=== PATIENT | male | born 1940 | race Caucasian/White ===

== ENCOUNTER 2020-06-18 07:38 | Outpatient (REF) | payer MEDICARE, SELFPAY ==
[2020-06-18 08:41] LABS: MANUAL DIFF FLAG NO
[2020-06-18 08:52] LABS: Basophils Percent Auto 0.7 % (0-2); Eosinophils Absolute Auto 0.2 X10*3/uL (0.0-0.4); Eosinophils Percent Auto 3.4 % (0-4); Hematocrit 35.6 % (42-52); Hemoglobin 11.9 g/dl (14.0-18.0); Imm Gran Abs Auto 0.01 X10*3/uL (0.00-0.03); Imm Gran Pct Auto 0.2 % (0.0-0.4); Lymphocytes Absolute Auto 2.2 X10*3/uL (1.2-4.9); Lymphocytes Percent Auto 36.8 % (20-40); Mean Corpuscular HGB Conc 33.4 g/dl (31.0-36.0); Mean Corpuscular Hemoglobin 30.8 pg (27.0-33.0); Mean Corpuscular Volume 92.2 fL (80-98); Monocytes Absolute Auto 0.6 X10*3/uL (0.1-1.2); Monocytes Percent Auto 10.6 % (2-11); Neutrophils Absolute Auto 2.8 X10*3/uL (2.0-8.3); Neutrophils Percent Auto 48.3 % (45-73); Platelet Count 219 X10*3/uL (160-400); Red Blood Count 3.86 X10*6/uL (4.60-5.80); Red Cell Distribution Width 12.3 % (11.0-16.0); White Blood Count 5.9 X10*3/uL (4.8-10.8)
[2020-06-18 09:10] LABS: Alanine Aminotransferase 14 U/L (0-40); Alkaline Phosphatase 107 U/L (39-117); Anion Gap 12 (12-20); Aspartate Amino Transferase 15 U/L (5-37); Bilirubin Total 0.5 mg/dL (0.0-1.0); Blood Urea Nitrogen 26 mg/dL (9-16); Calcium 9.2 mg/dL (8.4-10.2); Carbon Dioxide 27 mmol/L (22-29); Chloride 104 mmol/L (96-108); Cholesterol 127 mg/dL; Estimated Glomerular Filt Rate 46; Glucose Fasting 169 mg/dL (60-99); HDL Cholesterol 38 mg/dL; LDL Cholesterol Calculated 65 mg/dl; Potassium 4.1 mmol/l (3.3-5.1); Sodium 139 mmol/L (135-145); Total Protein 6.7 g/dL (6.5-8.0); Triglycerides 120 mg/dL
[2020-06-18 09:16] LABS: Estimated Average Glucose 183 mg/dL
[2020-06-18 10:28] LABS: Prostate Specific Antigen 5.58 ng/mL (<0.05-4.0)
== END 2020-06-18 07:39 | disposition home or self-care (01) ==
LOC: HO.LAB 07:38
PROVIDERS: PCP Internal Medicine Medical Oncology; Referring Provider Physician Assistant Surgical; Visit Provider Internal Medicine Medical Oncology
DX: C61 Malignant neoplasm of prostate (principal); E11.8 Type 2 diabetes mellitus with unspecified complications; E78.5 Hyperlipidemia, unspecified
CPT/HCPCS: 36415; 80053; 80061; 83036; 84153; 85025

== ENCOUNTER 2020-09-17 07:44 | Outpatient (REF) | payer MEDICARE, SELFPAY ==
[2020-09-17 10:22] LABS: MANUAL DIFF FLAG NO
[2020-09-17 10:26] LABS: Basophils Percent Auto 0.5 % (0-2); Eosinophils Absolute Auto 0.2 X10*3/uL (0.0-0.4); Eosinophils Percent Auto 2.6 % (0-4); Hematocrit 34.5 % (42-52); Hemoglobin 11.3 g/dl (14.0-18.0); Imm Gran Abs Auto 0.01 X10*3/uL (0.00-0.03); Imm Gran Pct Auto 0.2 % (0.0-0.4); Lymphocytes Percent Auto 32.5 % (20-40); Mean Corpuscular HGB Conc 32.8 g/dl (31.0-36.0); Mean Corpuscular Hemoglobin 30.4 pg (27.0-33.0); Mean Corpuscular Volume 92.7 fL (80-98); Mean Platelet Volume 9.8 fL (9.4-12.4); Monocytes Absolute Auto 0.6 X10*3/uL (0.1-1.2); Monocytes Percent Auto 9.7 % (2-11); Neutrophils Absolute Auto 3.3 X10*3/uL (2.0-8.3); Neutrophils Percent Auto 54.5 % (45-73); Platelet Count 271 X10*3/uL (160-400); Red Blood Count 3.72 X10*6/uL (4.60-5.80); Red Cell Distribution Width 12.4 % (11.0-16.0); White Blood Count 6.1 X10*3/uL (4.8-10.8)
[2020-09-17 10:54] LABS: Alanine Aminotransferase 11 U/L (0-40); Albumin Level 3.9 g/dL (3.5-5.0); Alkaline Phosphatase 114 U/L (39-117); Anion Gap 13 (12-20); Aspartate Amino Transferase 12 U/L (5-37); Bilirubin Total 0.3 mg/dL (0.0-1.0); Blood Urea Nitrogen 24 mg/dL (9-16); Calcium 8.8 mg/dL (8.4-10.2); Carbon Dioxide 28 mmol/L (22-29); Chloride 102 mmol/L (96-108); Cholesterol 134 mg/dL; Estimated Glomerular Filt Rate 49; Glucose Fasting 201 mg/dL (60-99); HDL Cholesterol 44 mg/dL; LDL Cholesterol Calculated 64 mg/dl; Potassium 4.2 mmol/l (3.3-5.1); Sodium 139 mmol/L (135-145); Total Protein 6.8 g/dL (6.5-8.0); Triglycerides 130 mg/dL
[2020-09-17 10:55] LABS: Estimated Average Glucose 192 mg/dL; Hemoglobin A1c % 8.3 %
[2020-09-17 11:13] LABS: Prostate Specific Antigen 5.76 ng/mL (<0.05-4.0)
[2020-09-17 11:19] LABS: Creatinine Urine 84.61 mg/dL
[2020-09-22 14:27] LABS: Testosterone, Total 10 ng/dL (250-1100)
== END 2020-09-17 07:45 | disposition home or self-care (01) ==
LOC: HO.10HDL 07:44
PROVIDERS: Absent Provider Urology; Visit Provider Internal Medicine Medical Oncology
DX: C61 Malignant neoplasm of prostate (principal); E11.8 Type 2 diabetes mellitus with unspecified complications; E78.5 Hyperlipidemia, unspecified
CPT/HCPCS: 36415; 80053; 80061; 82043; 83036; 84153; 84403; 85025

== ENCOUNTER 2020-10-30 07:57 | Outpatient (REF) | payer MEDICARE, SELFPAY ==
[2020-10-30 10:51] LABS: MANUAL DIFF FLAG NO
[2020-10-30 11:00] LABS: Basophils Percent Auto 0.4 % (0-2); Eosinophils Absolute Auto 0.2 X10*3/uL (0.0-0.4); Eosinophils Percent Auto 3.2 % (0-4); Hematocrit 35.2 % (42-52); Hemoglobin 11.7 g/dl (14.0-18.0); Imm Gran Abs Auto 0.01 X10*3/uL (0.00-0.03); Imm Gran Pct Auto 0.1 % (0.0-0.4); Lymphocytes Percent Auto 28.1 % (20-40); Mean Corpuscular HGB Conc 33.2 g/dl (31.0-36.0); Mean Corpuscular Hemoglobin 30.5 pg (27.0-33.0); Mean Corpuscular Volume 91.9 fL (80-98); Mean Platelet Volume 9.9 fL (9.4-12.4); Monocytes Absolute Auto 0.5 X10*3/uL (0.1-1.2); Monocytes Percent Auto 7.7 % (2-11); Neutrophils Absolute Auto 4.2 X10*3/uL (2.0-8.3); Neutrophils Percent Auto 60.5 % (45-73); Platelet Count 264 X10*3/uL (160-400); Red Blood Count 3.83 X10*6/uL (4.60-5.80); Red Cell Distribution Width 12.7 % (11.0-16.0)
[2020-10-30 11:16] LABS: Anion Gap 14 (12-20); Blood Urea Nitrogen 22 mg/dL (9-16); Carbon Dioxide 26 mmol/L (22-29); Chloride 101 mmol/L (96-108); Estimated Glomerular Filt Rate 50; Potassium 4.2 mmol/L (3.3-5.1); Sodium 137 mmol/L (135-145)
== END 2020-10-30 07:58 | disposition home or self-care (01) ==
LOC: HO.10HDL 07:57
PROVIDERS: Visit Provider Internal Medicine Hypertension Specialist
DX: I13.10 Hypertensive heart and chronic kidney disease without heart failure, with stage 1 through stage 4 chronic kidney disease, or unspecified chronic kidney disease (principal); E11.22 Type 2 diabetes mellitus with diabetic chronic kidney disease; N18.30 Chronic kidney disease, stage 3 unspecified
CPT/HCPCS: 36415; 80051; 82310; 82565; 84520; 85025

== ENCOUNTER 2020-12-10 07:32 | Outpatient (REF) | payer MEDICARE, SELFPAY ==
[2020-12-10 10:03] LABS: MANUAL DIFF FLAG NO
[2020-12-10 10:18] LABS: Basophils Absolute Auto 0.1 X10*3/uL (0.0-0.2); Basophils Percent Auto 0.8 % (0-2); Eosinophils Absolute Auto 0.2 X10*3/uL (0.0-0.4); Eosinophils Percent Auto 3.2 % (0-4); Hematocrit 36.2 % (42-52); Imm Gran Abs Auto 0.01 X10*3/uL (0.00-0.03); Imm Gran Pct Auto 0.1 % (0.0-0.4); Lymphocytes Percent Auto 27.3 % (20-40); Mean Corpuscular HGB Conc 33.1 g/dl (31.0-36.0); Mean Corpuscular Hemoglobin 30.5 pg (27.0-33.0); Mean Corpuscular Volume 91.9 fL (80-98); Mean Platelet Volume 9.9 fL (9.4-12.4); Monocytes Absolute Auto 0.6 X10*3/uL (0.1-1.2); Monocytes Percent Auto 8.1 % (2-11); Neutrophils Absolute Auto 4.4 X10*3/uL (2.0-8.3); Neutrophils Percent Auto 60.5 % (45-73); Platelet Count 287 X10*3/uL (160-400); Red Blood Count 3.94 X10*6/uL (4.60-5.80); Red Cell Distribution Width 12.4 % (11.0-16.0); White Blood Count 7.3 X10*3/uL (4.8-10.8)
[2020-12-10 10:33] LABS: Estimated Average Glucose 157 mg/dL; Hemoglobin A1c % 7.1 %
[2020-12-10 10:49] LABS: Creatinine Urine 52.14 mg/dL; Microalbum/Creatinine Ratio Ur 55.6 ug/mg cr
[2020-12-10 10:55] LABS: Alanine Aminotransferase 11 U/L (0-40); Albumin Level 4.1 g/dL (3.5-5.0); Alkaline Phosphatase 144 U/L (39-117); Anion Gap 16 (12-20); Aspartate Amino Transferase 16 U/L (5-37); Bilirubin Total 0.4 mg/dL (0.0-1.0); Blood Urea Nitrogen 28 mg/dL (9-16); Calcium 8.9 mg/dL (8.4-10.2); Carbon Dioxide 26 mmol/L (22-29); Chloride 98 mmol/L (96-108); Cholesterol 142 mg/dL; Estimated Glomerular Filt Rate 46; Glucose Fasting 148 mg/dL (60-99); HDL Cholesterol 41 mg/dL; LDL Cholesterol Calculated 75 mg/dl; Potassium 4.4 mmol/L (3.3-5.1); Sodium 136 mmol/L (135-145); Total Protein 7.2 g/dL (6.5-8.0); Triglycerides 130 mg/dL
== END 2020-12-10 07:33 | disposition home or self-care (01) ==
LOC: HO.10HDL 07:32
PROVIDERS: Visit Provider Internal Medicine Medical Oncology
DX: C61 Malignant neoplasm of prostate (principal); E11.8 Type 2 diabetes mellitus with unspecified complications; E78.5 Hyperlipidemia, unspecified
CPT/HCPCS: 36415; 80053; 80061; 82043; 83036; 85025

== ENCOUNTER 2021-03-13 07:44 | Outpatient (REF) | payer MEDICARE, SELFPAY ==
[2021-03-13 08:09] LABS: MANUAL DIFF FLAG NO
[2021-03-13 08:15] LABS: Basophils Percent Auto 0.2 % (0-2); Eosinophils Absolute Auto 0.2 X10*3/uL (0.0-0.4); Eosinophils Percent Auto 2.2 % (0-4); Hematocrit 34.9 % (42-52); Hemoglobin 11.8 g/dl (14.0-18.0); Imm Gran Abs Auto 0.02 X10*3/uL (0.00-0.03); Imm Gran Pct Auto 0.2 % (0.0-0.4); Lymphocytes Absolute Auto 1.6 X10*3/uL (1.2-4.9); Lymphocytes Percent Auto 19.2 % (20-40); Mean Corpuscular HGB Conc 33.8 g/dl (31.0-36.0); Mean Corpuscular Hemoglobin 30.5 pg (27.0-33.0); Mean Corpuscular Volume 90.2 fL (80-98); Mean Platelet Volume 9.1 fL (9.4-12.4); Monocytes Absolute Auto 0.8 X10*3/uL (0.1-1.2); Monocytes Percent Auto 9.5 % (2-11); Neutrophils Absolute Auto 5.7 X10*3/uL (2.0-8.3); Neutrophils Percent Auto 68.7 % (45-73); Platelet Count 290 X10*3/uL (160-400); Red Blood Count 3.87 X10*6/uL (4.60-5.80); Red Cell Distribution Width 12.3 % (11.0-16.0); White Blood Count 8.4 X10*3/uL (4.8-10.8)
[2021-03-13 08:19] LABS: Estimated Average Glucose 177 mg/dL; Hemoglobin A1c % 7.8 %
[2021-03-13 09:26] LABS: Alanine Aminotransferase 102 U/L (0-40); Albumin Level 4.1 g/dL (3.5-5.0); Alkaline Phosphatase 268 U/L (39-117); Anion Gap 16 (12-20); Aspartate Amino Transferase 109 U/L (5-37); Bilirubin Total 0.6 mg/dL (0.0-1.0); Blood Urea Nitrogen 23 mg/dL (9-16); Calcium 9.6 mg/dL (8.4-10.2); Carbon Dioxide 25 mmol/L (22-29); Chloride 102 mmol/L (96-108); Cholesterol 119 mg/dL; Estimated Glomerular Filt Rate 40; Glucose Fasting 145 mg/dL (60-99); HDL Cholesterol 40 mg/dL; LDL Cholesterol Calculated 53 mg/dl; Potassium 4.5 mmol/L (3.3-5.1); Sodium 138 mmol/L (135-145); Total Protein 7.3 g/dL (6.5-8.0); Triglycerides 133 mg/dL
[2021-03-20 10:22] LABS: Testosterone, Total 12 ng/dL (250-1100)
== END 2021-03-13 07:45 | disposition home or self-care (01) ==
LOC: HO.LAB 07:44
PROVIDERS: Absent Provider Internal Medicine Medical Oncology; PCP Internal Medicine Medical Oncology; Visit Provider Urology
DX: Z12.5 Encounter for screening for malignant neoplasm of prostate (principal); C61 Malignant neoplasm of prostate; E11.8 Type 2 diabetes mellitus with unspecified complications; E78.5 Hyperlipidemia, unspecified; R97.20 Elevated prostate specific antigen [PSA]
CPT/HCPCS: 36415; 80053; 80061; 83036; 84153; 84403; 85025

== ENCOUNTER 2021-03-25 11:17 | Outpatient (REF) | payer MEDICARE, SELFPAY ==
[2021-03-25 13:39] LABS: Amylase 71 U/L (28-100); Gamma Glutamyl Transpeptidase 936 U/L (11-51); Lipase 45 U/L (8-78)
[2021-03-25 14:05] LABS: Erythrocyte Sedimentation Rate 89 MM/HR (0-15)
[2021-03-26 04:19] LABS: ~HepC Num1 0.14 S/CO (0.00-0.79); ~Hepatitis B Surface Antibody NONREACTIVE (Nonreactive); ~Hepatitis C Antibody Nonreactive (Nonreactive)
[2021-03-26 04:26] LABS: HBc Num1 0.08 S/CO (0.00-0.79); HBsAGNum1 0.13 S/CO (0.00-0.99); Hepatitis B Core Antibody Nonreactive (Nonreactive); Hepatitis B Surface Antigen Negative (Negative)
[2021-03-27 03:35] LABS: Hepatitis A Antibody IgM 0.32 Index (0-0.79); ~Hepatitis A Antibody IgM Nonreactive (Nonreactive)
[2021-03-27 12:51] LABS: Carbohydrate Antigen 19-9 85 U/mL (<34)
== END 2021-03-25 11:18 | disposition home or self-care (01) ==
LOC: HO.10HDL 11:17
PROVIDERS: Visit Provider Internal Medicine Medical Oncology
DX: Z01.84 Encounter for antibody response examination (principal); Z11.59 Encounter for screening for other viral diseases; C61 Malignant neoplasm of prostate
CPT/HCPCS: 36415; 82150; 82977; 83690; 85652; 86301; 86704; 86706; 86709; 86803; 87340

== ENCOUNTER 2021-03-30 11:35 | Outpatient (REF) | payer MEDICARE, SELFPAY ==
--- NOTE | ~2021-03-30 | CT_ITS ---
EXAMINATION: CT ABDOMEN WITHOUT CONTRAST CLINICAL INFORMATION: Prostate cancer. Elevated liver function tests. COMPARISON: Previous abdominal ultrasound June [address] of the abdomen and pelvis January 2007 TECHNIQUE: Contiguous axial thin section helical images of the abdomen were performed without contrast. The data set was reformatted in the coronal and sagittal planes and reviewed on an independent workstation. This CT examination was performed using dose optimization techniques as appropriate, variously including the following: *Automated exposure control *Adjustment of mA and/or kV according to patient size (this includes techniques or standardized protocols for targeted exams where dose is matched to indication/reason for exam; i.e. extremities or head) *Use of iterative reconstruction technique DLP: 424 mGy-cm FINDINGS: LUNG BASES: The lung bases are clear. There are pacemaker leads. There is mitral annular calcification. LIVER, GALLBLADDER, BILIARY TREE: The liver is normal in size, shape and attenuation. No focal liver lesion is seen. There is are small high attenuation densities in the gallbladder suggestive of gallstones. There is no intrahepatic or extrahepatic biliary duct dilatation. There is high attenuation seen in the distal common bile duct questionable common bile duct stones. The common bile duct is upper normal in size measuring 8 mm. PANCREAS: Normal SPLEEN: There are calcifications in the spleen suggestive of old granulomatous disease. ADRENAL GLANDS AND KIDNEYS: Normal BOWEL LOOPS: Normal. The appendix is normal. The stomach is normal. LYMPH NODES: There are prominent retroperitoneal lymph nodes. Given history of prostate cancer appearance is worrisome for metastatic disease. VASCULAR: There is evidence of atherosclerotic disease. There is mild dilatation of the left common iliac artery measuring 1.6 cm. BONES: There is mixed lytic and sclerotic disease in the L3 vertebral body suggestive of bony metastatic disease. There is some loss of height of the L3 vertebral body suggestive of mild pathologic compression fracture. There is multilevel degenerative disc disease and facet arthritis lower lumbar spine. CT/CT abdomen wo con IMPRESSION: No liver lesions seen. Gallstones and question small stones in the distal common bile duct. Enlarged retroperitoneal lymph nodes worrisome for metastatic disease. Pathologic compression fracture of the L3 vertebral body also worrisome for metastatic disease.
== END 2021-03-30 11:36 | disposition home or self-care (01) ==
LOC: HO.CT 11:35
PROVIDERS: PCP Internal Medicine Medical Oncology; Visit Provider Internal Medicine Medical Oncology
DX: C61 Malignant neoplasm of prostate (principal); R94.5 Abnormal results of liver function studies
CPT/HCPCS: 74150

== ENCOUNTER 2021-04-08 07:52 | Outpatient (REF) | payer MEDICARE, SELFPAY ==
[2021-04-08 08:43] LABS: MANUAL DIFF FLAG NO
[2021-04-08 08:49] LABS: Basophils Percent Auto 0.6 % (0-2); Eosinophils Absolute Auto 0.2 X10*3/uL (0.0-0.4); Eosinophils Percent Auto 3.1 % (0-4); Hematocrit 32.9 % (42-52); Imm Gran Abs Auto 0.02 X10*3/uL (0.00-0.03); Imm Gran Pct Auto 0.3 % (0.0-0.4); Lymphocytes Absolute Auto 1.8 X10*3/uL (1.2-4.9); Mean Corpuscular HGB Conc 33.4 g/dl (31.0-36.0); Mean Corpuscular Hemoglobin 30.9 pg (27.0-33.0); Mean Corpuscular Volume 92.4 fL (80-98); Mean Platelet Volume 9.4 fL (9.4-12.4); Monocytes Absolute Auto 0.6 X10*3/uL (0.1-1.2); Monocytes Percent Auto 9.8 % (2-11); Neutrophils Absolute Auto 3.6 X10*3/uL (2.0-8.3); Neutrophils Percent Auto 57.2 % (45-73); Platelet Count 246 X10*3/uL (160-400); Red Blood Count 3.56 X10*6/uL (4.60-5.80); Red Cell Distribution Width 12.5 % (11.0-16.0); White Blood Count 6.2 X10*3/uL (4.8-10.8)
[2021-04-08 09:10] LABS: Alanine Aminotransferase 10 U/L (0-40); Albumin Level 3.9 g/dL (3.5-5.0); Alkaline Phosphatase 216 U/L (39-117); Anion Gap 13 (12-20); Aspartate Amino Transferase 13 U/L (5-37); Bilirubin Total 0.5 mg/dL (0.0-1.0); Blood Urea Nitrogen 18 mg/dL (9-16); Calcium 9.2 mg/dL (8.4-10.2); Carbon Dioxide 26 mmol/L (22-29); Chloride 102 mmol/L (96-108); Estimated Glomerular Filt Rate 52; Gamma Glutamyl Transpeptidase 336 U/L (11-51); Glucose Random 143 mg/dL (60-115); Potassium 4.2 mmol/L (3.3-5.1); Sodium 137 mmol/L (135-145); Total Protein 6.8 g/dL (6.5-8.0)
[2021-04-08 09:19] LABS: Lactate Dehydrogenase 159 U/L (118-273)
[2021-04-08 09:29] LABS: Prostate Specific Antigen 7.83 ng/mL (<0.05-4.0)
== END 2021-04-08 07:53 | disposition home or self-care (01) ==
LOC: HO.LAB 07:52
PROVIDERS: PCP Internal Medicine Medical Oncology; Visit Provider Internal Medicine Medical Oncology
DX: Z12.5 Encounter for screening for malignant neoplasm of prostate (principal); C61 Malignant neoplasm of prostate; E11.8 Type 2 diabetes mellitus with unspecified complications; E78.5 Hyperlipidemia, unspecified; I10 Essential (primary) hypertension
CPT/HCPCS: 36415; 80053; 82977; 83615; 84153; 85025

== ENCOUNTER 2021-06-29 11:34 | Outpatient (REF) | payer MEDICARE, SELFPAY ==
[2021-06-29 13:40] LABS: MANUAL DIFF FLAG NO
[2021-06-29 13:48] LABS: Basophils Absolute Auto 0.1 X10*3/uL (0.0-0.2); Eosinophils Absolute Auto 0.5 X10*3/uL (0.0-0.4); Eosinophils Percent Auto 7.4 % (0-4); Hematocrit 36.2 % (42-52); Imm Gran Abs Auto 0.02 X10*3/uL (0.00-0.03); Imm Gran Pct Auto 0.3 % (0.0-0.4); Lymphocytes Absolute Auto 1.6 X10*3/uL (1.2-4.9); Lymphocytes Percent Auto 21.2 % (20-40); Mean Corpuscular HGB Conc 33.1 g/dl (31.0-36.0); Mean Corpuscular Hemoglobin 30.2 pg (27.0-33.0); Mean Platelet Volume 9.9 fL (9.4-12.4); Monocytes Absolute Auto 0.8 X10*3/uL (0.1-1.2); Monocytes Percent Auto 10.3 % (2-11); Neutrophils Absolute Auto 4.4 X10*3/uL (2.0-8.3); Neutrophils Percent Auto 59.8 % (45-73); Platelet Count 298 X10*3/uL (160-400); Red Blood Count 3.98 X10*6/uL (4.60-5.80); Red Cell Distribution Width 13.4 % (11.0-16.0); White Blood Count 7.3 X10*3/uL (4.8-10.8)
[2021-06-29 14:11] LABS: Alanine Aminotransferase 10 U/L (0-40); Albumin Level 3.8 g/dL (3.5-5.0); Alkaline Phosphatase 134 U/L (39-117); Anion Gap 15 (12-20); Aspartate Amino Transferase 19 U/L (5-37); Bilirubin Total 0.6 mg/dL (0.0-1.0); Blood Urea Nitrogen 11 mg/dL (9-16); Calcium 9.1 mg/dL (8.4-10.2); Carbon Dioxide 31 mmol/L (22-29); Chloride 96 mmol/L (96-108); Estimated Glomerular Filt Rate 56; Glucose Random 200 mg/dL (60-115); Sodium 139 mmol/L (135-145); Total Protein 6.6 g/dL (6.5-8.0)
== END 2021-06-29 11:35 | disposition home or self-care (01) ==
LOC: HO.10HDL 11:34
PROVIDERS: Visit Provider Internal Medicine
DX: Z12.5 Encounter for screening for malignant neoplasm of prostate (principal); C61 Malignant neoplasm of prostate
CPT/HCPCS: 36415; 80053; 84153; 85025

== ENCOUNTER 2021-07-15 12:54 | Outpatient (REF) | payer MEDICARE, SELFPAY ==
--- NOTE | ~2021-07-15 | XR_ITS ---
EXAMINATION: XR LUMBOSACRAL SPINE CLINICAL INFORMATION: Status post fusion. COMPARISON: Sagittal imaging bone windows from CT dated 03/30/2021. TECHNIQUE: Three views of the lumbosacral spine. FINDINGS: Once again sclerotic bony lesion partially collapsed at L3. Pedicular screws and rods from L2 to L4. Good position. No listhesis is seen here. Otherwise mild degenerative changes. XR/XR lumbar spine 2-3V IMPRESSION: Hardware in place. Once again sclerotic partially collapsed L3 lesion is seen but no convincing evidence of change compared to sagittal CT image of 03/30/2021. No evidence for hardware failure. No acute finding.
== END 2021-07-15 12:55 | disposition home or self-care (01) ==
LOC: HO.XRAY 12:54
PROVIDERS: PCP Internal Medicine Medical Oncology; Visit Provider Neurological Surgery
DX: M54.50 Low back pain, unspecified (principal)
CPT/HCPCS: 72100

== ENCOUNTER 2021-07-29 07:58 | Outpatient (REF) | payer MEDICARE, SELFPAY ==
[2021-07-29 09:55] LABS: MANUAL DIFF FLAG NO
[2021-07-29 09:58] LABS: Basophils Percent Auto 0.8 % (0-2); Eosinophils Absolute Auto 0.2 X10*3/uL (0.0-0.4); Eosinophils Percent Auto 3.9 % (0-4); Hematocrit 35.3 % (42.0-52.0); Hemoglobin 11.5 g/dl (14.0-18.0); Imm Gran Abs Auto 0.02 X10*3/uL (0.00-0.03); Imm Gran Pct Auto 0.4 % (0.0-0.4); Lymphocytes Absolute Auto 1.6 X10*3/uL (1.2-4.9); Lymphocytes Percent Auto 29.5 % (20-40); Mean Corpuscular HGB Conc 32.6 g/dl (31.0-36.0); Mean Corpuscular Hemoglobin 29.6 pg (27.0-33.0); Mean Corpuscular Volume 90.7 fL (80.0-98.0); Mean Platelet Volume 9.3 fL (9.4-12.4); Monocytes Absolute Auto 0.5 X10*3/uL (0.1-1.2); Monocytes Percent Auto 9.9 % (2-11); Neutrophils Percent Auto 55.5 % (45-73); Platelet Count 344 X10*3/uL (160-400); Red Blood Count 3.89 X10*6/uL (4.60-5.80); Red Cell Distribution Width 13.4 % (11.0-16.0); White Blood Count 5.3 X10*3/uL (4.8-10.8)
[2021-07-29 10:14] LABS: Estimated Average Glucose 169 mg/dL; Hemoglobin A1c % 7.5 %
[2021-07-29 10:31] LABS: Alanine Aminotransferase 13 U/L (0-40); Albumin Level 3.6 g/dL (3.5-5.0); Alkaline Phosphatase 162 U/L (39-117); Anion Gap 14 (12-20); Aspartate Amino Transferase 17 U/L (5-37); Bilirubin Total 0.5 mg/dL (0.0-1.0); Blood Urea Nitrogen 14 mg/dL (9-16); Calcium 9.3 mg/dL (8.4-10.2); Carbon Dioxide 29 mmol/L (22-29); Chloride 99 mmol/L (96-108); Estimated Glomerular Filt Rate > 60; Glucose Fasting 212 mg/dL (60-99); Potassium 3.5 mmol/L (3.3-5.1); Sodium 138 mmol/L (135-145); Total Protein 6.6 g/dL (6.5-8.0)
[2021-07-29 10:55] LABS: Prostate Specific Antigen 8.38 ng/mL (<0.05-4.0)
== END 2021-07-29 07:59 | disposition home or self-care (01) ==
LOC: HO.10HDL 07:58
PROVIDERS: Visit Provider Internal Medicine Medical Oncology
DX: Z12.5 Encounter for screening for malignant neoplasm of prostate (principal); C61 Malignant neoplasm of prostate; E11.8 Type 2 diabetes mellitus with unspecified complications
CPT/HCPCS: 36415; 80053; 83036; 84153; 85025

== ENCOUNTER 2021-09-17 11:54 | Outpatient (REF) | payer MEDICARE, SELFPAY ==
[2021-09-17 14:00] LABS: MANUAL DIFF FLAG NO
[2021-09-17 14:12] LABS: Basophils Absolute Auto 0.1 X10*3/uL (0.0-0.2); Basophils Percent Auto 0.7 % (0-2); Eosinophils Absolute Auto 0.1 X10*3/uL (0.0-0.4); Eosinophils Percent Auto 1.8 % (0-4); Hematocrit 36.4 % (42.0-52.0); Hemoglobin 12.1 g/dl (14.0-18.0); Imm Gran Abs Auto 0.02 X10*3/uL (0.00-0.03); Imm Gran Pct Auto 0.3 % (0.0-0.4); Lymphocytes Absolute Auto 2.1 X10*3/uL (1.2-4.9); Mean Corpuscular HGB Conc 33.2 g/dl (31.0-36.0); Mean Corpuscular Hemoglobin 29.7 pg (27.0-33.0); Mean Corpuscular Volume 89.2 fL (80.0-98.0); Mean Platelet Volume 9.7 fL (9.4-12.4); Monocytes Absolute Auto 0.7 X10*3/uL (0.1-1.2); Monocytes Percent Auto 10.2 % (2-11); Platelet Count 313 X10*3/uL (160-400); Red Blood Count 4.08 X10*6/uL (4.60-5.80); Red Cell Distribution Width 13.2 % (11.0-16.0)
[2021-09-17 14:20] LABS: Estimated Average Glucose 160 mg/dL; Hemoglobin A1c % 7.2 %
[2021-09-17 14:31] LABS: Alanine Aminotransferase 8 U/L (0-40); Alkaline Phosphatase 120 U/L (39-117); Anion Gap 15 (12-20); Aspartate Amino Transferase 17 U/L (5-37); Bilirubin Total 0.6 mg/dL (0.0-1.0); Blood Urea Nitrogen 25 mg/dL (9-16); Calcium 9.6 mg/dL (8.4-10.2); Carbon Dioxide 27 mmol/L (22-29); Chloride 99 mmol/L (96-108); Estimated Glomerular Filt Rate 46; Glucose Random 168 mg/dL (60-115); Potassium 3.8 mmol/L (3.3-5.1); Sodium 137 mmol/L (135-145); Total Protein 7.3 g/dL (6.5-8.0)
[2021-09-18 12:21] LABS: Free Prostate Spec Ag 3.2 ng/mL; Percent Free Prostate Spec Ag 46 % (calc) (>25); Prostate Specific Ag Total 6.9 ng/mL (< OR = 4.0)
== END 2021-09-17 11:55 | disposition home or self-care (01) ==
LOC: HO.10HDL 11:54
PROVIDERS: Visit Provider Internal Medicine Medical Oncology
DX: Z12.5 Encounter for screening for malignant neoplasm of prostate (principal); C61 Malignant neoplasm of prostate
CPT/HCPCS: 36415; 80053; 83036; 84154; 85025

== ENCOUNTER 2021-10-14 08:40 | Outpatient (REF) | payer MEDICARE, SELFPAY ==
[2021-10-14 10:18] LABS: MANUAL DIFF FLAG NO
[2021-10-14 10:22] LABS: Basophils Absolute Auto 0.1 X10*3/uL (0.0-0.2); Basophils Percent Auto 0.8 % (0-2); Eosinophils Absolute Auto 0.2 X10*3/uL (0.0-0.4); Eosinophils Percent Auto 2.5 % (0-4); Hematocrit 33.3 % (42.0-52.0); Imm Gran Abs Auto 0.02 X10*3/uL (0.00-0.03); Imm Gran Pct Auto 0.3 % (0.0-0.4); Lymphocytes Absolute Auto 1.7 X10*3/uL (1.2-4.9); Lymphocytes Percent Auto 27.4 % (20-40); Mean Corpuscular Volume 90.7 fL (80.0-98.0); Mean Platelet Volume 9.5 fL (9.4-12.4); Monocytes Absolute Auto 0.6 X10*3/uL (0.1-1.2); Monocytes Percent Auto 10.3 % (2-11); Neutrophils Absolute Auto 3.5 x10*3/uL (2.0-8.3); Neutrophils Percent Auto 58.7 % (45-73); Platelet Count 285 X10*3/uL (160-400); Red Blood Count 3.67 X10*6/uL (4.60-5.80); Red Cell Distribution Width 13.5 % (11.0-16.0)
[2021-10-14 10:36] LABS: Estimated Average Glucose 160 mg/dL; Hemoglobin A1c % 7.2 %
[2021-10-14 10:44] LABS: Alanine Aminotransferase 8 U/L (0-40); Albumin Level 3.8 g/dL (3.5-5.0); Alkaline Phosphatase 114 U/L (39-117); Anion Gap 12 (12-20); Aspartate Amino Transferase 16 U/L (5-37); Bilirubin Total 0.4 mg/dL (0.0-1.0); Blood Urea Nitrogen 18 mg/dL (9-16); Calcium 9.3 mg/dL (8.4-10.2); Carbon Dioxide 27 mmol/L (22-29); Chloride 103 mmol/L (96-108); Cholesterol 148 mg/dL; Estimated Glomerular Filt Rate 47; Glucose Fasting 181 mg/dL (60-99); HDL Cholesterol 61 mg/dL; LDL Cholesterol Calculated 69 mg/dl; Potassium 4.2 mmol/L (3.3-5.1); Sodium 138 mmol/L (135-145); Total Protein 6.8 g/dL (6.5-8.0); Triglycerides 93 mg/dL
[2021-10-14 11:13] LABS: Ferritin 184 ng/mL (20-250); Prostate Specific Antigen 9.84 ng/mL (<0.05-4.0)
== END 2021-10-14 08:41 | disposition home or self-care (01) ==
LOC: HO.10HDL 08:40
PROVIDERS: Visit Provider Internal Medicine Medical Oncology
DX: Z12.5 Encounter for screening for malignant neoplasm of prostate (principal); C61 Malignant neoplasm of prostate; E78.5 Hyperlipidemia, unspecified; E11.22 Type 2 diabetes mellitus with diabetic chronic kidney disease; N18.9 Chronic kidney disease, unspecified; D63.1 Anemia in chronic kidney disease
CPT/HCPCS: 36415; 80053; 80061; 82728; 83036; 84153; 85025

== ENCOUNTER 2021-12-21 11:43 | Outpatient (REF) | payer MEDICARE, SELFPAY ==
[2021-12-21 13:22] LABS: MANUAL DIFF FLAG NO
[2021-12-21 13:25] LABS: Basophils Percent Auto 0.6 % (0-2); Eosinophils Absolute Auto 0.1 X10*3/uL (0.0-0.4); Eosinophils Percent Auto 1.7 % (0-4); Hematocrit 34.4 % (42.0-52.0); Hemoglobin 11.5 g/dl (14.0-18.0); Imm Gran Abs Auto 0.01 X10*3/uL (0.00-0.03); Imm Gran Pct Auto 0.2 % (0.0-0.4); Lymphocytes Absolute Auto 1.7 X10*3/uL (1.2-4.9); Lymphocytes Percent Auto 26.4 % (20-40); Mean Corpuscular HGB Conc 33.4 g/dl (31.0-36.0); Mean Corpuscular Hemoglobin 29.9 pg (27.0-33.0); Mean Corpuscular Volume 89.6 fL (80.0-98.0); Mean Platelet Volume 9.4 fL (9.4-12.4); Monocytes Absolute Auto 0.8 X10*3/uL (0.1-1.2); Monocytes Percent Auto 12.3 % (2-11); Neutrophils Absolute Auto 3.9 x10*3/uL (2.0-8.3); Neutrophils Percent Auto 58.8 % (45-73); Platelet Count 298 X10*3/uL (160-400); Red Blood Count 3.84 X10*6/uL (4.60-5.80); Red Cell Distribution Width 13.2 % (11.0-16.0); White Blood Count 6.6 X10*3/uL (4.8-10.8)
[2021-12-21 13:45] LABS: Estimated Average Glucose 148 mg/dL; Hemoglobin A1c % 6.8 %
[2021-12-21 14:26] LABS: Alanine Aminotransferase 8 U/L (0-40); Albumin Level 3.9 g/dL (3.5-5.0); Alkaline Phosphatase 125 U/L (39-117); Anion Gap 16 (12-20); Aspartate Amino Transferase 22 U/L (5-37); Bilirubin Total 0.2 mg/dL (0.0-1.0); Blood Urea Nitrogen 30 mg/dL (9-16); Calcium 9.6 mg/dL (8.4-10.2); Carbon Dioxide 26 mmol/L (22-29); Chloride 98 mmol/L (96-108); Estimated Glomerular Filt Rate 32; Glucose Random 203 mg/dL (60-115); Potassium 3.9 mmol/L (3.3-5.1); Sodium 136 mmol/L (135-145); Total Protein 7.3 g/dL (6.5-8.0)
[2021-12-21 14:50] LABS: PSA,Total (Free>4and<10) 13.65 ng/mL (0.00-4.00)
== END 2021-12-21 11:44 | disposition home or self-care (01) ==
LOC: HO.10HDL 11:43
PROVIDERS: Visit Provider Internal Medicine Medical Oncology
DX: C61 Malignant neoplasm of prostate (principal); E11.8 Type 2 diabetes mellitus with unspecified complications; Z12.5 Encounter for screening for malignant neoplasm of prostate
CPT/HCPCS: 36415; 80053; 83036; 84153; 85025

== ENCOUNTER 2022-01-28 21:32 | Inpatient (IN) | payer MEDICARE, SELFPAY ==
--- NOTE | ~2022-01-28 | XR_ITS ---
EXAMINATION: PORTABLE CHEST 1 VIEW CLINICAL INFORMATION: cough flu . COMPARISON: No recent pertinent prior studies are available for comparison. TECHNIQUE: Portable frontal view of the chest was obtained. FINDINGS: Lungs are mildly hypoexpanded with no superimposed effusion, edema, or pneumothorax. Subtle increased markings at the left base may be due to overlying structures. Patient status post sternotomy and CABG with vascular calcification in aorta and mitral annular calcification seen. Dual-lead pacemaker is noted with lead tips overlying the expected right atrium and right ventricle. XR/XR chest 1V IMPRESSION: Hypoexpanded with chronic appearing and postoperative changes but no definitive acute airspace disease.
--- NOTE | 2022-01-28 21:37 | ED_ITS ---
HPI - General Adult General Chief complaint: General Medical Stated complaint: Hypoglycemia Time Seen by Provider: 01/28/22 21:36 Source: patient and family Mode of arrival: EMS History of Present Illness HPI narrative: Patient 81 years old legally blind with history of diabetes, hypertension, coronary disease status post CABG and pacemaker, history of prostate cancer lives alone at home patient just admitted 2 days ago with influenza A comes here for feeling weak poor oral intake for last 2 days nasal congestion and dry cough no significant shortness of breath but patient feels very tired and exhausted also patient blood sugar been on the lower side as he is not eating lowest blood sugar was 64 today Related Data Home Medications Medication Instructions Recorded Confirmed Lantus U-100 Insulin 01/28/22 Novolog Flexpen U-100 Insulin 01/28/22 amlodipine 01/28/22 apalutamide 60 mg tablet (Erleada) 60 mg PO 01/28/22 doxycycline hyclate 100 mg tablet 1 tab PO BID 01/28/22 01/28/22 furosemide 40 mg tablet 1 tab PO BID 01/28/22 01/28/22 meclizine 25 mg tablet 1 tab PO TID 01/28/22 01/28/22 niacin 500 mg tablet 1 tab PO DAILY 01/28/22 01/28/22 potassium chloride 20 mEq 1 tab PO DAILY 01/28/22 01/28/22 tablet,extended release Allergies Allergy/AdvReac Type Severity Reaction Status Date / Time Penicillins [PCN] Allergy Unknown UNKNOWN Unverified 05/29/20 16:10 Review of Systems Review of Systems: Yes all other systems are reviewed and are negative [facility] Past Medical History Medical History (Updated 01/28/22 @ 23:26 by Vicente Laurent MD) CKD (chronic kidney disease) stage 3, GFR 30-59 ml/min Diabetes Diabetes with retinopathy Glaucoma History of heart block HTN (hypertension) Legally blind Surgical History (Updated 01/28/22 @ 22:49 by Steve Ness MD) Status post cardiac pacemaker procedure Social History Social History Advance Directives: No Advance Directives Information Provided: Yes Physical Exam ED Vital Signs: Vital Signs - 24 hr 01/28/22 21:46 01/28/22 22:30 Temperature 98.6 F 97.7 F Pulse Rate 90 97 Respiratory Rate 18 16 Blood Pressure 132/70 137/77 Pulse Oximetry 96 94 BMI result Body Mass Index 28.4 Appearance: Alert. Oriented X3. No acute distress. Eyes: No pallor/icterus, legally blind ENT: Pharynx normal. Oral Mucosa moist Neck: Normal inspection. Neck supple. CVS: Normal heart rate and rhythm. Pulses normal. Respiratory: No respiratory distress. Equal air entry bilateral, no w heezing/rales/rhonchi Abdomen: Soft and nontender. Bowel sounds are present, no mass palpable, no CVA tenderness Skin: Skin warm and dry. Normal skin color. Normal skin turgor. Extremities: No lower extremity edema. No calf tenderness Neuro: Oriented X 3. No motor deficit. Medical Decision Making MDM Narrative Medical decision making narrative: Patient influenza A failure to thrive alone at home at this time unable take care of him self will admit patient for supportive treatment including IV hydration Lab Data Lab results reviewed: Yes I reviewed the patient's lab results. Result diagrams: 01/28/22 22:10 01/28/22 22:59 Labs: Lab Results 01/28/22 01/28/22 01/28/22 Range/Units 22:10 22:10 22:10 WBC 5.7 (4.8-10.8) X10*3/uL RBC 4.25 L (4.60-5.80) X10*6/uL Hgb 12.7 L (14.0-18.0) g/dl Hct 37.6 L (42.0-52.0) % MCV 88.5 (80.0-98.0) fL MCH 29.9 (27.0-33.0) pg MCHC 33.8 (31.0-36.0) g/dl RDW 13.7 (11.0-16.0) % Plt Count 268 (160-400) X10*3/uL MPV 10.0 (9.4-12.4) fL Immature Gran % (Auto) 0.4 (0.0-0.4) % Neut % (Auto) 55.4 (45-73) % Lymph % (Auto) 29.9 (20-40) % [place] % (Auto) 13.5 H (2-11) % Eos % (Auto) 0.4 (0-4) % Baso % (Auto) 0.4 (0-2) % Lymph # (Auto) 1.7 (1.2-4.9) X10*3/uL [place] # (Auto) 0.8 (0.1-1.2) X10*3/uL Eos # (Auto) 0.0 (0.0-0.4) X10*3/uL Baso # (Auto) 0.0 (0.0-0.2) X10*3/uL Abs Immat Gran (auto) 0.02 (0.00-0.03) X10*3/uL Absolute Neuts (auto) 3.2 (2.0-8.3) x10*3/uL Absolute Nucleated RBC 0.000 (0.0-0.012) X10*3/uL Nucleated RBC % (auto) 0.0 (0.0-0.2) /100WBC COVID-19 (MICHAELA) Negative (Negative) COVID-19 Clin Com See Note Influenza Type A (SIMA) Positive A (Negative) Influenza Type B (SIMA) Negative (Negative) Influenza A & B Note See Note ECG Data Attestation: I personally reviewed and interpreted this ECG as follows: Interpretation: Ventricularly paced rhythm rate 71 beats per minute no acute ST T wave changes no acute ischemia Discharge Plan Discharge Clinical Impression: Influenza A, Failure to thrive in adult Patient Disposition: Admitted As Inpatient
[2022-01-28 21:46] VITALS: BP 132/70; PULSE 90; RESP 18; TEMP 37; O2SAT 96; BMI 28.4
--- NOTE | 2022-01-28 21:52 | ECG_ITS ---
Test Reason : WEAKNESS Blood Pressure : / mmHG Vent. Rate : 071 BPM Atrial Rate : 097 BPM P-R Int : 000 ms QRS Dur : 196 ms QT Int : 484 ms P-R-T Axes : 000 -74 095 degrees QTc Int : 525 ms Ventricular-paced rhythm Abnormal ECG When compared with ECG of 24-AUG-2017 11:15, Electronic ventricular pacemaker has replaced Wide QRS rhythm Referred By: Vicente Laurent Electronically Signed By:LILO JONES
[2022-01-28] MEDS: 0.9 % Sodium Chloride 1,000 ML 999 ML IV (22:13)
[2022-01-28 22:30] VITALS: BP 137/77; PULSE 97; RESP 16; TEMP 36.5; O2SAT 94
[2022-01-28 22:30] LABS: MANUAL DIFF FLAG NO
--- NOTE | 2022-01-28 22:30 | PM.IMHP ---
History of Present Illness Date of Service: 01/28/22 Chief Complaint: Failure to thrive 81 year old male with IDDM with retinopathy/nephropathy, glaucoma, legally blind, CKD3, CAD s/p CABGx4, Complete heart block s/p pacemaker, HTN, HLD, history of prostate cancer, legally blind, chronic venous stasis, uses walker at home to get around, he lives with his who is presently hospitalized with influenza. Patient was brought in by family due to failure to thrive, he has not be able to eat much. Sugar was 54 at home and 64 here. He is also positive for influenza with active symptoms, negative covid Review of Systems Review of Systems: Gen: no fever Resp: no sob, + cough CV: no chest, no BOWERS, no leg edema GI: No n/v, no abd pain Neuro: No confusion Yes all other systems are reviewed and are negative [facility] Medical History (Updated 01/28/22 @ 23:28 by Vicente Laurent MD) CKD (chronic kidney disease) stage 3, GFR 30-59 ml/min Diabetes Diabetes with retinopathy Glaucoma History of heart block HTN (hypertension) Legally blind Surgical History (Updated 01/28/22 @ 22:49 by Steve Ness MD) Status post cardiac pacemaker procedure Social History Advance Directives: No Advance Directives Information Provided: Yes Meds Allergies Allergy/AdvReac Type Severity Reaction Status Date / Time Penicillins [PCN] Allergy Unknown UNKNOWN Unverified 05/29/20 16:10 Active Medications: Current Medications Sodium Chloride (Ns) 1,000 mls @ 999 mls/hr IV .Q1H1M ONE Stop: 01/28/22 23:09 Last Admin: 01/28/22 22:13 Dose: 999 mls/hr Documented by: Home Medications Medication Instructions Recorded Confirmed Last Taken Type Lantus U-100 Insulin 01/28/22 01/28/22 History Novolog Flexpen U-100 Insulin 01/28/22 01/28/22 History amlodipine 01/28/22 01/28/22 History apalutamide 60 mg tablet (Erleada) 60 mg PO 01/28/22 01/28/22 History doxycycline hyclate 100 mg tablet 1 tab PO BID 01/28/22 01/28/22 01/28/22 History furosemide 40 mg tablet 1 tab PO BID 01/28/22 01/28/22 01/28/22 History meclizine 25 mg tablet 1 tab PO TID 01/28/22 01/28/22 01/28/22 History niacin 500 mg tablet 1 tab PO DAILY 01/28/22 01/28/22 01/28/22 History potassium chloride 20 mEq 1 tab PO DAILY 01/28/22 01/28/22 01/28/22 History tablet,extended release Physical Exam Vital Signs and Narrative: Vital Signs: Last Vital Signs Temp 98.6 F 01/28/22 21:46 Pulse 90 01/28/22 21:46 Resp 18 01/28/22 21:46 BP 132/70 01/28/22 21:46 Pulse Ox 96 01/28/22 21:46 BMI result Body Mass Index 28.4 Const: Other: Constitutional: Alert, in no distress, Mental Status: Oriented to person, place and time. Eyes: Pupils are equal, round and reactive to light. Ear, Nose and Throat: Oropharynx clear, mucous membranes moist. Ears and nose without eformities. Trachea midline. Respiratory: Clear to auscultation. No wheezing, rales or rhonchi. Cardiovascular: S1 S2 regular. No murmurs, rubs or gallops. Gastrointestinal: Abdomen soft, non-tender, non-distended. Normal bowel sounds.? Neurologic: Cranial nerves II-XII grossly intact. No focal neurological deficits. Moves all extremities spontaneously.? Skin: No rashes or lesions.?Chronic venous stasis changes of both leg, left is bigger than right--this is chronic Musculoskeletal: No cyanosis or clubbing. Psychiatric: Normal mood and affect? Results Labs CBC and Chem 7: 01/28/22 22:10 01/28/22 22:59 Assessment and Plan (1) Hypoglycemia: Status: Acute (2) HTN (hypertension): Status: Acute (3) Diabetes: Status: Acute (4) Failure to thrive in adult: Status: Acute Plan 81 year old male with IDDM with retinopathy/nephropathy, glaucoma, legally blind, CKD3, CAD s/p CABGx4, Complete heart block s/p pacemaker, HTN, HLD, history of prostate cancer, legally blind, chronic venous stasis, uses walker at home to get around, he lives with his who is presently hospitalized with influenza. He presents with weakness, adult failure to thrive, hypoglycemia and + Influenza. #influenza--supportive care and Tamiflu #Failure to thrive, weakness d/t influenze -Hydrate, PT eval before discharge #? Not able to eat--Bed side swallow eval by speech #Diabetes #HTN #HLD #DVT prophylaxis--heparin Admission qamar span at least 2 midnight due to need for treatment for influenze causing failure to thrive in elderly, hypoglycemia unable to eat and need IVF Quality Stroke Does the patient have a stroke diagnosis?: No VTE Prior VTE?: No VTE Risk Level:: Medical - moderate - high VTE Device Contraindication: Treatment Not Tolerated VTE Drug Contraindication: N/A - Med Ordered
[2022-01-28 22:38] LABS: Basophils Percent Auto 0.4 % (0-2); Eosinophils Percent Auto 0.4 % (0-4); Hematocrit 37.6 % (42.0-52.0); Hemoglobin 12.7 g/dl (14.0-18.0); Imm Gran Abs Auto 0.02 X10*3/uL (0.00-0.03); Imm Gran Pct Auto 0.4 % (0.0-0.4); Lymphocytes Absolute Auto 1.7 X10*3/uL (1.2-4.9); Lymphocytes Percent Auto 29.9 % (20-40); Mean Corpuscular HGB Conc 33.8 g/dl (31.0-36.0); Mean Corpuscular Hemoglobin 29.9 pg (27.0-33.0); Mean Corpuscular Volume 88.5 fL (80.0-98.0); Monocytes Absolute Auto 0.8 X10*3/uL (0.1-1.2); Monocytes Percent Auto 13.5 % (2-11); Neutrophils Absolute Auto 3.2 x10*3/uL (2.0-8.3); Neutrophils Percent Auto 55.4 % (45-73); Platelet Count 268 X10*3/uL (160-400); Red Blood Count 4.25 X10*6/uL (4.60-5.80); Red Cell Distribution Width 13.7 % (11.0-16.0); White Blood Count 5.7 X10*3/uL (4.8-10.8)
[2022-01-28 22:46] LABS: COVID-19 Test Negative (Negative); IDNOW Serial# 9DB6401D; Influenza A Positive (Negative); Influenza B2 Negative (Negative)
[2022-01-28 23:09] VITALS: RESP 16; O2SAT 95
[2022-01-28 23:22] LABS: Anion Gap 17 (12-20); Blood Urea Nitrogen 51 mg/dL (9-16); Calcium 9.1 mg/dL (8.4-10.2); Carbon Dioxide 25 mmol/L (22-29); Chloride 97 mmol/L (96-108); Creatinine Clr Calc Pharmacy 32.3; Estimated Glomerular Filt Rate 38; Glucose Random 132 mg/dL (60-115); Potassium 3.6 mmol/L (3.3-5.1); Sodium 135 mmol/L (135-145)
[2022-01-28] MEDS: Oseltamivir Phosphate 75 MG CAPSULE PO (23:31)
[2022-01-29] MEDS: Dextrose 5 % and 0.45 % NaCl 1,000 ML 75 ML IVCONT ×2 (01:06→13:55)
--- NOTE | 2022-01-29 06:26 | PC.NURSE ---
pt cleaned, linens changed. pt resting comfortably at this time.
[2022-01-29 07:36] VITALS: BP 137/65; PULSE 81; RESP 14; O2SAT 98
--- NOTE | 2022-01-29 08:12 | HO.PM.IMPN ---
Subjective Subjective Date of Service: 01/29/22 Interval History: FTT, influenza A Review of Systems Generalized weak, tolerating little bit of diet Patient denies any chest pain or nausea or vomiting or abdominal pain. Physical Exam Vital Signs: Vital Signs: Last Vital Signs Temp 97.7 F 01/28/22 22:30 Pulse 81 01/29/22 07:36 Resp 14 01/29/22 07:36 BP 137/65 01/29/22 07:36 Pulse Ox 98 01/29/22 07:36 BMI result Body Mass Index 28.4 Appearance: Alert.? Oriented x3.? Generalized weak, not eating much. cvs: rrr, [id number] . res: clear to auscultation ,no rhonchii or wheezing abd: no rebound or guarding ,nt, bs present. ext pulses present , no cyanosis ,has b/l leg ch changes . neuro: axo3 , nonfocal. Objective Data Active Medications Acetaminophen (Acetaminophen 325 Mg Tablet) 650 mg PO Q6H PRN PRN Reason: Pain, Mild (Pain Scale 1-3) Dextrose/Sodium Chloride (D51/2ns) 1,000 mls @ 75 mls/hr IVCONT .[id number] [facility] Last Admin: 01/29/22 01:06 Dose: 75 mls/hr Documented by: SUZETTE Magnesium Hydroxide (Milk Of Magnesia 30 Ml Oral.Susp) 30 ml PO DAILY PRN PRN Reason: Constipation Melatonin (Melatonin 3 Mg Tablet) 6 mg PO BEDTIME PRN PRN Reason: Insomnia Ondansetron HCl (Ondansetron Hcl 4 Mg/2 Ml Vial) 4 mg IVPUSH Q8H PRN PRN Reason: Nausea and Vomiting Oseltamivir Phosphate (Oseltamivir Phosphate 30 Mg Capsule) 30 mg PO Q12H [facility] Stop: 02/02/22 11:59 Sodium Chloride (0.9 % Sodium Chloride Flush 3 Ml Syringe) 3 ml IVFLUSH QSHIFT [facility] Last Admin: 01/29/22 07:12 Dose: Not Given Documented by: YORDAN Non-Admin Reason: IV Running Labs CBC & Chem 7: 01/28/22 22:10 01/28/22 22:59 Labs: Laboratory Results - last 24 hr 01/28/22 01/28/22 01/28/22 22:10 22:10 22:10 MCV 88.5 MCH 29.9 MCHC 33.8 RDW 13.7 Plt Count 268 MPV 10.0 Immature Gran % (Auto) 0.4 Neut % (Auto) 55.4 Lymph % (Auto) 29.9 Page % (Auto) 13.5 H Eos % (Auto) 0.4 Baso % (Auto) 0.4 Lymph # (Auto) 1.7 Page # (Auto) 0.8 Eos # (Auto) 0.0 Baso # (Auto) 0.0 Abs Immat Gran (auto) 0.02 Absolute Neuts (auto) 3.2 Absolute Nucleated RBC 0.000 Nucleated RBC % (auto) 0.0 Anion Gap Estim Creat Clear Calc Estimated GFR Random Glucose Calcium COVID-19 (MICHAELA) Negative COVID-19 Clin Com See Note Influenza Type A (SIMA) Positive A Influenza Type B (SIMA) Negative Influenza A & B Note See Note 01/28/22 22:59 MCV MCH MCHC RDW Plt Count MPV Immature Gran % (Auto) Neut % (Auto) Lymph % (Auto) Page % (Auto) Eos % (Auto) Baso % (Auto) Lymph # (Auto) Page # (Auto) Eos # (Auto) Baso # (Auto) Abs Immat Gran (auto) Absolute Neuts (auto) Absolute Nucleated RBC Nucleated RBC % (auto) Anion Gap 17 Estim Creat Clear Calc 32.3 Estimated GFR 38 Random Glucose 132 H Calcium 9.1 COVID-19 (MICHAELA) COVID-19 Clin Com Influenza Type A (SIMA) Influenza Type B (SIMA) Influenza A & B Note Assessment and Plan (1) Influenza A: Status: Acute (2) Failure to thrive in adult: Status: Acute (3) MARIALUISA (acute kidney injury): Status: Acute Plan 81 year old male with IDDM with retinopathy/nephropathy, glaucoma, legally blind,? CKD3, CAD s/p CABGx4, Complete heart block s/p pacemaker, HTN, HLD, ? history of prostate cancer,? legally blind, chronic venous stasis, uses walker at home to get around, he lives with his who is presently hospitalized with influenza. He presents with weakness, adult failure to thrive, hypoglycemia and + Influenza. influenza--supportive care and Tamiflu Swallow evaluation Failure to thrive, weakness d/t influenze -Hydrate, PT eval recommended-rehab. ? Not able to eat--Bed side swallow eval by speech Diabetes: fs with coverage , continue home regimen. HTN: Continue home meds. HLD: Continue home medications marialuisa on ckd (? stage): gentle hydration DVT prophylaxis--heparin Quality Stroke Does the patient have a stroke diagnosis?: No VTE Prior VTE?: No VTE Risk Level:: Medical - moderate - high VTE Device Contraindication: Treatment Not Tolerated VTE Drug Contraindication: N/A - Med Ordered
[2022-01-29 08:41] VITALS: BP 137/65; PULSE 81; O2SAT 98
--- NOTE | 2022-01-29 11:41 | PHA.MEDREC ---
MED [facility], [place] ALSO LISTED LISINOPRIL 5 MG, HAS NOT BEEN FILLED RECENTLY, PATIENTS DAUGHTER WILL CONFIRM IF HE IS SUPPOSED TO BE ON IT STILL AND LET US KNOW Pharmacy Consult ? Medication Reconciliation Pharmacy has completed the medication reconciliation.
--- NOTE | 2022-01-29 11:45 | MHC.SL.SWA ---
Speech Pathologist Impression: WFL Dysphasia Diet Status: No Change Liquid Consistency and Strategies for Safe Swallow: Liquid Intake Recommendation: Thin Liquid Intake Strategies: Small Sips Solid Food Consistency: Dietary Recommendations: Regular Additional Modifications to Solid Foods: Patient seen for bedside dysphagia evaluation while in the ED. Patient denied difficulty swallowing. No clinical signs of aspiration with PO trials. Recommend REGULAR solids and THIN liquids, with pills WHOLE in LIQUID. D/t limited dentition, recommend avoid tough, difficult to chew solids, sticky consistencies; alternate bites of food with sips of liquid, chew food well. Patient is able to feed himself. SUPERVISOR PUBLIC MESSAGE SERVICE to f/u 1x time. Oral Medication Intake: Whole with Liquid Please contact the pharmacy regarding appropriate crushable or liquid drug formulations that are available whenever modified delivery is recommended. Compensatory Strategies and Precautions to be Taken for Safe Swallow: Sitting Upright (90 deg) Small Bites and Sips Alternate Liquids/Solids Rate of Ingestion Change Avoid Specific Foods Supervision While Eating and Drinking for Safe Swallow: Intermittent Supervision Foods to Avoid: D/t limited dentition, recommend avoid tough, difficult to chew solids, sticky consistencies. Swallowing Recommended Treatments: Compens. Strategy Educat. Recommendation for Speech: Inpatient Speech Therapy Comment: 1 f/u Frequency/Duration: Date Range for Service Req: Timeline to reassess: Arch Pad Cementer Clinican/Clinical Fellow: No Supervisory Statement: I have reviewed and agree with the student/clinical fellow's documentation: N/A Speech Language Pathologist: Anila Scott M.A., CCC-SUPERVISOR PUBLIC MESSAGE SERVICE
[2022-01-29] MEDS: Oseltamivir Phosphate 30 MG CAPSULE PO (13:55)
[2022-01-29 14:40] LABS: Glucose, Whole Blood 250 mg/dL (60-115)
[2022-01-29] MEDS: Insulin Lispro 100 UNIT/ML 3 ML VIAL SUBCUT ×2 (14:45→20:03)
--- NOTE | 2022-01-29 15:37 | PC.NURSE ---
RN-RN report called in to [facility]. room is being cleaned. will update when the room is ready.
[2022-01-29 16:30] VITALS: BP 158/64; PULSE 70; RESP 17; TEMP 36.4; O2SAT 97
[2022-01-29 16:44] LABS: Glucose, Whole Blood 230 mg/dL (60-115)
[2022-01-29 19:02] VITALS: BP 123/55; PULSE 62; RESP 18; TEMP 36.2; O2SAT 95
[2022-01-29] MEDS: 0.9 % Sodium Chloride Flush 3 ML SYRINGE IVFLUSH (20:03)
[2022-01-29] MEDS: Dorzolamide/Timolo 2.23%/0.68% 10 ML DRBTL 1 DROP EYE-RIGHT (20:03)
[2022-01-29] MEDS: Brimonidine Tartrate 0.2% Oph 5 ML BOTTLE 1 DROP EYE-BOTH (20:03)
[2022-01-29] MEDS: Insulin Glargine,Hum.rec.anlog 100 UNIT/ML 10 ML VIAL 10 UNIT SUBCUT (20:03)
[2022-01-29 20:16] LABS: Glucose, Whole Blood 258 mg/dL (60-115)
[2022-01-30] VITALS: BP 129/65; PULSE 55; RESP 18; TEMP 36.7; O2SAT 97
[2022-01-30] MEDS: Oseltamivir Phosphate 30 MG CAPSULE PO ×2 (00:46→11:41)
[2022-01-30 02:38] LABS: Glucose, Whole Blood 112 mg/dL (60-115)
[2022-01-30] MEDS: Dextrose 5 % and 0.45 % NaCl 1,000 ML 75 ML IVCONT (02:49)
[2022-01-30 03:56] VITALS: BP 121/49; PULSE 57; RESP 20; TEMP 36.8; O2SAT 94
[2022-01-30 07:24] LABS: Glucose, Whole Blood 150 mg/dL (60-115)
[2022-01-30 07:43] VITALS: BP 156/77; PULSE 58; RESP 20; TEMP 36.6; O2SAT 96
[2022-01-30 08:01] LABS: Anion Gap 12 (12-20); Blood Urea Nitrogen 34 mg/dL (9-16); Carbon Dioxide 27 mmol/L (22-29); Chloride 101 mmol/L (96-108); Creatinine Clr Calc Pharmacy 42.2; Estimated Glomerular Filt Rate 51; Glucose Random 140 mg/dL (60-115); Potassium 3.5 mmol/L (3.3-5.1); Sodium 136 mmol/L (135-145)
[2022-01-30 08:06] LABS: Calcium 8.7 mg/dL (8.4-10.2)
--- NOTE | 2022-01-30 08:13 | MHC.CM.PN ---
CM met with Patient at bedside and addressed IMM with him, providing him with the original and placing a copy on the chart. 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 Home/no services is the goal and CM has initiated and will follow for dc planning. PCP is Dr. David Alva and Patient has received Covid/[employer] vax X3.
--- NOTE | 2022-01-30 08:39 | MHC.CM.PN ---
CM met briefly at bedside with Patient and addressed IMM with him (Original left at bedside and a copy placed on the chart)but per his request, CM also spoke with Patient's /HCP/Padmini at [phone]. Patient lives in an Senior apartment complex with his and he uses a walker to assist with mobility. [facility] TIRE WRAPPER to assist with ADLs. PT is recommending STR and Patient/ are agreeable to the initiation of a SNF search. CM has initiated and will follow for dc planning. Patient is Legally Blind and he has received [employer]/covid vax X3. Patient's PCP is Dr. Rashad Lal.
--- NOTE | 2022-01-30 08:56 | MHC.CM.PN ---
CM Initial Assessment done today at 8:16 AM is written in the wrong chart.
[2022-01-30] MEDS: 0.9 % Sodium Chloride Flush 3 ML SYRINGE IVFLUSH (09:11)
[2022-01-30] MEDS: Ferrous Sulfate 324 MG TABLET.DR PO (09:11)
[2022-01-30] MEDS: Atorvastatin Calcium 80 MG TABLET PO (09:11)
[2022-01-30] MEDS: amLODIPine Besylate 10 MG TABLET PO (09:12)
[2022-01-30] MEDS: Aspirin Enteric Coated 81 MG TABLET.DR PO (09:12)
[2022-01-30] MEDS: Dorzolamide/Timolo 2.23%/0.68% 10 ML DRBTL 1 DROP EYE-RIGHT (09:13)
[2022-01-30] MEDS: Insulin Glargine,Hum.rec.anlog 100 UNIT/ML 10 ML VIAL 10 UNIT SUBCUT (09:13)
[2022-01-30] MEDS: Brimonidine Tartrate 0.2% Oph 5 ML BOTTLE 1 DROP EYE-BOTH (09:13)
[2022-01-30 11:13] LABS: Glucose, Whole Blood 199 mg/dL (60-115)
[2022-01-30] MEDS: Insulin Lispro 100 UNIT/ML 3 ML VIAL SUBCUT (11:36)
--- NOTE | 2022-01-30 12:37 | W.MHC.F2F ---
Service Date Service Date: 01/30/22 Encounter Date of encounter: 01/30/22 Encounter: Decreased p.o. intake, dehydration . Reasons for Services Signs and symptoms assessed: nora on ckd, influenza A, decreased po intake Reason for physical therapy: home safety and mobility, therapeutic exercises, restore joint function, gait/transfer training, assess need for DME, ADL training, energy conservation and other MD Overseeing Care: Rashad Lal Homebound: Leaving the home is medically contraindicated at this time without the asist of a device and/or another person due th the listed conditions above and below. Reason homebound: weakness related to hospital stay Homebound supporting statement: patient is geneeralised weak post hospitalization,has multiple comorbidities including nora,dehydration and influenza -need help to go to appointments. Certification: Based on the above findings, I certify that this patient is confined to the home and needs intermittent longterm care, physical therapy and/or speech therapy, or continues to need occupational therapy. The patient is under my care, and I have initiated the establishment of the plan of care. The patient will be followed by a physician who will periodically review the plan of care.
--- NOTE | 2022-01-30 13:01 | P.DS_ITS ---
DS: Providers Provider Date of Service: 01/30/22 Date of admission: 01/28/22 22:55 Primary care physician: Rashad Lal MD DS: Diagnosis Discharge Diagnosis (1) Influenza A: Status: Acute (2) Failure to thrive in adult: Status: Acute (3) NORA (acute kidney injury): Status: Acute DS: Summary Hospital Course Hospital Course: 81 year old male with IDDM with retinopathy/nephropathy, glaucoma, legally blind,? CKD3, CAD s/p CABGx4, Complete heart block s/p pacemaker, HTN, HLD, ? history of prostate cancer,? legally blind, chronic venous stasis, uses walker at home to get around, he lives with his who is presently hospitalized with influenza. Patient was brought in by family? due to failure to thrive, he has not be able to eat much. Sugar was 54 at home and 64 here. He is also positive for influenza with active symptoms, negative covid. Hospital course: Patient was admitted with NORA on CKD, poor oral intake,, influenza A: Started on gentle hydration, encouraged for p.o. intake and also treated with Tamiflu- patient seems to be improved significantly, also seen by PT recommended rehab patient categorically refuses that son is at bedside he also agrees with the patient and does not want him to go to rehab. Patient will be going home with Tamiflu, encouraged for adequate hydration, adjusted lasix to once daily, repeat BMP next week and so far Lasix dosing adjusted to once daily-which can be adjusted back to b.i.d. once sees PCP and get BMP done. Patient says that he already has appointment with the PCP next week-monitor BMP and electrolytes out patiently. Further management outpatient. PT recommended rehab but patient and patient family refusing to go to rehab, we offered home PT but patient family feel comfortable to taking care of him at home and they do not want currently to wait for home PT arrangement-discussed with them in detail and they understand above management and want to take patient home, case management is aware to reach out to them if they need any help. Time Spent with Patient Time attestation: Total time spent providing and/or coordinating discharge services: Discharge coordination time: Greater than 30 minutes Quality: Safe Use of Opioids Does Pt have an Active Cancer Diagnosis on the Problem List?: No Quality: Stroke Does the patient have a stroke diagnosis?: No Physical Exam Vital Signs: Vital Signs: Last Vital Signs Temp 97.9 F 01/30/22 07:43 Pulse 58 01/30/22 07:43 Resp 20 01/30/22 07:43 BP 156/77 H 01/30/22 07:43 Pulse Ox 96 01/30/22 07:43 BMI result Body Mass Index 28.4 Appearance: Alert.? Oriented x3.? Eating better, feels more better. cvs: rrr, [id number] . res: clear to auscultation ,no rhonchii or wheezing abd: no rebound or guarding ,nt, bs present. ext pulses present , no cyanosis ,has b/l leg ch changes . neuro: axo3 , nonfocal. DS: Data Data Completed and Pending Labs on day of discharge: Laboratory Results - last 24 hr 01/29/22 01/29/22 01/29/22 14:37 16:36 19:09 Sodium Potassium Chloride Carbon Dioxide Anion Gap BUN Creatinine Estim Creat Clear Calc Estimated GFR POC Glucose 250 H 230 H 258 H Random Glucose Calcium 01/30/22 01/30/22 01/30/22 02:33 06:09 07:13 Sodium 136 Potassium 3.5 Chloride 101 Carbon Dioxide 27 Anion Gap 12 BUN 34 H Creatinine 1.34 Estim Creat Clear Calc 42.2 Estimated GFR 51 POC Glucose 112 150 H Random Glucose 140 H Calcium 8.7 01/30/22 11:00 Sodium Potassium Chloride Carbon Dioxide Anion Gap BUN Creatinine Estim Creat Clear Calc Estimated GFR POC Glucose 199 H Random Glucose Calcium Additional Comments Additional comments: ?XR/XR chest 1V IMPRESSION: Hypoexpanded with chronic appearing and postoperative changes but no definitive acute airspace disease. Discharge Plan Discharge Patient Disposition: Home Health Service Discharge Diagnosis: influenza A, FTT ,nora Referrals: Rashad Lal MD [Primary Care Provider] - 1 Week Discharge Medications: New oseltamivir 30 mg Capsule 30 mg PO Q12H Qty: 8 0RF Continued Erleada 60 mg Tablet 240 mg PO DAILY@1200 0RF niacin 500 mg tablet 1 tab PO DAILY 0RF potassium chloride 20 mEq tablet extended release 1 tab PO DAILY 0RF Lantus U-100 Insulin 10 units subcut BID 0RF insulin aspart U-100 [Novolog Flexpen U-100 Insulin] 100 unit/mL (3 mL) Insulin Pen 10 unit SUBCUT BID@0730,1630 0RF insulin aspart U-100 [Novolog Flexpen U-100 Insulin] 100 unit/mL (3 mL) Insulin Pen 6 unit SUBCUT DAILY@1130 0RF rosuvastatin 40 mg Tablet 40 mg PO DAILY 0RF amlodipine 10 mg Tablet 10 mg PO DAILY 0RF aspirin [Aspir-81] 81 mg Tablet,Delayed Release (Dr/Ec) 81 mg PO DAILY 0RF bimatoprost 0.01 % Drops 1 drp ophthalmic-Right BEDTIME 0RF brimonidine 0.2 % Drops 1 drp OPHTHALMIC (EYE) TID 0RF Rx Instructions: administer approximately 8 hours apart dorzolamide-timolol 22.3-6.8 mg/mL Drops 1 drp ophthalmic-Right BID 0RF ferrous sulfate 325 mg (65 mg iron) Tablet 325 mg PO DAILY 0RF Changed furosemide 40 mg tablet 1 tab PO DAILY Qty: 0 0RF Discharge Orders: Discharge Order (Routine); Ordered 01/30/22 Ordered By: Homer Martins Diet: advance to usual diet and diabetic diet Activity on Discharge: As tolerated Stand Alone Forms: Patient Portal Discharge page Care Plan Goals: Patient came with NORA on CKD, poor oral intake,, influenza A: Started on gentle hydration, encouraged for p.o. intake and also treated with Tamiflu-patient seems to be improved significantly, also seen by PT recommended rehab patient categorically refuses that son is at bedside he also agrees with the patient and does not want him to go to rehab. Patient will be going home with Tamiflu, encouraged for adequate hydration, adjusted lasix to once daily, repeat BMP next week and so far Lasix dosing adjusted to once daily-which can be adjusted back to b.i.d. once sees PCP and get BMP done. Patient says that he already has appointment with the PCP next week-monitor BMP and electrolytes out patiently. Further management outpatient. Health Concerns: Patient needs to have adequate hydration and and will need consistent encouragement for p.o. intake which is already improving. Complete the Tamiflu course. NORA seems to be improved significantly, monitor BMP outpatient as above. Plan of Treatment: As above. Assessment: As above.
--- NOTE | 2022-01-30 14:00 | MHC.CM.PN ---
PT recommends STR;Patient and Son prefer that Patient go home.MD put in dc order for home WITH services. MULTIPLE referrals to VNAs have been made but as of this time, no VNA has accepted (i.e. out of network with Patient's insurance, out of services area, at capacity, weekend staffing, staffing shortage). DAVON met with Patient, his and his Son and they continue to refuse to consider STR and state that they have adequate support at home ([facility] services for ADL type assistance). DAVON has relayed this information to Attending.
--- NOTE | 2022-01-30 14:49 | MHC.CM.PN ---
DAVON and met with Patient and his Son to confirm that VNA is NOT in place. DAVON explained that if an accepting VNA were to surface then CM would let Patient/family know, but as of this time, Patient will be returning home without VNA. Again, Patient and Son agree with this plan and want to go home today and clearly understand that there is no VNA in place. DAVON and encouraged Patient and Son to see PCP HAMMAD (Son indicated f/u appointment is already scheduled)because PCP's office is able to order VNA as well.
[2022-01-30 14:57] VITALS: BP 126/62; PULSE 51; RESP 20; TEMP 36.1; O2SAT 97
--- NOTE | 2022-01-31 08:12 | MHC.CM.PN ---
[facility] has accepted Patient. Per VNA's request, the face to face and dc summary has been successfully faxed to [phone]. CM spoke with Patient's Padmini and informed her to expect a call from this VNA regarding SOC.
== END 2022-01-30 15:44 | disposition home health service (06) | DRG 194 ==
LOC: HO.ED 22:15 → HO.EDOVER 23:24 → HO.IMC 01-29 14:39
PROVIDERS: Admitting Provider Internal Medicine; Emergency Provider Internal Medicine; PCP Internal Medicine Medical Oncology; Visit Provider Internal Medicine
DX: J10.1 Influenza due to other identified influenza virus with other respiratory manifestations (principal); N17.9 Acute kidney failure, unspecified; H54.8 Legal blindness, as defined in USA; R62.7 Adult failure to thrive; Z68.28 Body mass index [BMI] 28.0-28.9, adult; I12.9 Hypertensive chronic kidney disease with stage 1 through stage 4 chronic kidney disease, or unspecified chronic kidney disease; N18.30 Chronic kidney disease, stage 3 unspecified; E11.22 Type 2 diabetes mellitus with diabetic chronic kidney disease; E11.649 Type 2 diabetes mellitus with hypoglycemia without coma; I25.10 Atherosclerotic heart disease of native coronary artery without angina pectoris; Z20.822 Contact with and (suspected) exposure to COVID-19; Z95.1 Presence of aortocoronary bypass graft; Z95.0 Presence of cardiac pacemaker; Z88.0 Allergy status to penicillin; Z79.4 Long term (current) use of insulin; Z79.899 Other long term (current) drug therapy
CPT/HCPCS: 36415; 71045; 80048; 82947; 85025; 87502; 87635; 92610; 93005; 96360; 97162; 99219; 99285

== ENCOUNTER 2022-02-05 19:26 | Inpatient (IN) | payer MEDICARE, SELFPAY ==
--- NOTE | ~2022-02-05 | XR_ITS ---
EXAMINATION: XR CHEST CLINICAL INFORMATION: Failure to thrive COMPARISON: Chest x-ray 01/28/2022 TECHNIQUE: Frontal portable view of the chest was obtained. 1955 hours FINDINGS: Post median sternotomy. Pacemaker lead in right atrium and right ventricle. Cardiac mediastinal contours are normal. No pulmonary vascular. Lungs normally aerated. No pleural effusion or pneumothorax. Compared to prior chest x-ray there is no change. XR/XR chest 1V IMPRESSION: No acute abnormality of chest.
--- NOTE | ~2022-02-05 | CT_ITS ---
EXAMINATION: CT CHEST, ABDOMEN AND PELVIS WITHOUT CONTRAST. CLINICAL INFORMATION: Dysphagia. COMPARISON: CT abdomen dated from 03/30/2021. TECHNIQUE: Multidetector volumetric imaging was performed from the thoracic inlet through the pubic symphysis without intravenous contrast. Sagittal and coronal reformatted images were obtained on the technologist's workstation. This CT examination was performed using dose optimization techniques as appropriate, variously including the following: *Automated exposure control *Adjustment of mA and/or kV according to patient size (this includes techniques or standardized protocols for targeted exams where dose is matched to indication/reason for exam; i.e. extremities or head) *Use of iterative reconstruction technique DLP: 339 and 796 mGy-cm FINDINGS: CHEST: Lung: There is a background of mild emphysema, and peripheral reticulation with septal thickening. No dense consolidation. The central airways are patent. There are multiple pulmonary nodules, concerning for metastatic disease some of which are (series 7): A 1.2 cm right apical nodule, image 76. A 0.6 cm left apical nodule, image 76. A 0.9 cm right upper lobe nodule, image 96. A 0.9 cm left upper lobe nodule just anterior to the left major fissure, image 113. Mediastinum: The heart is enlarged. There is a left-sided pacer/AICD with leads projecting over the right atrium and right ventricle. Postsurgical changes from prior CABG. Extensive coronary calcifications, and mitral annular calcifications. No pericardial effusion. There is a 1.1 cm cm short axis lower pretracheal lymph node (7:171) and a 0.9 cm short axis subcarinal lymph node (5:26). Atherosclerotic disease of the thoracic aorta which is of normal diameter. Normal appearance of the thyroid gland to the extent seen. Pericardium/Pleura: No pleural effusion or pneumothorax. Chest Wall/Axilla: Left-sided pacer/AICD as above. Asymmetric left gynecomastia. Fairly symmetric subcentimeter axillary lymph nodes, which are likely reactive. ABDOMEN/PELVIS: Liver, Gallbladder, Biliary Tree: There are several new hypodense liver lesions, for instance as identified in the left lobe on image 12 and right lobe on image 13 of series 11. The gallbladder is hydropic with small stones and mild nonspecific pericholecystic fat stranding. There is no significant gallbladder wall thickening. There is no biliary ductal dilatation. Pancreas: The pancreas is atrophic, and there is surrounding peripancreatic free fluid and fat stranding. The main pancreatic duct is nondilated. Spleen: Splenic granulomas are seen. Adrenal Glands: There is increased asymmetric engorgement of the left adrenal gland. Normal appearance of the right adrenal gland. Kidneys and Ureters: There is new moderate left hydroureteronephrosis up to the level of obstructive lymphadenopathy in the left hemipelvis. No nephrolithiasis. There is retroperitoneal fat stranding, greater on the left side. There is also presacral stranding, and small volume of ascites. Bladder: Predominantly anterior urinary bladder wall thickening with mild perivesical fat stranding. Gastrointestinal Tract: The stomach is under distended limiting assessment of wall thickening. There is wall thickening of the duodenal sweep. No evidence of acute diverticulitis or acute colitis. No bowel obstruction. Abdominal Wall: Anasarca. No significant hernia. Lymphovascular Structures: Extensive abdominopelvic lymphadenopathy, many of which demonstrate internal calcifications. For example (series 11): A 2.1 x 1.8 cm periportal lymph node (image 24), previously 1.1 x 1.1 cm. A 1.5 x 1.2 cm pancreaticoduodenal lymph node (image 32), previously 1.1 x 1.1 cm. A conglomerate of left external iliac lymph nodes measuring 3.6 x 3 cm (image 72), previously outside of the [id number]. A left-sided external iliac lymph node measuring 2.8 x 1.9 cm (image 77) disease. A 1.8 x 2 cm right external iliac lymph node (image 69) disease. Pelvic Viscera: Prior prostatectomy. Osseus Structures: Posterior spinal instrumentation with transpedicular screws at L2 and L4. Diffuse osseous metastases, progressed since 2020. Redemonstration of fairly stable pathologic fracture at L3. CT/CT abdomen pelvis wo con IMPRESSION: Complex examination. CHEST: 1. Innumerable pulmonary nodules concerning for metastatic disease. 2. Enlarged lower pretracheal mediastinal lymph node. 3. Asymmetric left gynecomastia. 4. Cardiomegaly with changes from prior CABG and extensive coronary calcifications. ABDOMEN/PELVIS: 1. Worsening abdominopelvic lymphadenopathy, concerning for metastatic disease progression. 2. New liver hypodensities worrisome for metastatic disease. 3. New moderate left hydroureteronephrosis secondary to obstruction from pelvic lymphadenopathy. 4. Asymmetric urinary wall thickening anteriorly with surrounding fat stranding, there is also fat stranding along the retroperitoneum and presacral regions which could represent superimposed infection of the urinary tract. 5. Peripancreatic fat stranding and haziness, correlate with amylase and lipase levels for the presence of acute pancreatitis. There is wall thickening of the duodenum which is likely reactive. Pericholecystic fat stranding is likely as well reactive. 6. Progression of metastatic osseous disease. Stable pathologic compression deformity at L3. 7. Increased asymmetry of the left adrenal gland in which metastatic disease cannot be excluded.
[2022-02-05 19:39] VITALS: BP 118/50; BP 123/69; PULSE 100; PULSE 99; RESP 16; TEMP 36.7; O2SAT 96; O2SAT 97; BMI 31.9
--- NOTE | 2022-02-05 19:42 | ECG_ITS ---
Test Reason : MED CLEARANCE Blood Pressure : / mmHG Vent. Rate : 090 BPM Atrial Rate : 083 BPM P-R Int : 000 ms QRS Dur : 174 ms QT Int : 432 ms P-R-T Axes : 000 -71 109 degrees QTc Int : 528 ms Ventricular-paced rhythm Abnormal ECG When compared with ECG of 28-JAN-2022 21:55, Vent. rate has increased BY 19 BPM Referred By: Violet Renteria Electronically Signed By:John Francis
--- NOTE | 2022-02-05 19:43 | ED.GENADULT ---
HPI - General Adult General Chief complaint: General Medical Stated complaint: burping times 3 days/flu+ Time Seen by Provider: 02/05/22 19:41 Source: patient and EMS Mode of arrival: EMS Limitations: no limitations History of Present Illness HPI narrative: 81 years old male came in for evaluation of possible dehydration. Patient with history of IDDM with retinopathy and neuropathy, glaucoma, legally blind, CKD 3, CAD s/p CABG x4, complete heart block s/p space maker, HTN, HLD, prostate cancer, patient mostly bed/recliner bound at home ambulate at home using a walker lives with his normally needs help with most of the daily activity. Patient was admitted recently for flu and failure to thrive patient claimed ever since he left the hospital been having decrease p.o. intake and poor appetite with increased burping. Related Data Home Medications Medication Instructions Recorded Confirmed Lantus U-100 Insulin 10 units SUBCUT BID 01/28/22 01/29/22 apalutamide 60 mg tablet (Erleada) 240 mg PO DAILY@1200 01/28/22 01/29/22 niacin 500 mg tablet 1 tab PO DAILY 01/28/22 01/28/22 potassium chloride 20 mEq 1 tab PO DAILY 01/28/22 01/28/22 tablet,extended release amlodipine 10 mg tablet 10 mg PO DAILY 01/29/22 01/29/22 aspirin 81 mg tablet,delayed 81 mg PO DAILY 01/29/22 01/29/22 release bimatoprost 0.01 % eye drops 1 drp OPHTHALMIC-RIGHT BEDTIME 01/29/22 01/29/22 brimonidine 0.2 % eye drops 1 drp OPHTHALMIC (EYE) TID 01/29/22 01/29/22 dorzolamide 22.3 mg-timolol 6.8 1 drp OPHTHALMIC-RIGHT BID 01/29/22 01/29/22 mg/mL eye drops ferrous sulfate 325 mg (65 mg 325 mg PO DAILY 01/29/22 01/29/22 iron) tablet insulin aspart U-100 100 unit/mL 6 unit SUBCUT DAILY@1130 01/29/22 01/29/22 (3 mL) subcutaneous pen (Novolog Flexpen U-100 Insulin aspart) insulin aspart U-100 100 unit/mL 10 unit SUBCUT BID@0730,1630 01/29/22 01/29/22 (3 mL) subcutaneous pen (Novolog Flexpen U-100 Insulin aspart) rosuvastatin 40 mg tablet 40 mg PO DAILY 01/29/22 01/29/22 Previous Rx's Medication Instructions Recorded furosemide 40 mg tablet 1 tab PO DAILY #0 tab 01/30/22 oseltamivir 30 mg capsule 30 mg PO Q12H #8 cap 01/30/22 Allergies Allergy/AdvReac Type Severity Reaction Status Date / Time Penicillins [PCN] Allergy Unknown UNKNOWN Verified 02/05/22 19:43 Review of Systems Review of Systems: All other systems are reviewed and are negative Constitutional: Reports as per HPI and Reports no additional constitutional complaints Eyes: Reports as per HPI and Reports no additional eye complaints Reports system reviewed and no additional complaints, except as documented Cardiovascular: Reports as per HPI and Reports no additional cardiovascular complaints Respiratory: Reports as per HPI and Reports no additional respiratory complaints Gastrointestinal: Reports as per HPI and Reports no additional gastrointestinal complaints Genitourinary: Reports no additional female genitourinary complaints Musculoskeletal: Reports no additional musculoskeletal complaints Skin/Breast: Reports system reviewed and no additional complaints, except as docu Psychiatric: Reports no additional psychiatric complaints Endocrine: Reports no additional endocrine complaints Hematologic/Lymphatic: Reports no additional hematologic/lymphatic complaints Allergic/Immunologic: Reports no additional allergic/immunologic complaints Reports system reviewed and no additional complaints, except as documented and Reports Abnormal speech present [facility] Past Medical History Medical History CKD (chronic kidney disease) stage 3, GFR 30-59 ml/min Diabetes Diabetes with retinopathy Glaucoma History of heart block HTN (hypertension) Legally blind Surgical History Status post cardiac pacemaker procedure Social History Social History Household Members: Spouse Housing: Apartment Do you presently have visiting nurse or other home services: Yes Alcohol intake: never Patient Tobacco Use Status: Never used Tobacco Use of substances other than those prescribed or required for medical reasons: No Advance Directives: No Advance Directives Information Provided: No service: Yes Current occupational status: retired Physical Exam ED Vital Signs: Vital Signs - 24 hr 02/05/22 19:39 Temperature 98.0 F Pulse Rate 99 Respiratory Rate 16 Blood Pressure 123/69 Pulse Oximetry 96 BMI result Body Mass Index 31.9 Vital signs have been reviewed as appeared to be correct. Blood pressure normal. Heart rate normal. Respiration rate normal. Temperature normal. Oxygen saturation normal. Appearance: Alert. Oriented X3. No acute distress. Head: Normal external exam. Normocephalic. Atraumatic. No Pyle signs noted. No raccoon eyes noted Eyes: PERRLA. EOMI. Conjunctiva and sclera normal. Eyelids normal. ENT: TM's Normal. Pharynx normal. Uvula midline. Dry mucous membranes. No trismus noted. No drooling noted. No muffled voice noted. Neck: Normal inspection. Neck supple. FROM. No adenopathy. Thyroid Normal. No meningeal signs. No neck mass noted. CVS: Normal heart rate and rhythm. Heart sound normal. No murmurs noted. Pulses normal throughout. Respiratory: No respiratory distress. Painless inspiration. Breath sounds normal. No wheezes/rales/rhonchi noted. Chest nontender. No accessory muscle usage noted or decreased air movement noted. Abdomen: Soft and nontender. Bowel sounds normal in all 4 quadrants. No distention noted. No organomegaly noted. No visible injury noted. Back: No CVA tenderness. Full range of motion noted. Skin: Skin warm and dry. Normal skin color. Normal skin turgor. No rashes/lesions/lacerations noted. Extremities: No lower extremity edema. Extremities exhibit normal range of motion. Extremities nontender. Neuro: Oriented X 3. Course Course Course Narrative: Assessment and plan. 81-year-old male came in from home after been discharged from the hospital with decreased p.o. intake, and possible dehydration. Labs is consistent with acute Marialuisa appears to be pre renal. Patient will be admitted for further IV hydration. Medical Decision Making Lab Data Lab results reviewed: Yes I reviewed the patient's lab results. Result diagrams: 02/05/22 20:04 02/05/22 20:04 Labs: Lab Results 02/05/22 02/05/22 02/05/22 Range/Units 20:04 20:04 20:04 WBC 9.5 (4.8-10.8) X10*3/uL RBC 4.24 L (4.60-5.80) X10*6/uL Hgb 12.6 L (14.0-18.0) g/dl Hct 38.4 L (42.0-52.0) % MCV 90.6 (80.0-98.0) fL MCH 29.7 (27.0-33.0) pg MCHC 32.8 (31.0-36.0) g/dl RDW 14.5 (11.0-16.0) % Plt Count 283 (160-400) X10*3/uL MPV 9.7 (9.4-12.4) fL Immature Gran % (Auto) 0.4 (0.0-0.4) % Neut % (Auto) 76.8 H (45-73) % Lymph % (Auto) 12.1 L (20-40) % Catron % (Auto) 9.8 (2-11) % Eos % (Auto) 0.5 (0-4) % Baso % (Auto) 0.4 (0-2) % Lymph # (Auto) 1.2 (1.2-4.9) X10*3/uL Catron # (Auto) 0.9 (0.1-1.2) X10*3/uL Eos # (Auto) 0.1 (0.0-0.4) X10*3/uL Baso # (Auto) 0.0 (0.0-0.2) X10*3/uL Abs Immat Gran (auto) 0.04 H (0.00-0.03) X10*3/uL Absolute Neuts (auto) 7.3 (2.0-8.3) x10*3/uL Absolute Nucleated RBC 0.000 (0.0-0.012) X10*3/uL Nucleated RBC % (auto) 0.0 (0.0-0.2) /100WBC Sodium 135 (135-145) mmol/L Potassium 4.1 (3.3-5.1) mmol/L Chloride 93 L (96-108) mmol/L Carbon Dioxide 27 (22-29) mmol/L Anion Gap 19 (12-20) BUN 32 H (9-16) mg/dL Creatinine 2.27 H (0.5-1.4) mg/dL Estim Creat Clear Calc 26.3 Estimated GFR 28 Random Glucose 210 H D (60-115) mg/dL Calcium 9.7 D (8.4-10.2) mg/dL Total Bilirubin 0.5 (0.0-1.0) mg/dL Direct Bilirubin 0.3 (0.0-0.5) mg/dL AST 22 (5-37) U/L ALT 12 (0-40) U/L Alkaline Phosphatase 185 H D (39-117) U/L Troponin I High Sens 32.5 (<3.5-35.0) ng/L B-Natriuretic Peptide 249 H (<100) pg/mL Total Protein 7.2 (6.5-8.0) g/dL Albumin 3.5 (3.5-5.0) g/dL Lipase 57 (8-78) U/L Influenza Type A (PCR) (Negative) Influenza Type B (PCR) (Negative) RSV RNA Qual (PCR) (Negative) SARS-CoV-2 RNA (RT-PCR) (Negative) 02/05/22 Range/Units 20:04 WBC (4.8-10.8) X10*3/uL RBC (4.60-5.80) X10*6/uL Hgb (14.0-18.0) g/dl Hct (42.0-52.0) % MCV (80.0-98.0) fL MCH (27.0-33.0) pg MCHC (31.0-36.0) g/dl RDW (11.0-16.0) % Plt Count (160-400) X10*3/uL MPV (9.4-12.4) fL Immature Gran % (Auto) (0.0-0.4) % Neut % (Auto) (45-73) % Lymph % (Auto) (20-40) % Catron % (Auto) (2-11) % Eos % (Auto) (0-4) % Baso % (Auto) (0-2) % Lymph # (Auto) (1.2-4.9) X10*3/uL Catron # (Auto) (0.1-1.2) X10*3/uL Eos # (Auto) (0.0-0.4) X10*3/uL Baso # (Auto) (0.0-0.2) X10*3/uL Abs Immat Gran (auto) (0.00-0.03) X10*3/uL Absolute Neuts (auto) (2.0-8.3) x10*3/uL Absolute Nucleated RBC (0.0-0.012) X10*3/uL Nucleated RBC % (auto) (0.0-0.2) /100WBC Sodium (135-145) mmol/L Potassium (3.3-5.1) mmol/L Chloride (96-108) mmol/L Carbon Dioxide (22-29) mmol/L Anion Gap (12-20) BUN (9-16) mg/dL Creatinine (0.5-1.4) mg/dL Estim Creat Clear Calc Estimated GFR Random Glucose (60-115) mg/dL Calcium (8.4-10.2) mg/dL Total Bilirubin (0.0-1.0) mg/dL Direct Bilirubin (0.0-0.5) mg/dL AST (5-37) U/L ALT (0-40) U/L Alkaline Phosphatase (39-117) U/L Troponin I High Sens (<3.5-35.0) ng/L B-Natriuretic Peptide (<100) pg/mL Total Protein (6.5-8.0) g/dL Albumin (3.5-5.0) g/dL Lipase (8-78) U/L Influenza Type A (PCR) NEGATIVE (Negative) Influenza Type B (PCR) NEGATIVE (Negative) RSV RNA Qual (PCR) NEGATIVE (Negative) SARS-CoV-2 RNA (RT-PCR) NEGATIVE (Negative) Imaging Data Chest x-ray: Attestation: I personally reviewed and interpreted this imaging study as follows: Radiologist's impression: No acute intrathoracic pathology. Discharge Plan Discharge Clinical Impression: MARIALUISA (acute kidney injury), Dehydration Patient Disposition: Admitted As Inpatient Prescriptions: No Action Erleada 60 mg Tablet 240 mg PO DAILY@1200 0RF niacin 500 mg tablet 1 tab PO DAILY 0RF potassium chloride 20 mEq tablet extended release 1 tab PO DAILY 0RF Lantus U-100 Insulin 10 units subcut BID 0RF insulin aspart U-100 [Novolog Flexpen U-100 Insulin] 100 unit/mL (3 mL) Insulin Pen 10 unit SUBCUT BID@0730,1630 0RF insulin aspart U-100 [Novolog Flexpen U-100 Insulin] 100 unit/mL (3 mL) Insulin Pen 6 unit SUBCUT DAILY@1130 0RF rosuvastatin 40 mg Tablet 40 mg PO DAILY 0RF amlodipine 10 mg Tablet 10 mg PO DAILY 0RF aspirin 81 mg Tablet,Delayed Release (Dr/Ec) 81 mg PO DAILY 0RF bimatoprost 0.01 % Drops 1 drp ophthalmic-Right BEDTIME 0RF brimonidine 0.2 % Drops 1 drp OPHTHALMIC (EYE) TID 0RF Rx Instructions: administer approximately 8 hours apart dorzolamide-timolol 22.3-6.8 mg/mL Drops 1 drp ophthalmic-Right BID 0RF ferrous sulfate 325 mg (65 mg iron) Tablet 325 mg PO DAILY 0RF oseltamivir 30 mg Capsule 30 mg PO Q12H Qty: 8 0RF furosemide 40 mg tablet 1 tab PO DAILY Qty: 0 0RF
[2022-02-05 20:12] LABS: MANUAL DIFF FLAG NO
[2022-02-05 20:14] LABS: Basophils Percent Auto 0.4 % (0-2); Eosinophils Absolute Auto 0.1 X10*3/uL (0.0-0.4); Eosinophils Percent Auto 0.5 % (0-4); Hematocrit 38.4 % (42.0-52.0); Hemoglobin 12.6 g/dl (14.0-18.0); Imm Gran Abs Auto 0.04 X10*3/uL (0.00-0.03); Imm Gran Pct Auto 0.4 % (0.0-0.4); Lymphocytes Absolute Auto 1.2 X10*3/uL (1.2-4.9); Lymphocytes Percent Auto 12.1 % (20-40); Mean Corpuscular HGB Conc 32.8 g/dl (31.0-36.0); Mean Corpuscular Hemoglobin 29.7 pg (27.0-33.0); Mean Corpuscular Volume 90.6 fL (80.0-98.0); Mean Platelet Volume 9.7 fL (9.4-12.4); Monocytes Absolute Auto 0.9 X10*3/uL (0.1-1.2); Monocytes Percent Auto 9.8 % (2-11); Neutrophils Absolute Auto 7.3 x10*3/uL (2.0-8.3); Neutrophils Percent Auto 76.8 % (45-73); Platelet Count 283 X10*3/uL (160-400); Red Blood Count 4.24 X10*6/uL (4.60-5.80); Red Cell Distribution Width 14.5 % (11.0-16.0); White Blood Count 9.5 X10*3/uL (4.8-10.8)
[2022-02-05 20:33] LABS: Alanine Aminotransferase 12 U/L (0-40); Albumin Level 3.5 g/dL (3.5-5.0); Alkaline Phosphatase 185 U/L (39-117); Anion Gap 19 (12-20); Aspartate Amino Transferase 22 U/L (5-37); Bilirubin Direct 0.3 mg/dL (0.0-0.5); Bilirubin Total 0.5 mg/dL (0.0-1.0); Blood Urea Nitrogen 32 mg/dL (9-16); Calcium 9.7 mg/dL (8.4-10.2); Carbon Dioxide 27 mmol/L (22-29); Chloride 93 mmol/L (96-108); Creatinine Clr Calc Pharmacy 26.3; Estimated Glomerular Filt Rate 28; Glucose Random 210 mg/dL (60-115); Lipase 57 U/L (8-78); Potassium 4.1 mmol/L (3.3-5.1); Sodium 135 mmol/L (135-145); Total Protein 7.2 g/dL (6.5-8.0)
[2022-02-05 20:37] LABS: B Type Natriuretic Peptide 249 pg/mL (<100); Troponin-I High Sensitivity 32.5 ng/L (<3.5-35.0)
[2022-02-05 20:49] LABS: Influenza A PCR NEGATIVE (Negative); Influenza B PCR NEGATIVE (Negative); Resp Syncy Virus RNA Qual PCR NEGATIVE (Negative); SARS COV2 PCR INHOUSE NEGATIVE (Negative)
[2022-02-05] MEDS: 0.9 % Sodium Chloride 1,000 ML 999 ML IV (21:46)
--- NOTE | 2022-02-05 21:52 | PM.IMHP ---
History of Present Illness Date of Service: 02/05/22 Chief Complaint: cough 81-year-old male with a past medical history of hypertension, hyperlipidemia, diabetes, glaucoma, recent admission to the hospital for influenza; discharged on 01/30/2022; presented to the hospital today with a chief complaint of poor oral intake/ coughing /itching. spoke to the patient and patient's daughter at bedside; Reported that since discharge patient has been not eating well. Patient reports that he has constant burping, and also feels like foot stuck sensation many aids. Denies any pain on swallowing. Since discharge he also having itching all over the body, denies any rash. Reports he has been having dry cough, and this afternoon had a coughing spell ; and also complains of generalized weakness. Subsequently family brought into the hospital for further evaluation. Patient denies any chest pain or palpitations Denies any fever chills or sputum production. denies any urinary symptoms. Review of all other systems is negative except mentioned above ER course: Per ER team patient noted to be dehydrated; on labs noted to have elevated creatinine; admitted to the hospital for further management. [facility] Medical History CKD (chronic kidney disease) stage 3, GFR 30-59 ml/min Diabetes Diabetes with retinopathy Glaucoma History of heart block HTN (hypertension) Legally blind Surgical History Status post cardiac pacemaker procedure Social History Household Members: Spouse Housing: Apartment Do you presently have visiting nurse or other home services: Yes Alcohol intake: never Patient Tobacco Use Status: Never used Tobacco service: Yes Current occupational status: retired Meds Allergies Allergy/AdvReac Type Severity Reaction Status Date / Time Penicillins [PCN] Allergy Unknown UNKNOWN Verified 02/05/22 19:43 Active Medications: Current Medications Diphenhydramine HCl (Diphenhydramine Hcl 50 Mg/Ml Vial) 25 mg IVPUSH Q6H PRN PRN Reason: Itching Sodium Chloride (Ns) 1,000 mls @ 999 mls/hr IV .Q1H1M ONE Stop: 02/05/22 22:20 Last Admin: 02/05/22 21:46 Dose: 999 mls/hr Documented by: Metoclopramide HCl (Metoclopramide Hcl 10 Mg/2 Ml Vial) 5 mg IVPUSH Q6H PRN PRN Reason: Nausea and Vomiting Pharmacy Consult (Consult Rx Perform Med Rec) 1 each MISCELLANE ONCE STA Stop: 02/05/22 21:50 Home Medications Medication Instructions Recorded Confirmed Last Taken Type Lantus U-100 Insulin 10 units SUBCUT BID 01/28/22 02/05/22 02/05/22 History apalutamide 60 mg tablet (Erleada) 240 mg PO DAILY@1200 01/28/22 02/05/22 02/05/22 History niacin 500 mg tablet 1 tab PO DAILY 01/28/22 02/05/22 02/05/22 History potassium chloride 20 mEq 1 tab PO DAILY 01/28/22 02/05/22 02/05/22 History tablet,extended release amlodipine 10 mg tablet 10 mg PO DAILY 01/29/22 02/05/22 02/05/22 History aspirin 81 mg tablet,delayed 81 mg PO DAILY 01/29/22 02/05/22 02/05/22 History release bimatoprost 0.01 % eye drops 1 drp OPHTHALMIC-RIGHT BEDTIME 01/29/22 02/05/22 02/05/22 History brimonidine 0.2 % eye drops 1 drp OPHTHALMIC (EYE) TID 01/29/22 02/05/22 02/05/22 History dorzolamide 22.3 mg-timolol 6.8 1 drp OPHTHALMIC-RIGHT BID 01/29/22 02/05/22 02/05/22 History mg/mL eye drops ferrous sulfate 325 mg (65 mg 325 mg PO DAILY 01/29/22 02/05/22 02/05/22 History iron) tablet insulin aspart U-100 100 unit/mL 6 unit SUBCUT DAILY@1130 01/29/22 02/05/22 02/05/22 History (3 mL) subcutaneous pen (Novolog Flexpen U-100 Insulin aspart) insulin aspart U-100 100 unit/mL 10 unit SUBCUT BID@0730,1630 01/29/22 02/05/22 02/05/22 History (3 mL) subcutaneous pen (Novolog Flexpen U-100 Insulin aspart) rosuvastatin 40 mg tablet 40 mg PO DAILY 01/29/22 02/05/22 02/05/22 History furosemide 40 mg tablet 1 tab PO BID 02/05/22 02/05/22 02/05/22 History Physical Exam Vital Signs and Narrative: Vital Signs: Last Vital Signs Temp 98.0 F 02/05/22 19:39 Pulse 99 02/05/22 19:39 Resp 16 02/05/22 19:39 BP 123/69 02/05/22 19:39 Pulse Ox 96 02/05/22 19:39 BMI result Body Mass Index 31.9 Gen: Appears be in no acute distress HEENT: NCAT, Dry mucosa. Pulmonary: Vesicular breath sounds, fair air entry CVS: Normal S1-S2 Abdomen: BS+, Soft, Nontender Extremities: Warm well perfused Neuro: Alert and awake. Results Labs CBC and Chem 7: 02/06/22 06:53 02/06/22 06:53 Labs: Laboratory Results - last 24 hr 02/05/22 02/05/22 02/05/22 20:04 20:04 20:04 MCV 90.6 MCH 29.7 MCHC 32.8 RDW 14.5 Plt Count 283 MPV 9.7 Immature Gran % (Auto) 0.4 Neut % (Auto) 76.8 H Lymph % (Auto) 12.1 L [place] % (Auto) 9.8 Eos % (Auto) 0.5 Baso % (Auto) 0.4 Lymph # (Auto) 1.2 [place] # (Auto) 0.9 Eos # (Auto) 0.1 Baso # (Auto) 0.0 Abs Immat Gran (auto) 0.04 H Absolute Neuts (auto) 7.3 Absolute Nucleated RBC 0.000 Nucleated RBC % (auto) 0.0 Anion Gap 19 Estim Creat Clear Calc 26.3 Estimated GFR 28 Random Glucose 210 H D Calcium 9.7 D Total Bilirubin 0.5 Direct Bilirubin 0.3 AST 22 ALT 12 Alkaline Phosphatase 185 H D Troponin I High Sens 32.5 B-Natriuretic Peptide 249 H Total Protein 7.2 Albumin 3.5 Lipase 57 Influenza Type A (PCR) Influenza Type B (PCR) RSV RNA Qual (PCR) SARS-CoV-2 RNA (RT-PCR) 02/05/22 20:04 MCV MCH MCHC RDW Plt Count MPV Immature Gran % (Auto) Neut % (Auto) Lymph % (Auto) [place] % (Auto) Eos % (Auto) Baso % (Auto) Lymph # (Auto) [place] # (Auto) Eos # (Auto) Baso # (Auto) Abs Immat Gran (auto) Absolute Neuts (auto) Absolute Nucleated RBC Nucleated RBC % (auto) Anion Gap Estim Creat Clear Calc Estimated GFR Random Glucose Calcium Total Bilirubin Direct Bilirubin AST ALT Alkaline Phosphatase Troponin I High Sens B-Natriuretic Peptide Total Protein Albumin Lipase Influenza Type A (PCR) NEGATIVE Influenza Type B (PCR) NEGATIVE RSV RNA Qual (PCR) NEGATIVE SARS-CoV-2 RNA (RT-PCR) NEGATIVE Assessment and Plan (1) MARIALUISA (acute kidney injury): Status: Acute (2) Dehydration: Status: Acute Plan 81-year-old male with a past medical history of hypertension, hyperlipidemia, diabetes, glaucoma, prostate ca, recent admission to the hospital for influenza; discharged on 01/30/2022; presented to the hospital today with a chief complaint of poor oral intake/ coughing /itching. noted to have following conditions MARIALUISA: Likely prerenal Continue gentle IV fluids Nephrology consult Avoid nephrotoxins Dysphagia: Patient reported foot stuck sensation. Will consult speech and swallow, Gastroenterology for further recommendations. ? gastroparesis: Will obtain GI motility study. Reglan p.r.n. itching: No rash noted. Benadryl p.r.n.. Adult failure to thrive: Patient has poor oral intake question secondary to dysphagia. Will also consult Nutrition for further recommendations. History of diabetes: Insulin sliding scale History of hypertension /hyperlipidemia: Continue home amlodipine/ statin History of glaucoma: Continue home eye drops History of Prostate Cancer : c/w Home Erleada DVT prophylaxis: Subcu heparin Code status: Full code. Confirmed with the patient's family at bedside. Quality Stroke Does the patient have a stroke diagnosis?: No VTE Prior VTE?: No VTE Risk Level:: Medical - moderate - high VTE Device Contraindication: Treatment Not Indicated VTE Drug Contraindication: N/A - Med Ordered
[2022-02-05 22:13] VITALS: BP 115/51; PULSE 75; RESP 12; O2SAT 98
--- NOTE | 2022-02-05 22:14 | PHA.MEDREC ---
Pharmacy Consult ? Medication Reconciliation Pharmacy has completed the medication reconciliation.
[2022-02-06] MEDS: Heparin Sodium,Porcine 5,000 UNIT/ML VIAL 5000 UNIT SUBCUT ×4 (00:35→21:09)
[2022-02-06] MEDS: 0.9 % Sodium Chloride 1,000 ML 75 ML IVCONT ×2 (00:35→13:09)
--- NOTE | 2022-02-06 00:36 | PC.NURSE ---
medicated per provider order, ANNIA anderson running @ 75ml/hr.
[2022-02-06 03:33] VITALS: BP 116/46; PULSE 90; RESP 20; O2SAT 98
[2022-02-06 06:50] LABS: Appearance Urine CLEAR; Color Urine YELLOW; Glucose Urine UA NEG (NEG); Leukocyte Esterase Urine NEG (NEG); Nitrite Urine NEG (NEG); PH 5.5 (5.0-8.0); Specific Gravity - Urine 1.025 (1.005-1.025); UACC Culture Trigger NO; Urine Blood NEG (NEG); Urine Ketones 5 MG/DL (NEG); Urine Protein 1+ MG/DL (NEG-TRACE)
[2022-02-06 06:57] LABS: Bacteria Urine 1+ /LPF; Squamous Epithelial Cell Urine 1+ /LPF
[2022-02-06 07:26] LABS: MANUAL DIFF FLAG NO
[2022-02-06 07:29] LABS: Basophils Percent Auto 0.5 % (0-2); Eosinophils Absolute Auto 0.3 X10*3/uL (0.0-0.4); Eosinophils Percent Auto 3.8 % (0-4); Hematocrit 33.5 % (42.0-52.0); Hemoglobin 11.2 g/dl (14.0-18.0); Imm Gran Abs Auto 0.03 X10*3/uL (0.00-0.03); Imm Gran Pct Auto 0.4 % (0.0-0.4); Lymphocytes Absolute Auto 1.6 X10*3/uL (1.2-4.9); Lymphocytes Percent Auto 21.2 % (20-40); Mean Corpuscular HGB Conc 33.4 g/dl (31.0-36.0); Mean Corpuscular Hemoglobin 30.4 pg (27.0-33.0); Monocytes Absolute Auto 0.9 X10*3/uL (0.1-1.2); Monocytes Percent Auto 12.2 % (2-11); Neutrophils Absolute Auto 4.5 x10*3/uL (2.0-8.3); Neutrophils Percent Auto 61.9 % (45-73); Platelet Count 247 X10*3/uL (160-400); Red Blood Count 3.68 X10*6/uL (4.60-5.80); Red Cell Distribution Width 14.6 % (11.0-16.0); White Blood Count 7.3 X10*3/uL (4.8-10.8)
[2022-02-06 07:48] LABS: Anion Gap 18 (12-20); Blood Urea Nitrogen 27 mg/dL (9-16); Carbon Dioxide 24 mmol/L (22-29); Chloride 101 mmol/L (96-108); Creatinine Clr Calc Pharmacy 32.1; Estimated Glomerular Filt Rate 35; Glucose Random 159 mg/dL (60-115); Sodium 139 mmol/L (135-145)
[2022-02-06 08:25] LABS: Glucose, Whole Blood 143 mg/dL (60-115)
[2022-02-06] MEDS: diphenhydrAMINE HCL 50 MG/ML VIAL 25 MG IVPUSH (08:26)
[2022-02-06 08:28] VITALS: BP 161/64; PULSE 73; RESP 16; O2SAT 96
--- NOTE | 2022-02-06 08:37 | PC.NURSE ---
PT AWAKE AND ALERT. SON AT THE BEDSIDE. PT GIVEN ICE CHIPS FOR DRY MOUTH. HE REMAINS NPO IN THE ED. MEDICATED FOR GENERAL ITCHING. NO INSULIN COVERAGE REQUIRED
--- NOTE | 2022-02-06 11:08 | PC.NURSE ---
SON HAS CALLED AND IS UPSET HIS FATHER REMAINS NPO FOR TESTING -NUC MED AND SPEECH FOR SWALLOWEVAL , HE STATE HIS IS BRINGING HIS FATHER FOOD.
--- NOTE | 2022-02-06 11:23 | PC.NURSE ---
PROVIDER OK PT TO HAVE CLEAR LIQUID DIET. SWALLOW SCREEN PASSED. JELLO AND APPLE JUICE GIVEN
[2022-02-06 12:21] LABS: Glucose, Whole Blood 192 mg/dL (60-115)
--- NOTE | 2022-02-06 13:06 | HO.PM.IMPN ---
Subjective Subjective Date of Service: 02/06/22 Interval History: f/u on MARIALUISA, dedhydration. ? swallowing issues Interval history: renal funciton is better, no apparent trouble swallowing Physical Exam Vital Signs: Vital Signs: Last Vital Signs Temp 98.0 F 02/05/22 19:39 Pulse 73 02/06/22 08:28 Resp 16 02/06/22 08:28 BP 161/64 H 02/06/22 08:28 Pulse Ox 96 02/06/22 08:28 BMI result Body Mass Index 31.9 Const: Other: General: AO X 3, no acute distress Resp: CTA bilateral CVS: S1,S2,RRR GI: +BS, NT, no distention Skin: chronic stasis dermatitis, ,left leg is bigger than the rigght from vein graft long ago Neuro: motor grossly intact Psych: appropriate affect Objective Data Active Medications Acetaminophen (Acetaminophen 325 Mg Tablet) 650 mg PO Q6H PRN PRN Reason: Pain, Mild (Pain Scale 1-3) Benzonatate (Benzonatate 100 Mg Capsule) 100 mg PO TID PRN PRN Reason: Cough Dextrose (Dextrose 50 % 25 Gm/50 Ml Syringe) 25 gm IVPUSH Q15M PRN; Protocol PRN Reason: per Hypoglycemia Standing Ord. Diphenhydramine HCl (Diphenhydramine Hcl 50 Mg/Ml Vial) 25 mg IVPUSH Q6H PRN PRN Reason: Itching Last Admin: 02/06/22 08:26 Dose: 25 mg Documented by: SABINA Glucose (Glucose Gel 15 Gm Gel..Gram.) 15 gm PO Q15M PRN; Protocol PRN Reason: per Hypoglycemia Standing Ord. Heparin Sodium (Porcine) (Heparin Sodium,Porcine 5,000 Unit/Ml Vial) 5,000 unit SUBCUT Q8H [facility] Last Admin: 02/06/22 06:37 Dose: 5,000 unit Documented by: MONSTER Sodium Chloride (Ns) 1,000 mls @ 75 mls/hr IVCONT .[id number] [facility] Last Admin: 02/06/22 00:35 Dose: 75 mls/hr Documented by: EVANGELISTL Insulin Human Lispro (Insulin Lispro 100 Unit/Ml 3 Ml Vial) 0 unit SUBCUT QIDACHS [facility]; Protocol Last Admin: 02/06/22 08:26 Dose: Not Given Documented by: SABINA Non-Admin Reason: No Insulin Coverage Melatonin (Melatonin 3 Mg Tablet) 6 mg PO BEDTIME PRN PRN Reason: Insomnia Metoclopramide HCl (Metoclopramide Hcl 10 Mg/2 Ml Vial) 5 mg IVPUSH Q6H PRN PRN Reason: Nausea and Vomiting Senna (Sennosides 8.6 Mg Tablet) 17.2 mg PO BEDTIME PRN PRN Reason: Constipation Sodium Chloride (0.9 % Sodium Chloride Flush 3 Ml Syringe) 3 ml IVFLUSH QSHIFT ALESSIO Last Admin: 02/06/22 08:26 Dose: Not Given Documented by: SABINA Non-Admin Reason: IV Running Labs CBC & Chem 7: 02/06/22 06:53 02/06/22 06:53 Labs: Laboratory Results - last 24 hr 02/05/22 02/05/22 02/05/22 20:04 20:04 20:04 MCV 90.6 MCH 29.7 MCHC 32.8 RDW 14.5 Plt Count 283 MPV 9.7 Immature Gran % (Auto) 0.4 Neut % (Auto) 76.8 H Lymph % (Auto) 12.1 L [place] % (Auto) 9.8 Eos % (Auto) 0.5 Baso % (Auto) 0.4 Lymph # (Auto) 1.2 [place] # (Auto) 0.9 Eos # (Auto) 0.1 Baso # (Auto) 0.0 Abs Immat Gran (auto) 0.04 H Absolute Neuts (auto) 7.3 Absolute Nucleated RBC 0.000 Nucleated RBC % (auto) 0.0 Anion Gap 19 Estim Creat Clear Calc 26.3 Estimated GFR 28 POC Glucose Random Glucose 210 H D Calcium 9.7 D Total Bilirubin 0.5 Direct Bilirubin 0.3 AST 22 ALT 12 Alkaline Phosphatase 185 H D Troponin I High Sens 32.5 B-Natriuretic Peptide 249 H Total Protein 7.2 Albumin 3.5 Lipase 57 Urine Color Urine Appearance Urine pH Ur Specific [place] Urine Protein Urine Glucose (UA) Urine Ketones Urine Blood Urine Nitrite Ur Leukocyte Esterase Urine RBC Urine WBC Ur Squamous Epith Cells Urine Bacteria Hyaline Casts Influenza Type A (PCR) Influenza Type B (PCR) RSV RNA Qual (PCR) SARS-CoV-2 RNA (RT-PCR) 02/05/22 02/06/22 02/06/22 20:04 06:43 06:53 MCV 91.0 MCH 30.4 MCHC 33.4 RDW 14.6 Plt Count 247 MPV 10.0 Immature Gran % (Auto) 0.4 Neut % (Auto) 61.9 Lymph % (Auto) 21.2 [place] % (Auto) 12.2 H Eos % (Auto) 3.8 Baso % (Auto) 0.5 Lymph # (Auto) 1.6 [place] # (Auto) 0.9 Eos # (Auto) 0.3 Baso # (Auto) 0.0 Abs Immat Gran (auto) 0.03 Absolute Neuts (auto) 4.5 Absolute Nucleated RBC 0.000 Nucleated RBC % (auto) 0.0 Anion Gap Estim Creat Clear Calc Estimated GFR POC Glucose Random Glucose Calcium Total Bilirubin Direct Bilirubin AST ALT Alkaline Phosphatase Troponin I High Sens B-Natriuretic Peptide Total Protein Albumin Lipase Urine Color YELLOW Urine Appearance CLEAR Urine pH 5.5 Ur Specific [place] 1.025 Urine Protein 1+ H Urine Glucose (UA) NEG Urine Ketones 5 Urine Blood NEG Urine Nitrite NEG Ur Leukocyte Esterase NEG Urine RBC 1-4 Urine WBC 1-4 Ur Squamous Epith Cells 1+ Urine Bacteria 1+ Hyaline Casts 1-4 Influenza Type A (PCR) NEGATIVE Influenza Type B (PCR) NEGATIVE RSV RNA Qual (PCR) NEGATIVE SARS-CoV-2 RNA (RT-PCR) NEGATIVE 02/06/22 02/06/22 02/06/22 06:53 08:21 12:11 MCV MCH MCHC RDW Plt Count MPV Immature Gran % (Auto) Neut % (Auto) Lymph % (Auto) [place] % (Auto) Eos % (Auto) Baso % (Auto) Lymph # (Auto) [place] # (Auto) Eos # (Auto) Baso # (Auto) Abs Immat Gran (auto) Absolute Neuts (auto) Absolute Nucleated RBC Nucleated RBC % (auto) Anion Gap 18 Estim Creat Clear Calc 32.1 Estimated GFR 35 POC Glucose 143 H 192 H Random Glucose 159 H Calcium 9.0 D Total Bilirubin Direct Bilirubin AST ALT Alkaline Phosphatase Troponin I High Sens B-Natriuretic Peptide Total Protein Albumin Lipase Urine Color Urine Appearance Urine pH Ur Specific [place] Urine Protein Urine Glucose (UA) Urine Ketones Urine Blood Urine Nitrite Ur Leukocyte Esterase Urine RBC Urine WBC Ur Squamous Epith Cells Urine Bacteria Hyaline Casts Influenza Type A (PCR) Influenza Type B (PCR) RSV RNA Qual (PCR) SARS-CoV-2 RNA (RT-PCR) Assessment and Plan (1) MARIALUISA (acute kidney injury): Status: Acute (2) Dehydration: Status: Acute (3) CKD (chronic kidney disease) stage 3, GFR 30-59 ml/min: Status: Acute Plan 81-year-old male with a past medical history of hypertension, hyperlipidemia, diabetes, glaucoma, recent admission to the hospital for influenza;? discharged on 01/30/2022; presented to the hospital today with a chief complaint of poor oral intake/ coughing /itching.? noted to have following conditions MARIALUISA on CKD 3-- d/t pre renal state, back to baseline with IVF, pending Nephro consult Dysphagia:? Has globus hyerstericus, awaiting GI Eval, seemed to do ok with bed side swallow, so start liquid diet ?astroparesis:? Will obtain GI motility study.? Reglan p.r.n. ?Itching: ? No rash noted.? Benadryl p.r.n.. ? realted to med ,will review meds again ?Adult failure to? thrive:? Patient has poor oral intake question secondary to dysphagia.? Will also consult Nutrition for further recommendations. History of diabetes:? Insulin sliding scale History of hypertension /hyperlipidemia:? Continue home amlodipine/ statin History of glaucoma: Continue home eye drops DVT prophylaxis:? Subcu heparin Code status: Full code.? Confirmed with the patient's family at bedside. Quality Stroke Does the patient have a stroke diagnosis?: No VTE Prior VTE?: No VTE Risk Level:: Medical - moderate - high VTE Device Contraindication: Treatment Not Indicated VTE Drug Contraindication: N/A - Med Ordered
--- NOTE | 2022-02-06 13:22 | PC.NURSE ---
SPOKE WITH PTS SON AND UPDATED ON CARE PLAN. AWAITING LIQUID TRAY FOR LUNCH. POC WAS TAKEN AFTER JELLO AND APPLE JUICE. WILL HOLD INSULIN COVERAGE UNTIL TOLERATING PO INTAKE. PT OFFERS NO COMPLAINTS. HE IS IN A HOSPITAL BED. HE WAS ASSIST OF 2 WITH AMBULATION TO HOSPITAL BED.
--- NOTE | 2022-02-06 13:45 | PM.GICN ---
History of Present Illness Data of Consult Service Date: 02/06/22 Requesting physician: David Riddle Primary Care Provider: Unknown Physician HPI Reason for consult: ?dysphagia ?81-year-old male with a past medical history of hypertension, hyperlipidemia, diabetes, prostate ca, compression fractures, gallstones, CAD s/p CABGx4, Complete heart block s/p pacemaker, and glaucoma, who I am seeing for assessment for ?dysphagia hx from daughter Moon and patient patient was d/c'ed from [facility] 01/30/22 after a bout of influenza. Since then he had been having reduced Po intake with coughing and itching. He has noted increased burping and has sensation of food getting stuck in his throat causing him choke and cough. No odynophagia. Daughter says that he actually had the swallowing problem for 2 weeks before his admission for influenza He has also been having dry cough with weakness and frailty. he has been having unintentional weight loss last few months, he is margarita anti androgen treatment for his prostate ca per daughter he has c/o fullness in epigastrium and hopsitalist was going to order GES but today patient denies this Patient denies any chest pain or palpitations Denies any? fever chills or sputum production.? ?denies any urinary symptoms.? no abdominal pain Labs: acute in chronic CKD, mild raised BNP and alk phos, mild chronic anemia CXR was normal He passed bedside swallow evaluation and is on clear liquid diet Review of Systems Review of Systems: All other systems are reviewed and are negative Constitutional: Reports as per HPI and Reports no additional constitutional complaints Eyes: Reports as per HPI and Reports no additional eye complaints--blind Reports system reviewed and no additional complaints, except as documented Cardiovascular: Reports as per HPI and Reports no additional cardiovascular complaints Respiratory: Reports as per HPI and Reports no additional respiratory complaints Gastrointestinal: Reports as per HPI and Reports no additional gastrointestinal complaints Genitourinary: Reports no additional genitourinary complaints Musculoskeletal: Reports no additional musculoskeletal complaints Skin/Breast: Reports system reviewed and no additional complaints, has chronic left leg swelling and dermatitis Psychiatric: Reports no additional psychiatric complaints Endocrine: Reports no additional endocrine complaints Hematologic/Lymphatic: Reports no additional hematologic/lymphatic complaints Allergic/Immunologic: Reports no additional allergic/immunologic complaints Reports system reviewed and no additional complaints, except as documented and Reports Abnormal speech present [facility] Past Medical History Medical History CKD (chronic kidney disease) stage 3, GFR 30-59 ml/min Diabetes Diabetes with retinopathy Glaucoma History of heart block HTN (hypertension) Legally blind Family History Pertinent family history: no FH of esophgeal cancer Surgical History Surgical History Status post cardiac pacemaker procedure Social History Social History Household Members: Spouse Housing: Apartment Do you presently have visiting nurse or other home services: Yes Alcohol intake: never Patient Tobacco Use Status: Never used Tobacco Use of substances other than those prescribed or required for medical reasons: No Advance Directives: No Advance Directives Information Provided: No service: Yes Current occupational status: retired [employer] Allergies Allergy/AdvReac Type Severity Reaction Status Date / Time Penicillins [PCN] Allergy Unknown UNKNOWN Verified 02/05/22 19:43 Active Medications: Current Medications Acetaminophen (Acetaminophen 325 Mg Tablet) 650 mg PO Q6H PRN PRN Reason: Pain, Mild (Pain Scale 1-3) Benzonatate (Benzonatate 100 Mg Capsule) 100 mg PO TID PRN PRN Reason: Cough Dextrose (Dextrose 50 % 25 Gm/50 Ml Syringe) 25 gm IVPUSH Q15M PRN; Protocol PRN Reason: per Hypoglycemia Standing Ord. Diphenhydramine HCl (Diphenhydramine Hcl 50 Mg/Ml Vial) 25 mg IVPUSH Q6H PRN PRN Reason: Itching Last Admin: 02/06/22 08:26 Dose: 25 mg Documented by: Glucose (Glucose Gel 15 Gm Gel..Gram.) 15 gm PO Q15M PRN; Protocol PRN Reason: per Hypoglycemia Standing Ord. Heparin Sodium (Porcine) (Heparin Sodium,Porcine 5,000 Unit/Ml Vial) 5,000 unit SUBCUT Q8H ALESSIO Last Admin: 02/06/22 06:37 Dose: 5,000 unit Documented by: Sodium Chloride (Ns) 1,000 mls @ 75 mls/hr IVCONT .[id number] ALESSIO Last Admin: 02/06/22 13:09 Dose: 75 mls/hr Documented by: Insulin Human Lispro (Insulin Lispro 100 Unit/Ml 3 Ml Vial) 0 unit SUBCUT QIDACHS [facility], [facility]; Protocol Last Admin: 02/06/22 08:26 Dose: Not Given Documented by: Melatonin (Melatonin 3 Mg Tablet) 6 mg PO BEDTIME PRN PRN Reason: Insomnia Metoclopramide HCl (Metoclopramide Hcl 10 Mg/2 Ml Vial) 5 mg IVPUSH Q6H PRN PRN Reason: Nausea and Vomiting Senna (Sennosides 8.6 Mg Tablet) 17.2 mg PO BEDTIME PRN PRN Reason: Constipation Sodium Chloride (0.9 % Sodium Chloride Flush 3 Ml Syringe) [facility] Admin: 02/06/22 08:26 Dose: Not Given Documented by: Home Medications Medication Instructions Recorded Confirmed Last Taken Type Lantus U-100 Insulin 10 units SUBCUT BID 01/28/22 02/05/22 02/05/22 History apalutamide 60 mg tablet (Erleada) 240 mg PO DAILY@1200 01/28/22 02/05/22 02/05/22 History niacin 500 mg tablet 1 tab PO DAILY 01/28/22 02/05/22 02/05/22 History potassium chloride 20 mEq 1 tab PO DAILY 01/28/22 02/05/22 02/05/22 History tablet,extended release amlodipine 10 mg tablet 10 mg PO DAILY 01/29/22 02/05/22 02/05/22 History aspirin 81 mg tablet,delayed 81 mg PO DAILY 01/29/22 02/05/22 02/05/22 History release bimatoprost 0.01 % eye drops 1 drp OPHTHALMIC-RIGHT BEDTIME 01/29/22 02/05/22 02/05/22 History brimonidine 0.2 % eye drops 1 drp OPHTHALMIC (EYE) TID 01/29/22 02/05/22 02/05/22 History dorzolamide 22.3 mg-timolol 6.8 1 drp OPHTHALMIC-RIGHT BID 01/29/22 02/05/22 02/05/22 History mg/mL eye drops ferrous sulfate 325 mg (65 mg 325 mg PO DAILY 01/29/22 02/05/22 02/05/22 History iron) tablet insulin aspart U-100 100 unit/mL 6 unit SUBCUT DAILY@1130 01/29/22 02/05/22 02/05/22 History (3 mL) subcutaneous pen (Novolog Flexpen U-100 Insulin aspart) insulin aspart U-100 100 unit/mL 10 unit SUBCUT BID@0730,1630 01/29/22 02/05/22 02/05/22 History (3 mL) subcutaneous pen (Novolog Flexpen U-100 Insulin aspart) rosuvastatin 40 mg tablet 40 mg PO DAILY 01/29/22 02/05/22 02/05/22 History furosemide 40 mg tablet 1 tab PO BID 02/05/22 02/05/22 02/05/22 History Physical Exam Vital Signs: Vital Signs: Last Vital Signs Temp 98.0 F 02/05/22 19:39 Pulse 73 02/06/22 08:28 Resp 16 02/06/22 08:28 BP 161/64 H 02/06/22 08:28 Pulse Ox 96 02/06/22 08:28 BMI result Body Mass Index 31.9 EXAM: GENERAL: The patient is frail VITAL SIGNS:see workflow HEENT: Nonicteric sclerae, PERRLA, EOMI. Oropharynx clear. Moist mucous membranes. Conjunctivae appear well perfused. No thyroid mass. CHEST: Chest wall is nontender. HEART: Regular rate and rhythm without murmurs. LUNGS: Clear to auscultation bilaterally. ABDOMEN: Soft, positive bowel sounds, nontender, no organomegaly.no flank tenderness SKIN: No rash, no excessive bruising, petechiae, or purpura. NEUROLOGIC: legally blind, moving all limbs Legs- chronic venous stasis , left leg > right --not new psych -nml affect Results Labs CBC & Chem 7: 02/06/22 06:53 02/06/22 06:53 Labs: Short CBC 02/05/22 02/06/22 Range/Units 20:04 06:53 WBC 9.5 7.3 (4.8-10.8) X10*3/uL Hgb 12.6 L 11.2 L (14.0-18.0) g/dl Hct 38.4 L 33.5 L (42.0-52.0) % Plt Count 283 247 (160-400) X10*3/uL BMP 02/05/22 02/06/22 20:04 06:53 Sodium 135 139 Potassium 4.1 4.0 Chloride 93 L 101 Carbon Dioxide 27 24 BUN 32 H 27 H Creatinine 2.27 H 1.86 H Calcium 9.7 D 9.0 D Liver Function 02/05/22 Range/Units 20:04 Total Bilirubin 0.5 (0.0-1.0) mg/dL Direct Bilirubin 0.3 (0.0-0.5) mg/dL AST 22 (5-37) U/L ALT 12 (0-40) U/L Alkaline Phosphatase 185 H D (39-117) U/L Albumin 3.5 (3.5-5.0) g/dL Urine 02/06/22 Range/Units 06:43 Urine Color YELLOW Urine Appearance CLEAR Urine pH 5.5 (5.0-8.0) Ur Specific [place] 1.025 (1.005-1.025) Urine Protein 1+ H (NEG-TRACE) MG/DL Urine Glucose (UA) NEG (NEG) MG/DL Assessment and Plan (1) Failure to thrive in adult: Status: Acute (2) Dysphagia: Status: Acute Plan 1/ Dysphagia to solids, possibly transfer dysphagia as he has choking and coughing could also be GERD related spasm, may have mechanical cause such as paraesophageal hiatal hernia or extrinsic compression from prostatic mets, vs dysmotility from diabetes, achalasia PLAN: 1/allow clears as doing since seem tolerated 2/ Ct chest to r/o mediastinal lesions, assess for hiatal hernia 3/ modified ba swallow and SALT assessment 4/ if neg then EGD 5/ meantime can use carafate and PPI and see if helps Procedures Date of Service Date of Service: 02/06/22
--- NOTE | 2022-02-06 14:14 | PC.NURSE ---
PT GIVEN CLEAR LIQUID LUNCH TRAY. OFFERS NO ABD PAIN COMPLAINTS.
[2022-02-06 15:31] VITALS: BP 145/73; PULSE 79; RESP 15; TEMP 36.7; O2SAT 98
--- NOTE | 2022-02-06 16:46 | PC.NURSE ---
GI HERE FOR CONSULT
[2022-02-06 17:16] LABS: Glucose, Whole Blood 180 mg/dL (60-115)
[2022-02-06 18:45] VITALS: BP 150/67; PULSE 68; RESP 18; O2SAT 97
[2022-02-06] MEDS: Barium Sulfate Oral (Berry) 450 ML ORAL.SUSP 900 ML PO (19:40)
[2022-02-06 20:11] VITALS: BP 129/61; PULSE 62; RESP 18; TEMP 36.6; O2SAT 95
[2022-02-06 20:25] LABS: Glucose, Whole Blood 149 mg/dL (60-115)
--- NOTE | 2022-02-06 21:22 | PM.EVENT ---
Event Note Date of Service: 02/06/22 Event Note: Metastatic cancer: CT chest abd pelvios showed CHEST: 1.? Innumerable pulmonary nodules concerning for metastatic disease. 2.? Enlarged lower pretracheal mediastinal lymph node. 3.? Asymmetric left gynecomastia. 4.? Cardiomegaly with changes from prior CABG and extensive coronary calcifications. ? ABDOMEN/PELVIS: 1.? Worsening abdominopelvic lymphadenopathy, concerning for metastatic disease progression. 2.? New liver hypodensities worrisome for metastatic disease. 3.? New moderate left hydroureteronephrosis secondary to obstruction from pelvic lymphadenopathy. 4.? Asymmetric urinary wall thickening anteriorly with surrounding fat stranding, there is also fat stranding along the retroperitoneum and presacral regions which could represent superimposed infection of the urinary tract. 5.? Peripancreatic fat stranding and haziness, correlate with amylase and lipase levels for the presence of acute pancreatitis. There is wall thickening of the duodenum which is likely reactive. Pericholecystic fat stranding is likely as well reactive. 6.? Progression of metastatic osseous disease. Stable pathologic compression deformity at L3. 7.? Increased asymmetry of the left adrenal gland in which metastatic disease cannot be excluded. ? Plan: Pt has history of Prostate cancer on ERLEADA follows dr Lal Consulted Oncology, Urology. Gastroenterology consulted. Pt currently denies pain. NPO Gentle IV fluids. UA negative for infection
[2022-02-06] MEDS: Dextrose 5 % and 0.45 % NaCl 1,000 ML 50 ML IVCONT (21:47)
[2022-02-07] VITALS (7 sets, daily range): BP systolic 114–157; BP diastolic 58–75; PULSE 66–94; RESP 16–18; TEMP 36.2–36.7; O2SAT 93–97
[2022-02-07] MEDS: Omeprazole 20 MG CAPSULE.DR PO (05:43)
[2022-02-07] MEDS: Heparin Sodium,Porcine 5,000 UNIT/ML VIAL 5000 UNIT SUBCUT ×3 (05:43→20:38)
[2022-02-07 07:58] LABS: Glucose, Whole Blood 140 mg/dL (60-115)
[2022-02-07] MEDS: Sucralfate 1 GM TABLET PO ×2 (09:36→17:12)
[2022-02-07] MEDS: diphenhydrAMINE HCL 50 MG/ML VIAL 25 MG IVPUSH (09:36)
[2022-02-07] MEDS: 0.9 % Sodium Chloride Flush 3 ML SYRINGE IVFLUSH ×3 (09:36→20:38)
--- NOTE | 2022-02-07 09:58 | P.CNUR_ITS ---
History of Present Illness Consult details Consult date: 02/07/22 Reason for consult: other (hydronephrosis) Review of Systems Review of Systems: Yes all other systems are reviewed and are negative [facility] Past Medical History Medical History CKD (chronic kidney disease) stage 3, GFR 30-59 ml/min Diabetes Diabetes with retinopathy Glaucoma History of heart block HTN (hypertension) Legally blind Surgical History Surgical History Status post cardiac pacemaker procedure Social History Social History Household Members: Spouse Housing: Apartment Do you presently have visiting nurse or other home services: Yes Alcohol intake: never Patient Tobacco Use Status: Never used Tobacco service: Yes Current occupational status: retired Meds Allergies Allergy/AdvReac Type Severity Reaction Status Date / Time Penicillins [PCN] Allergy Unknown UNKNOWN Verified 02/05/22 19:43 Active Medications: Current Medications Acetaminophen (Acetaminophen 325 Mg Tablet) 650 mg PO Q6H PRN PRN Reason: Pain, Mild (Pain Scale 1-3) Benzonatate (Benzonatate 100 Mg Capsule) 100 mg PO TID PRN PRN Reason: Cough Dextrose (Dextrose 50 % 25 Gm/50 Ml Syringe) 25 gm IVPUSH Q15M PRN; Protocol PRN Reason: per Hypoglycemia Standing Ord. Diphenhydramine HCl (Diphenhydramine Hcl 50 Mg/Ml Vial) 25 mg IVPUSH Q6H PRN PRN Reason: Itching Last Admin: 02/07/22 09:36 Dose: 25 mg Documented by: Glucose (Glucose Gel 15 Gm Gel..Gram.) 15 gm PO Q15M PRN; Protocol PRN Reason: per Hypoglycemia Standing Ord. Heparin Sodium (Porcine) (Heparin Sodium,Porcine 5,000 Unit/Ml Vial) 5,000 unit SUBCUT Q8H ALESSIO Last Admin: 02/07/22 05:43 Dose: 5,000 unit Documented by: Hydromorphone HCl (Hydromorphone Hcl 1 Mg/Ml Syringe) 0.6 mg IVPUSH Q4H PRN; Protocol PRN Reason: Breakthrough Pain Dextrose/Sodium Chloride (D51/2ns) 1,000 mls @ 50 mls/hr IVCONT .Q20H [facility] Last Admin: 02/06/22 21:47 Dose: 50 mls/hr Documented by: Insulin Human Lispro (Insulin Lispro 100 Unit/Ml 3 Ml Vial) 0 unit SUBCUT QIDACHS [facility]; Protocol Last Admin: 02/07/22 08:11 Dose: Not Given Documented by: Melatonin (Melatonin 3 Mg Tablet) 6 mg PO BEDTIME PRN PRN Reason: Insomnia Metoclopramide HCl (Metoclopramide Hcl 10 Mg/2 Ml Vial) 5 mg IVPUSH Q6H PRN PRN Reason: Nausea and Vomiting Omeprazole (Omeprazole 20 Mg Capsule.Dr) 20 mg PO BID@0630,1630 [facility] Last Admin: 02/07/22 05:43 Dose: 20 mg Documented by: Senna (Sennosides 8.6 Mg Tablet) 17.2 mg PO BEDTIME PRN PRN Reason: Constipation Sodium Chloride (0.9 % Sodium Chloride Flush 3 Ml Syringe) 3 ml IVFLUSH QSHIFT [facility] Last Admin: 02/07/22 09:36 Dose: 3 ml Documented by: Sucralfate (Sucralfate 1 Gm Tablet) 1 gm PO BIDAC [facility] Last Admin: 02/07/22 09:36 Dose: 1 gm Documented by: Home Medications Medication Instructions Recorded Confirmed Last Taken Type Lantus U-100 Insulin 10 units SUBCUT BID 01/28/22 02/05/22 02/05/22 History apalutamide 60 mg tablet (Erleada) 240 mg PO DAILY@1200 01/28/22 02/05/22 02/05/22 History niacin 500 mg tablet 1 tab PO DAILY 01/28/22 02/05/22 02/05/22 History potassium chloride 20 mEq 1 tab PO DAILY 01/28/22 02/05/22 02/05/22 History tablet,extended release amlodipine 10 mg tablet 10 mg PO DAILY 01/29/22 02/05/22 02/05/22 History aspirin 81 mg tablet,delayed 81 mg PO DAILY 01/29/22 02/05/22 02/05/22 History release bimatoprost 0.01 % eye drops 1 drp OPHTHALMIC-RIGHT BEDTIME 01/29/22 02/05/22 02/05/22 History brimonidine 0.2 % eye drops 1 drp OPHTHALMIC (EYE) TID 01/29/22 02/05/22 02/05/22 History dorzolamide 22.3 mg-timolol 6.8 1 drp OPHTHALMIC-RIGHT BID 01/29/22 02/05/22 02/05/22 History mg/mL eye drops ferrous sulfate 325 mg (65 mg 325 mg PO DAILY 01/29/22 02/05/22 02/05/22 History iron) tablet insulin aspart U-100 100 unit/mL 6 unit SUBCUT DAILY@1130 01/29/22 02/05/22 02/05/22 History (3 mL) subcutaneous pen (Novolog Flexpen U-100 Insulin aspart) insulin aspart U-100 100 unit/mL 10 unit SUBCUT BID@0730,1630 01/29/22 02/05/22 02/05/22 History (3 mL) subcutaneous pen (Novolog Flexpen U-100 Insulin aspart) rosuvastatin 40 mg tablet 40 mg PO DAILY 01/29/22 02/05/22 02/05/22 History furosemide 40 mg tablet 1 tab PO BID 02/05/22 02/05/22 02/05/22 History Physical Exam Vital Signs: Vital Signs: Last Vital Signs Temp 97.5 F 02/07/22 07:29 Pulse 66 02/07/22 07:29 Resp 18 02/07/22 07:29 BP 136/65 02/07/22 07:29 Pulse Ox 96 02/07/22 07:29 BMI result Body Mass Index 31.9 Neck: Neck: Yes normal visual inspection Chest: Chest palpation & inspection: normal inspection of the chest Resp: Effort & Inspection: normal respiratory effort Cardio: Rate: regular rate Rhythm: regular rhythm Skin: General skin exam: no rashes or lesions noted Results Labs Result diagrams: 02/06/22 06:53 02/06/22 06:53 Labs: Abnormal lab results 02/06/22 02/06/22 02/06/22 Range/Units 12:11 17:12 20:20 POC Glucose 192 H 180 H 149 H (60-115) mg/dL 02/07/22 Range/Units 07:33 POC Glucose 140 H (60-115) mg/dL Urine 02/06/22 Range/Units 06:43 Urine Color YELLOW Urine Appearance CLEAR Urine pH 5.5 (5.0-8.0) Ur Specific [place] 1.025 (1.005-1.025) Urine Protein 1+ H (NEG-TRACE) MG/DL Urine Glucose (UA) NEG (NEG) MG/DL All other labs normal. Assessment and Plan (1) Hydronephrosis: Status: Acute Plan hydro most likey secondaary to vignesh enlargement, if cr warrents intervention then percutaneous nephrostomy tube should be placed, thank you Procedures Date of Service Date of Service: 02/07/22
--- NOTE | 2022-02-07 10:23 | P.PNIM_ITS ---
Subjective Subjective Date of Service: 02/07/22 Interval History: f/u on MARIALUISA, dedhydration. ? swallowing issues Interval history: renal funciton is better, no apparent trouble swallowing, CT of abdomen and chest showed diffuse metastic disease Review of Systems no abd pain no n/v, Physical Exam Vital Signs: Vital Signs: Last Vital Signs Temp 97.5 F 02/07/22 07:29 Pulse 66 02/07/22 07:29 Resp 18 02/07/22 07:29 BP 136/65 02/07/22 07:29 Pulse Ox 96 02/07/22 07:29 BMI result Body Mass Index 31.9 Const: Other: General: AO X 3, no acute distress Resp: CTA bilateral CVS: S1,S2,RRR GI: +BS, NT, no distention Skin: chronic stasis dermatitis, ,left leg is bigger than the rigght from vein graft long ago Neuro: motor grossly intact Psych: appropriate affect Objective Data Active Medications Acetaminophen (Acetaminophen 325 Mg Tablet) 650 mg PO Q6H PRN PRN Reason: Pain, Mild (Pain Scale 1-3) Amlodipine Besylate (Amlodipine Besylate 10 Mg Tablet) 10 mg PO DAILY [facility]; Protocol Aspirin (Aspirin Enteric Coated 81 Mg Tablet.Dr) 81 mg PO DAILY [facility] Benzonatate (Benzonatate 100 Mg Capsule) 100 mg PO TID PRN PRN Reason: Cough Brimonidine Tartrate (Brimonidine Tartrate 0.2% Oph 5 Ml Bottle) 1 drop EYE- BOTH TID ALESSIO Dextrose (Dextrose 50 % 25 Gm/50 Ml Syringe) 25 gm IVPUSH Q15M PRN; Protocol PRN Reason: per Hypoglycemia Standing Ord. Diphenhydramine HCl (Diphenhydramine Hcl 50 Mg/Ml Vial) 25 mg IVPUSH Q6H PRN PRN Reason: Itching Last Admin: 02/07/22 09:36 Dose: 25 mg Documented by: FLORENCIA Dorzolamide/Timolol (Dorzolamide/Timolo 2.23%/0.68% 10 Ml Drbtl) 1 drop EYE- RIGHT BID ALESSIO Furosemide (Furosemide 40 Mg Tablet) 40 mg PO BID [facility]; Protocol Glucose (Glucose Gel 15 Gm Gel..Gram.) 15 gm PO Q15M PRN; Protocol PRN Reason: per Hypoglycemia Standing Ord. Heparin Sodium (Porcine) (Heparin Sodium,Porcine 5,000 Unit/Ml Vial) 5,000 unit SUBCUT Q8H [facility] Last Admin: 02/07/22 05:43 Dose: 5,000 unit Documented by: PIA Hydromorphone HCl (Hydromorphone Hcl 1 Mg/Ml Syringe) 0.6 mg IVPUSH Q4H PRN; Protocol PRN Reason: Breakthrough Pain Dextrose/Sodium Chloride (D51/2ns) 1,000 mls @ 50 mls/hr IVCONT .Q20H [facility] Last Admin: 02/06/22 21:47 Dose: 50 mls/hr Documented by: PIA Insulin Human Lispro (Insulin Lispro 100 Unit/Ml 3 Ml Vial) 0 unit SUBCUT QIDACHS [facility]; Protocol Last Admin: 02/07/22 08:11 Dose: Not Given Documented by: FLORENCIA Non-Admin Reason: No Insulin Coverage Melatonin (Melatonin 3 Mg Tablet) 6 mg PO BEDTIME PRN PRN Reason: Insomnia Metoclopramide HCl (Metoclopramide Hcl 10 Mg/2 Ml Vial) 5 mg IVPUSH Q6H PRN PRN Reason: Nausea and Vomiting Non-Formulary Medication (Apalutamide [Erleada]) 240 mg PO DAILY@1200 [facility] Non-Formulary Medication (Bimatoprost) 1 drop EYE-RIGHT BEDTIME [facility] Non-Formulary Medication (Ferrous Sulfate) 325 mg PO DAILY [facility] Non-Formulary Medication (Insulin Aspart U-100 [Novolog Flexpen U-100 Insulin]) 10 unit SUBCUT BID@0730,1630 [facility] Non-Formulary Medication (Lantus U-100 Insulin) 10 units SUBCUT BID [facility] Non-Formulary Medication (Niacin) 1 tab PO DAILY [facility] Non-Formulary Medication (Rosuvastatin) 40 mg PO DAILY [facility] Omeprazole (Omeprazole 20 Mg Capsule.Dr) 20 mg PO BID@0630,1630 [facility] Last Admin: 02/07/22 05:43 Dose: 20 mg Documented by: PIA Potassium Chloride (Potassium Chloride Er 20 Meq Tab.Er.Prt) 20 meq PO DAILY [facility] Senna (Sennosides 8.6 Mg Tablet) 17.2 mg PO BEDTIME PRN PRN Reason: Constipation Sodium Chloride (0.9 % Sodium Chloride Flush 3 Ml Syringe) 3 ml IVFLUSH QSHIFT [facility] Last Admin: 02/07/22 09:36 Dose: 3 ml Documented by: FLORENCIA Sucralfate (Sucralfate 1 Gm Tablet) 1 gm PO BIDAC [facility] Last Admin: 02/07/22 09:36 Dose: 1 gm Documented by: FLORENCIA Labs CBC & Chem 7: 02/06/22 06:53 02/06/22 06:53 Labs: Laboratory Results - last 24 hr 02/06/22 02/06/22 02/06/22 12:11 17:12 20:20 POC Glucose 192 H 180 H 149 H 02/07/22 07:33 POC Glucose 140 H Assessment and Plan (1) MARIALUISA (acute kidney injury): Status: Acute (2) Dehydration: Status: Acute (3) CKD (chronic kidney disease) stage 3, GFR 30-59 ml/min: Status: Acute Plan 81-year-old male with a past medical history of hypertension, hyperlipidemia, diabetes, glaucoma, recent admission to the hospital for influenza;? discharged on 01/30/2022; presented to the hospital today with a chief complaint of poor oral intake/ coughing /itching.? noted to have following conditions MARIALUISA on CKD 3-- d/t pre renal state, back to baseline with IVF, neurology foll owing Dysphagia:? Has globus hyerstericus, GI might do EGD ?gastroparesis:? Motility study on hold now ?Itching: ? No rash noted.? Benadryl p.r.n.. ? realted to med ,will review meds again ?Adult failure to? thrive:? Patient has poor oral intake question secondary to dysphagia.? Will also consult Nutrition for further recommendations. History of diabetes:? Lantus and SSI History of hypertension /hyperlipidemia:? Continue home amlodipine/ statin History of glaucoma: Continue home eye drops Hydronephrosis--seen by Uro and if renal function worse should have Percut nephrostomy tube Metastatic cancer from prostate CA--oncology consult, will have family discussion for possible hospice DVT prophylaxis:? Subcu heparin Code status: Full code.? Confirmed with the patient's family at bedside. Quality Stroke Does the patient have a stroke diagnosis?: No VTE Prior VTE?: No VTE Risk Level:: Medical - moderate - high VTE Device Contraindication: Treatment Not Indicated VTE Drug Contraindication: N/A - Med Ordered
[2022-02-07 11:39] LABS: Anion Gap 13 (12-20); Blood Urea Nitrogen 17 mg/dL (9-16); Calcium 8.3 mg/dL (8.4-10.2); Carbon Dioxide 24 mmol/L (22-29); Chloride 102 mmol/L (96-108); Creatinine Clr Calc Pharmacy 40.6; Estimated Glomerular Filt Rate 46; Glucose Random 266 mg/dL (60-115); Potassium 3.6 mmol/L (3.3-5.1); Sodium 135 mmol/L (135-145)
[2022-02-07 12:01] LABS: Glucose, Whole Blood 257 mg/dL (60-115)
[2022-02-07] MEDS: Insulin Glargine,Hum.rec.anlog 100 UNIT/ML 10 ML VIAL 10 UNIT SUBCUT ×2 (12:45→21:16)
[2022-02-07] MEDS: Insulin Lispro 100 UNIT/ML 3 ML VIAL SUBCUT ×2 (12:45→17:13)
[2022-02-07] MEDS: Furosemide 40 MG TABLET PO ×2 (12:46→20:38)
[2022-02-07] MEDS: Aspirin Enteric Coated 81 MG TABLET.DR PO (12:47)
[2022-02-07] MEDS: Ferrous Sulfate 324 MG TABLET.DR PO (12:47)
[2022-02-07] MEDS: amLODIPine Besylate 10 MG TABLET PO (12:47)
[2022-02-07] MEDS: Potassium Chloride ER 20 MEQ TAB.ER.PRT PO (12:47)
[2022-02-07] MEDS: Brimonidine Tartrate 0.2% Oph 5 ML BOTTLE 1 DROP EYE-BOTH ×2 (15:46→20:38)
[2022-02-07 16:33] LABS: Glucose, Whole Blood 167 mg/dL (60-115)
[2022-02-07] MEDS: Omeprazole 40 MG CAPSULE.DR PO (17:12)
[2022-02-07] MEDS: Dextrose 5 % and 0.45 % NaCl 1,000 ML 50 ML IVCONT (17:13)
--- NOTE | 2022-02-07 17:31 | P.PNNP_ITS ---
Subjective Subjective Date of Service: 02/07/22 Interval history: Seen and examined, events noted Physical Exam Vital Signs: Vital Signs: Last Vital Signs Temp 97.5 F 02/07/22 15:37 Pulse 94 02/07/22 15:37 Resp 18 02/07/22 15:37 BP 125/70 02/07/22 15:37 Pulse Ox 93 02/07/22 15:37 BMI result Body Mass Index 31.9 Const: Other: General: AO X 3, no acute distress Resp: CTA bilateral CVS: S1,S2,RRR GI: +BS, NT, no distention Skin: chronic stasis dermatitis, ,left leg is bigger than the rigght from vein graft long ago Neuro: motor grossly intact Psych: appropriate affect Neck: Neck: Yes normal visual inspection Chest: Chest palpation & inspection: normal inspection of the chest Resp: Effort & Inspection: normal respiratory effort Cardio: Rate: regular rate Rhythm: regular rhythm Skin: General skin exam: no rashes or lesions noted Objective Data Labs CBC & Chem 7: 02/06/22 06:53 02/07/22 10:55 Labs: Laboratory Results - last 24 hr 02/06/22 02/07/22 02/07/22 20:20 07:33 10:55 Sodium 135 Potassium 3.6 Chloride 102 Carbon Dioxide 24 Anion Gap 13 BUN 17 H Creatinine 1.47 H Estim Creat Clear Calc 40.6 Estimated GFR 46 POC Glucose 149 H 140 H Random Glucose 266 H D Calcium 8.3 L D 02/07/22 02/07/22 11:55 16:19 Sodium Potassium Chloride Carbon Dioxide Anion Gap BUN Creatinine Estim Creat Clear Calc Estimated GFR POC Glucose 257 H 167 H Random Glucose Calcium Procedures Date of Service Date of Service: 02/07/22 Assessment & Plan Assessment and plan (1) MARIALUISA (acute kidney injury): Status: Acute (2) Dehydration: Status: Acute (3) CKD (chronic kidney disease) stage 3, GFR 30-59 ml/min: Status: Acute Plan 1. MARIALUISA: c/w dehydrationresolvinf w IVF 2. CKD 3 3. L [place] 4. Prostate Ca 5. GI sxms PLAN: contIVF, urol evalof hydro, avoid Ntoxins Time Spent With Patient Time: Total time spent is greater than 50% in coordination of care (as documented) at patient's floor/unit and/or counseling patient: Progress Note: Quality Stroke Does the patient have a stroke diagnosis?: No
[2022-02-07] MEDS: Atorvastatin Calcium 80 MG TABLET PO (20:38)
[2022-02-07] MEDS: Dorzolamide/Timolo 2.23%/0.68% 10 ML DRBTL 1 DROP EYE-RIGHT (20:38)
[2022-02-07 21:08] LABS: Glucose, Whole Blood 295 mg/dL (60-115)
[2022-02-08 03:51] VITALS: BP 148/73; PULSE 86; RESP 18; TEMP 36.1; O2SAT 95
[2022-02-08] MEDS: Omeprazole 40 MG CAPSULE.DR PO ×2 (05:35→15:32)
[2022-02-08] MEDS: Heparin Sodium,Porcine 5,000 UNIT/ML VIAL 5000 UNIT SUBCUT ×3 (05:35→20:41)
[2022-02-08 07:41] LABS: Glucose, Whole Blood 164 mg/dL (60-115)
[2022-02-08 08:00] VITALS: BP 143/71; PULSE 58; RESP 17; TEMP 36.1; O2SAT 99
[2022-02-08] MEDS: Sucralfate 1 GM TABLET PO ×2 (08:07→15:32)
[2022-02-08] MEDS: 0.9 % Sodium Chloride Flush 3 ML SYRINGE IVFLUSH (08:08)
[2022-02-08] MEDS: Potassium Chloride ER 20 MEQ TAB.ER.PRT PO (08:08)
[2022-02-08] MEDS: amLODIPine Besylate 10 MG TABLET PO (08:08)
[2022-02-08] MEDS: Ferrous Sulfate 324 MG TABLET.DR PO (08:08)
[2022-02-08] MEDS: Furosemide 40 MG TABLET PO ×2 (08:08→20:40)
[2022-02-08] MEDS: Aspirin Enteric Coated 81 MG TABLET.DR PO (08:08)
[2022-02-08] MEDS: Insulin Lispro 100 UNIT/ML 3 ML VIAL SUBCUT ×3 (08:09→17:22)
[2022-02-08] MEDS: Insulin Glargine,Hum.rec.anlog 100 UNIT/ML 10 ML VIAL 10 UNIT SUBCUT ×2 (08:09→20:42)
[2022-02-08] MEDS: Brimonidine Tartrate 0.2% Oph 5 ML BOTTLE 1 DROP EYE-BOTH ×3 (08:18→20:48)
[2022-02-08] MEDS: Dorzolamide/Timolo 2.23%/0.68% 10 ML DRBTL 1 DROP EYE-RIGHT ×2 (08:19→20:48)
--- NOTE | 2022-02-08 09:16 | HO.PM.IMPN ---
Subjective Subjective Date of Service: 02/08/22 Interval History: f/u on MARIALUISA, dedhydration. ? swallowing issues Interval history: He is feeling better, no sob , no trouble swallowing ate meals yesterday Review of Systems no abd pain no n/v, Physical Exam Vital Signs: Vital Signs: Last Vital Signs Temp 96.9 F 02/08/22 08:00 Pulse 58 02/08/22 08:00 Resp 17 02/08/22 08:00 BP 143/71 H 02/08/22 08:00 Pulse Ox 99 02/08/22 08:00 BMI result Body Mass Index 31.9 Const: Other: General: AO X 3, no acute distress Resp: CTA bilateral CVS: S1,S2,RRR GI: +BS, NT, no distention Skin: chronic stasis dermatitis, ,left leg is bigger than the rigght from vein graft long ago Neuro: motor grossly intact Psych: appropriate affect Objective Data Active Medications Acetaminophen (Acetaminophen 325 Mg Tablet) 650 mg PO Q6H PRN PRN Reason: Pain, Mild (Pain Scale 1-3) Amlodipine Besylate (Amlodipine Besylate 10 Mg Tablet) 10 mg PO DAILY [facility]; Protocol Last Admin: 02/08/22 08:08 Dose: 10 mg Documented by: MIKE Aspirin (Aspirin Enteric Coated 81 Mg Tablet.) 81 mg PO DAILY [facility] Last Admin: 02/08/22 08:08 Dose: 81 mg Documented by: MIKE Atorvastatin Calcium (Atorvastatin Calcium 80 Mg Tablet) 80 mg PO BEDTIME [facility] Last Admin: 02/07/22 20:38 Dose: 80 mg Documented by: MIKE Benzonatate (Benzonatate 100 Mg Capsule) 100 mg PO TID PRN PRN Reason: Cough Brimonidine Tartrate (Brimonidine Tartrate 0.2% Oph 5 Ml Bottle) 1 drop EYE-BOTH TID [facility] Last Admin: 02/08/22 08:18 Dose: 1 drop Documented by: MIKE Dextrose (Dextrose 50 % 25 Gm/50 Ml Syringe) 25 gm IVPUSH Q15M PRN; Protocol PRN Reason: per Hypoglycemia Standing Ord. Diphenhydramine HCl (Diphenhydramine Hcl 50 Mg/Ml Vial) 25 mg IVPUSH Q6H PRN PRN Reason: Itching Last Admin: 02/07/22 09:36 Dose: 25 mg Documented by: FLORENCIA Dorzolamide/Timolol (Dorzolamide/Timolo 2.23%/0.68% 10 Ml Drbtl) 1 drop EYE-RIGHT BID [facility] Last Admin: 02/08/22 08:19 Dose: 1 drop Documented by: MIKE Ferrous Sulfate (Ferrous Sulfate 324 Mg Tablet.Dr) 324 mg PO DAILY [facility] Last Admin: 02/08/22 08:08 Dose: 324 mg Documented by: MIKE Furosemide (Furosemide 40 Mg Tablet) 40 mg PO BID [facility]; Protocol Last Admin: 02/08/22 08:08 Dose: 40 mg Documented by: MIKE Glucose (Glucose Gel 15 Gm Gel..Gram.) 15 gm PO Q15M PRN; Protocol PRN Reason: per Hypoglycemia Standing Ord. Heparin Sodium (Porcine) (Heparin Sodium,Porcine 5,000 Unit/Ml Vial) 5,000 unit SUBCUT Q8H [facility] Last Admin: 02/08/22 05:35 Dose: 5,000 unit Documented by: MIKE Hydromorphone HCl (Hydromorphone Hcl 1 Mg/Ml Syringe) 0.6 mg IVPUSH Q4H PRN; Protocol PRN Reason: Breakthrough Pain Dextrose/Sodium Chloride (D51/2ns) 1,000 mls @ 50 mls/hr IVCONT .Q20H [facility] Last Admin: 02/07/22 17:13 Dose: 50 mls/hr Documented by: FLORENCIA Insulin Glargine (Insulin Glargine,Hum.Rec.Anlog 100 Unit/Ml 10 Ml Vial) 10 unit SUBCUT BID [facility] Last Admin: 02/08/22 08:09 Dose: 10 unit Documented by: MIKE Insulin Human Lispro (Insulin Lispro 100 Unit/Ml 3 Ml Vial) 5 unit SUBCUT TIDAC [facility] Last Admin: 02/08/22 08:09 Dose: 5 unit Documented by: MIKE Melatonin (Melatonin 3 Mg Tablet) 6 mg PO BEDTIME PRN PRN Reason: Insomnia Metoclopramide HCl (Metoclopramide Hcl 10 Mg/2 Ml Vial) 5 mg IVPUSH Q6H PRN PRN Reason: Nausea and Vomiting Patient Own Med ( Apalutamide [Erleada ] 60 Mg Tablet) 240 mg PO DAILY@1200 [facility] Last Admin: 02/07/22 15:46 Dose: 240 mg Documented by: FLORENCIA Omeprazole (Omeprazole 40 Mg Capsule.) 40 mg PO BID@0630,1630 [facility] Last Admin: 02/08/22 05:35 Dose: 40 mg Documented by: MIKE Potassium Chloride (Potassium Chloride Er 20 Meq Tab.Er.Prt) 20 meq PO DAILY [facility] Last Admin: 02/08/22 08:08 Dose: 20 meq Documented by: ANTVINCE Senna (Sennosides 8.6 Mg Tablet) 17.2 mg PO BEDTIME PRN PRN Reason: Constipation Sodium Chloride (0.9 % Sodium Chloride Flush 3 Ml Syringe) 3 ml IVFLUSH QSHIFT [facility] Last Admin: 02/08/22 08:08 Dose: 3 ml Documented by: MIKE Sucralfate (Sucralfate 1 Gm Tablet) 1 gm PO BIDAC [facility] Last Admin: 02/08/22 08:07 Dose: 1 gm Documented by: MIKE Labs CBC & Chem 7: 02/06/22 06:53 02/07/22 10:55 Labs: Laboratory Results - last 24 hr 02/07/22 02/07/22 02/07/22 10:55 11:55 16:19 Anion Gap 13 Estim Creat Clear Calc 40.6 Estimated GFR 46 POC Glucose 257 H 167 H Random Glucose 266 H D Calcium 8.3 L D 02/07/22 02/08/22 20:57 07:37 Anion Gap Estim Creat Clear Calc Estimated GFR POC Glucose 295 H 164 H Random Glucose Calcium Assessment and Plan (1) MARIALUISA (acute kidney injury): Status: Acute (2) Dehydration: Status: Acute (3) CKD (chronic kidney disease) stage 3, GFR 30-59 ml/min: Status: Acute Plan 81-year-old male with a past medical history of hypertension, hyperlipidemia, diabetes, glaucoma, recent admission to the hospital for influenza;? discharged on 01/30/2022; presented to the hospital today with a chief complaint of poor oral intake/ coughing /itching.? noted to have following conditions MARIALUISA on CKD 3-- d/t pre renal state, back to baseline with IVF, last Creatine 1.4 on 02/07 Dysphagia:? Presently no issues swallowing, can have formal swallow eval tomorrow ?gastroparesis:? I don't think his issues is that and don't think we need to nuclear study ?Itching: ? No rash noted.? Benadryl p.r.n.. ? realted to med ,will review meds again ?Adult failure to? thrive:? Patient has poor oral intake question secondary to dysphagia.? Will also consult Nutrition for further recommendations. History of diabetes:? Lantus and SSI History of hypertension /hyperlipidemia:? Continue home amlodipine/ statin History of glaucoma: Continue home eye drops Hydronephrosis--seen by Uro and if renal function worse should have Percut nephrostomy tube Metastatic cancer from prostate CA--Dr. Lal PCP/Oncologist will see him today and formulate a plan DVT prophylaxis:? Subcu heparin Code status: Full code.? Confirmed with the patient's family at bedside. Inaptient need: ongoing treatment of MARIALUISA with IVF, and difficulty eating being work up by GI PT eval Quality Stroke Does the patient have a stroke diagnosis?: No VTE Prior VTE?: No VTE Risk Level:: Medical - moderate - high VTE Device Contraindication: Treatment Not Indicated VTE Drug Contraindication: N/A - Med Ordered
[2022-02-08 11:21] LABS: Glucose, Whole Blood 164 mg/dL (60-115)
[2022-02-08 12:00] VITALS: BP 136/70; PULSE 63; RESP 18; TEMP 36.1; O2SAT 98
[2022-02-08] MEDS: diphenhydrAMINE HCL 50 MG/ML VIAL 25 MG IVPUSH (12:02)
--- NOTE | 2022-02-08 13:31 | MHC.CM.PN ---
T/W MET WITH PATIENT HE IS VISION IMPAIRED IMM EXPLAINED. PATIENT VERBALIZES COMPREHENSION AND ASKS THAT THIS CHICKEN CUTTER LEAVE IMM ON BEDSIDE TABLE FOR HIS DAUGHTER TO CUSTOMER SERVICE CASHIER HE EXPECTS DAUGHTER (PEDRITO) SOMETIME TODAY CONTACT CARD LEFT ON TABLE WITH IMM. PATIENT RELIES ON A WALKER HE IS ACTIVE WITH [facility] AND A REFERRAL IS PLACED FOR AGENCY TO FOLLOW. COVID VACCINATED X 3 WITH MODERNA SERIES. IMM 02/08 IN CHART
--- NOTE | 2022-02-08 13:58 | MHC.SL.SWA ---
Speech Pathologist Impression: Oral phase dysphagia Dysphasia Diet Status: No change Liquid Consistency and Strategies for Safe Swallow: Liquid Intake Recommendation: Thin Liquid Intake Strategies: Small Sips Solid Food Consistency: Dietary Recommendations: Regular Additional Modifications to Solid Foods: Recommend REGULAR solids and THIN liquids, with pills WHOLE in LIQUID. D/t limited dentition, recommend avoid tough, difficult to chew solids, sticky consistencies; alternate bites of food with sips of liquid, chew food well. Patient is able to feed himself. ELECTRICIAN POWERHOUSE to f/u 1x time. Oral Medication Intake: Whole with Liquid Please contact the pharmacy regarding appropriate crushable or liquid drug formulations that are available whenever modified delivery is recommended. Compensatory Strategies and Precautions to be Taken for Safe Swallow: Sitting Upright (90 deg) Small Bites and Sips Alternate Liquids/Solids Rate of Ingestion Change Supervision While Eating and Drinking for Safe Swallow: None Needed Foods to Avoid: D/t limited dentition, recommend avoid tough, difficult to chew solids, sticky consistencies. Swallowing Recommended Treatments: Compens. Strategy Educat. Recommendation for Speech: Inpatient Speech Therapy Comment: Recommend 1 f/u while inpatient. Hatchery Supervisor Clinican/Clinical Fellow: No Supervisory Statement: I have reviewed and agree with the student/clinical fellow's documentation: N/A Speech Language Pathologist: Anila Scott M.A., CCC-ELECTRICIAN POWERHOUSE
[2022-02-08 15:17] VITALS: BP 142/72; PULSE 65; RESP 18; TEMP 36.3; O2SAT 97
[2022-02-08 16:38] LABS: Glucose, Whole Blood 158 mg/dL (60-115)
[2022-02-08] MEDS: Dextrose 5 % and 0.45 % NaCl 1,000 ML 50 ML IVCONT (17:10)
--- NOTE | 2022-02-08 17:55 | P.PNNP_ITS ---
Subjective Subjective Date of Service: 02/08/22 Interval history: Seen and examined, events noted Physical Exam Vital Signs: Vital Signs: Last Vital Signs Temp 97.3 F 02/08/22 15:17 Pulse 65 02/08/22 15:17 Resp 18 02/08/22 15:17 BP 142/72 H 02/08/22 15:17 Pulse Ox 97 02/08/22 15:17 BMI result Body Mass Index 31.9 Const: Other: General: AO X 3, no acute distress Resp: CTA bilateral CVS: S1,S2,RRR GI: +BS, NT, no distention Skin: chronic stasis dermatitis, ,left leg is bigger than the rigght from vein graft long ago Neuro: motor grossly intact Psych: appropriate affect Neck: Neck: Yes normal visual inspection Chest: Chest palpation & inspection: normal inspection of the chest Resp: Effort & Inspection: normal respiratory effort Cardio: Rate: regular rate Rhythm: regular rhythm Skin: General skin exam: no rashes or lesions noted Objective Data Labs CBC & Chem 7: 02/06/22 06:53 02/07/22 10:55 Labs: Laboratory Results - last 24 hr 02/07/22 02/08/22 02/08/22 20:57 07:37 11:06 POC Glucose 295 H 164 H 164 H 02/08/22 16:29 POC Glucose 158 H Procedures Date of Service Date of Service: 02/08/22 Assessment & Plan Assessment and plan (1) MARIALUISA (acute kidney injury): Status: Acute (2) Dehydration: Status: Acute (3) CKD (chronic kidney disease) stage 3, GFR 30-59 ml/min: Status: Acute Plan 1. MARIALUISA: c/w dehydration resolving w IVF--ques at new bsl 2. CKD 3 3. L [place] 4. Prostate Ca 5. GI sxms PLAN: cont IVF, urol eval of hydro, avoid Ntoxins will follow with team Time Spent With Patient Time: Total time spent is greater than 50% in coordination of care (as documented) at patient's floor/unit and/or counseling patient: Progress Note: Quality Stroke Does the patient have a stroke diagnosis?: No
[2022-02-08 20:00] VITALS: BP 121/58; PULSE 54; RESP 18; TEMP 36.6; O2SAT 94
[2022-02-08 20:37] LABS: Glucose, Whole Blood 148 mg/dL (60-115)
[2022-02-08] MEDS: Atorvastatin Calcium 80 MG TABLET PO (20:40)
[2022-02-08 23:23] VITALS: BP 131/63; PULSE 60; RESP 17; TEMP 36.1; O2SAT 95
[2022-02-09] VITALS (7 sets, daily range): BP systolic 105–157; BP diastolic 56–72; PULSE 52–84; RESP 14–18; TEMP 36.1–36.6; O2SAT 93–98
[2022-02-09] MEDS: Heparin Sodium,Porcine 5,000 UNIT/ML VIAL 5000 UNIT SUBCUT ×3 (05:51→23:04)
[2022-02-09] MEDS: Omeprazole 40 MG CAPSULE.DR PO ×2 (05:51→15:32)
[2022-02-09 06:19] LABS: Anion Gap 12 (12-20); Blood Urea Nitrogen 14 mg/dL (9-16); Calcium 8.6 mg/dL (8.4-10.2); Carbon Dioxide 27 mmol/L (22-29); Chloride 104 mmol/L (96-108); Creatinine Clr Calc Pharmacy 45.6; Estimated Glomerular Filt Rate 52; Glucose Random 136 mg/dL (60-115); Potassium 3.3 mmol/L (3.3-5.1); Sodium 140 mmol/L (135-145)
[2022-02-09 07:32] LABS: Glucose, Whole Blood 129 mg/dL (60-115)
[2022-02-09] MEDS: Insulin Lispro 100 UNIT/ML 3 ML VIAL SUBCUT ×2 (08:35→17:19)
[2022-02-09] MEDS: Potassium Chloride ER 20 MEQ TAB.ER.PRT PO (08:36)
[2022-02-09] MEDS: Furosemide 40 MG TABLET PO ×2 (08:36→23:04)
[2022-02-09] MEDS: Aspirin Enteric Coated 81 MG TABLET.DR PO (08:36)
[2022-02-09] MEDS: Insulin Glargine,Hum.rec.anlog 100 UNIT/ML 10 ML VIAL 10 UNIT SUBCUT ×2 (08:36→23:05)
--- NOTE | 2022-02-09 08:36 | P.PNIM_ITS ---
Subjective Subjective Date of Service: 02/09/22 Interval History: f/u on MARIALUISA, dedhydration. ? swallowing issues Interval history: He is doing very well, eating all meals with no problem. renal function has fully recovered Review of Systems no abd pain no n/v, Physical Exam Vital Signs: Vital Signs: Last Vital Signs Temp 97.6 F 02/09/22 07:13 Pulse 60 02/09/22 07:13 Resp 18 02/09/22 07:13 BP 140/68 H 02/09/22 07:13 Pulse Ox 93 02/09/22 07:13 BMI result Body Mass Index 31.9 Const: Other: General: AO X 3, no acute distress Resp: CTA bilateral CVS: S1,S2,RRR GI: +BS, NT, no distention Skin: chronic stasis dermatitis, ,left leg is bigger than the rigght from vein graft long ago Neuro: motor grossly intact Psych: appropriate affect Objective Data Active Medications Acetaminophen (Acetaminophen 325 Mg Tablet) 650 mg PO Q6H PRN PRN Reason: Pain, Mild (Pain Scale 1-3) Amlodipine Besylate (Amlodipine Besylate 10 Mg Tablet) 10 mg PO DAILY [facility]; Protocol Last Admin: 02/08/22 08:08 Dose: 10 mg Documented by: MIKE Aspirin (Aspirin Enteric Coated 81 Mg Tablet.) 81 mg PO DAILY [facility] Last Admin: 02/08/22 08:08 Dose: 81 mg Documented by: MIKE Atorvastatin Calcium (Atorvastatin Calcium 80 Mg Tablet) 80 mg PO BEDTIME [facility] Last Admin: 02/08/22 20:40 Dose: 80 mg Documented by: SISSY Benzonatate (Benzonatate 100 Mg Capsule) 100 mg PO TID PRN PRN Reason: Cough Brimonidine Tartrate (Brimonidine Tartrate 0.2% Oph 5 Ml Bottle) 1 drop EYE- BOTH TID [facility] Last Admin: 02/08/22 20:48 Dose: 1 drop Documented by: SISSY Dextrose (Dextrose 50 % 25 Gm/50 Ml Syringe) 25 gm IVPUSH Q15M PRN; Protocol PRN Reason: per Hypoglycemia Standing Ord. Diphenhydramine HCl (Diphenhydramine Hcl 50 Mg/Ml Vial) 25 mg IVPUSH Q6H PRN PRN Reason: Itching Last Admin: 02/08/22 12:02 Dose: 25 mg Documented by: BRYSON Dorzolamide/Timolol (Dorzolamide/Timolo 2.23%/0.68% 10 Ml Drbtl) 1 drop EYE- RIGHT BID [facility] Last Admin: 02/08/22 20:48 Dose: 1 drop Documented by: SISSY Ferrous Sulfate (Ferrous Sulfate 324 Mg Tablet.) 324 mg PO DAILY [facility] Last Admin: 02/08/22 08:08 Dose: 324 mg Documented by: ANTOIC Furosemide (Furosemide 40 Mg Tablet) 40 mg PO BID [facility]; Protocol Last Admin: 02/08/22 20:40 Dose: 40 mg Documented by: SISSY Glucose (Glucose Gel 15 Gm Gel..Gram.) 15 gm PO Q15M PRN; Protocol PRN Reason: per Hypoglycemia Standing Ord. Heparin Sodium (Porcine) (Heparin Sodium,Porcine 5,000 Unit/Ml Vial) 5,000 unit SUBCUT Q8H [facility] Last Admin: 02/09/22 05:51 Dose: 5,000 unit Documented by: KERI Hydromorphone HCl (Hydromorphone Hcl 1 Mg/Ml Syringe) 0.6 mg IVPUSH Q4H PRN; Protocol PRN Reason: Breakthrough Pain Insulin Glargine (Insulin Glargine,Hum.Rec.Anlog 100 Unit/Ml 10 Ml Vial) 10 unit SUBCUT BID [facility] Last Admin: 02/08/22 20:42 Dose: 10 unit Documented by: SISSY Insulin Human Lispro (Insulin Lispro 100 Unit/Ml 3 Ml Vial) 5 unit SUBCUT TIDAC [facility] Last Admin: 02/08/22 17:22 Dose: 5 unit Documented by: YEFRI Melatonin (Melatonin 3 Mg Tablet) 6 mg PO BEDTIME PRN PRN Reason: Insomnia Metoclopramide HCl (Metoclopramide Hcl 10 Mg/2 Ml Vial) 5 mg IVPUSH Q6H PRN PRN Reason: Nausea and Vomiting Patient Own Med ( Apalutamide [Erleada ] 60 Mg Tablet) 240 mg PO DAILY@1200 [facility] Last Admin: 02/08/22 12:41 Dose: 240 mg Documented by: YEFRI Omeprazole (Omeprazole 40 Mg Capsule.) 40 mg PO BID@0630,1630 [facility] Last Admin: 02/09/22 05:51 Dose: 40 mg Documented by: KERI Potassium Chloride (Potassium Chloride Er 20 Meq Tab.Er.Prt) 20 meq PO DAILY [facility] Last Admin: 02/08/22 08:08 Dose: 20 meq Documented by: ANTOIC Senna (Sennosides 8.6 Mg Tablet) 17.2 mg PO BEDTIME PRN PRN Reason: Constipation Sodium Chloride (0.9 % Sodium Chloride Flush 3 Ml Syringe) 3 ml IVFLUSH QSHIFT [facility] Last Admin: 02/09/22 01:22 Dose: Not Given Documented by: KERI Non-Admin Reason: IV Running Sucralfate (Sucralfate 1 Gm Tablet) 1 gm PO BIDAC [facility] Last Admin: 02/08/22 15:32 Dose: 1 gm Documented by: YEFRI Labs CBC & Chem 7: 02/06/22 06:53 02/09/22 05:44 Labs: Laboratory Results - last 24 hr 02/08/22 02/08/22 02/08/22 11:06 16:29 20:29 Anion Gap Estim Creat Clear Calc Estimated GFR POC Glucose 164 H 158 H 148 H Random Glucose Calcium 02/09/22 02/09/22 05:44 07:11 Anion Gap 12 Estim Creat Clear Calc 45.6 Estimated GFR 52 POC Glucose 129 H Random Glucose 136 H D Calcium 8.6 Assessment and Plan (1) MARIALUISA (acute kidney injury): Status: Acute (2) Dehydration: Status: Acute (3) CKD (chronic kidney disease) stage 3, GFR 30-59 ml/min: Status: Acute Plan 81-year-old male with a past medical history of hypertension, hyperlipidemia, diabetes, glaucoma, recent admission to the hospital for influenza;? discharged on 01/30/2022; presented to the hospital today with a chief complaint of poor oral intake/ coughing /itching.? noted to have following conditions MARIALUISA on CKD 3-- d/t pre renal state, back to baseline with IVF, last Creatine 1.3 on 02/09 Dysphagia:? No apparently swallowing difficulty, continue present meals no further studies warranted ?gastroparesis:? He does not exhibit any sign or symptoms or gastroparesis and therefore cancelling Nculear study ?Itching: ? No rash noted.? Benadryl p.r.n.. ? realted to med ,will review meds again ?Adult failure to? thrive:? Patient has poor oral intake question secondary to dysphagia.? Overall doing better History of diabetes:? continue Lantus and SSI History of hypertension:? Continue home amlodipine /hyperlipidemia: Statin History of glaucoma: Continue home eye drops Hydronephrosis--seen by Uro and if renal function worsens should have Percut nephrostomy tube Metastatic cancer from prostate CA--Dr. Lal PCP/Oncologist will see him today and formulate a plan DVT prophylaxis:? Subcu heparin Code status: Full code.? Confirmed with the patient's family at bedside. Inaptient need: ongoing treatment of MARIALUISA with IVF, and difficulty eating being work up by GI--things are improving, yet very deconditioned and will need rehab placement, case management working on this. PT eval : REcommend STR Quality Stroke Does the patient have a stroke diagnosis?: No VTE Prior VTE?: No VTE Risk Level:: Medical - moderate - high VTE Device Contraindication: Treatment Not Indicated VTE Drug Contraindication: N/A - Med Ordered
[2022-02-09] MEDS: Sucralfate 1 GM TABLET PO ×2 (08:37→15:32)
[2022-02-09] MEDS: Ferrous Sulfate 324 MG TABLET.DR PO (08:37)
[2022-02-09] MEDS: amLODIPine Besylate 10 MG TABLET PO (08:37)
[2022-02-09] MEDS: 0.9 % Sodium Chloride Flush 3 ML SYRINGE IVFLUSH ×2 (08:37→15:32)
[2022-02-09] MEDS: Brimonidine Tartrate 0.2% Oph 5 ML BOTTLE 1 DROP EYE-BOTH ×3 (08:40→23:05)
[2022-02-09] MEDS: Dorzolamide/Timolo 2.23%/0.68% 10 ML DRBTL 1 DROP EYE-RIGHT ×2 (08:40→23:05)
--- NOTE | 2022-02-09 11:40 | MHC.CM.PN ---
Addendum entered by Pinky Moore 02/09/22 16:20: PER CONVERSATION WITH (IN ROOM), FAMILY WILL TRANSPORT PATIENT HOME TOMORROW. PATIENT DENIES REHAB REFERRALS AND WANTS TO RETURN HOME WITH HIS SERVICES ALREADY IN PLACE Original Note: PLAN IS HOME TOMORROW WITH [facility] PEDRITO WILL BE IN TODAY AND IN AGREEMENT WITH PLAN.
[2022-02-09 11:42] LABS: Glucose, Whole Blood 123 mg/dL (60-115)
--- NOTE | 2022-02-09 13:41 | MHC.SL.SWA ---
Speech Pathologist Impression: Risk of Aspiration Due to: Dysphasia Diet Status: Regular with THIN liquids, PILLS WHOLE w/ LIQUID. Liquid Consistency and Strategies for Safe Swallow: Liquid Intake Recommendation: Thin Liquid Intake Strategies: Unrestricted Solid Food Consistency: Dietary Recommendations: Regular Additional Modifications to Solid Foods: Patient seen for bedside dysphagia evaluation while in the ED. Patient denied difficulty swallowing. No clinical signs of aspiration. Recommend REGULAR solids and THIN liquids, with pills WHOLE in LIQUID. D/t limited dentition, recommend avoid tough, difficult to chew solids, sticky consistencies; alternate bites of food with sips of liquid, chew food well. Patient is able to feed himself. USED EQUIPMENT SALES REPRESENTATIVE to f/u 1x time. Oral Medication Intake: Whole with Liquid Please contact the pharmacy regarding appropriate crushable or liquid drug formulations that are available whenever modified delivery is recommended. Compensatory Strategies and Precautions to be Taken for Safe Swallow: Sitting Upright (90 deg) Liquids from Cup Small Bites and Sips Supervision While Eating and Drinking for Safe Swallow: Intermittent Supervision Foods to Avoid: D/t limited dentition, recommend avoid tough, difficult to chew solids, sticky consistencies. Assure that tray is well set up, and Pt can access cutlery. Swallowing Recommended Treatments: Compens. Strategy Educat. Recommendation for Speech: Inpatient Speech Therapy: Pt seen at lunch for assessment of toleration of Regular Diet w/Thin Liquids. Pt had lunch tray present, however c/o food too dry, and not palatable. Pt had Chicken Pot pie, which appeared to be mostly a dry crust with small amount of meat w/ sparse gravy. Tray was removed, Pt was enjoying tea that came with meal, and had water at bedside. Pt reported that he had a good Breakfast with many items, most of which he ate. Pt reported no difficulty with swallowing. Recommend Patient continue on Regular Diet w/THIN liquids, Pills Whole w/ Liquid. D/C Speech at this time, please re-order if new concerns arise. Comment: D/C Speech. Frequency/Duration: Date Range for Service Req: Timeline to reassess: Carpenter'S Assistant Clinican/Clinical Fellow: No Supervisory Statement: I have reviewed and agree with the student/clinical fellow's documentation: N/A Speech Language Pathologist: Shivani Christensen M.A., CCC-USED EQUIPMENT SALES REPRESENTATIVE
--- NOTE | 2022-02-09 13:59 | CONS_ITS ---
DATE OF SERVICE: 02/07/2022 REASON FOR CONSULTATION: I was asked to see patient to assist in evaluation and management of patient's acute kidney injury with a creatinine of 2.27 yesterday on the and today has come down to 1.86 on IV fluids. Backdrop of what appears to be chronic kidney disease. Baseline creatinine around 1.4. HISTORY OF PRESENT ILLNESS: In summary, the patient is an 81-year-old gentleman with a history of hypertension, hyperlipidemia, diabetes, recent hospitalization for influenza, discharged on January 30, now presents to the hospital with poor p.o. intake, dehydration, cough, and itching. Apparently, he has not been eating well since he discharged from the hospital, having lot of burping and what sounds like reflux type symptoms. He denies taking any NSAIDs. He does note decreased urine output. PAST MEDICAL HISTORY: Notable for stage 3 chronic kidney disease, diabetes, glaucoma, history of heart block, as well as hypertension. MEDICATIONS: On admission are noted in the admitting notes. They include Lasix 40 twice a day, but he is on no RAAS inhibition or NSAIDs. CURRENT MEDICATIONS: Noted in the MAR. ALLERGIES: HE HAS ALLERGIES TO PENICILLIN. SOCIAL HISTORY: He is a nonsmoker, nondrinker. No illicit drug use. REVIEW OF SYSTEMS: As noted above. PHYSICAL EXAMINATION: VITAL SIGNS: Blood pressure of 130/60 with a heart rate in the 60s. He is afebrile. HEENT: Head is atraumatic and normocephalic. NECK: Supple. Mucous membranes are dry. There is no JVD. LUNGS: Breath sounds bilaterally. CARDIAC: Regular rate and rhythm. ABDOMEN: Soft, nontender. EXTREMITIES: No edema. LABORATORY DATA: Showed a creatinine 2.27 on admission on the whereas on the , when he had discharge is 1.34. Review of his creatinine anywhere from 1.4 to 2.0 in the past. Hemoglobin 11.2, hematocrit 33.5, white blood cell count 7.3. Urine studies showed 1+ protein. There was no urine sodium done as of yet. IMPRESSION: 81-YEAR-OLD READMITTED TO THE HOSPITAL WITH GI SYMPTOMS, POOR P.O. INTAKE, AND ACUTE KIDNEY INJURY ON CHRONIC KIDNEY DISEASE. 1. Acute kidney injury. Clinically, this is most consistent with renal hypoperfusion. Renal functions already gotten bit better with IV fluids. Other possibilities will need to be entertained. If the renal function does not continue to improve with IV fluids. We will check spot urine studies to see his fractional excretion of sodium, which we would anticipate being less than 1%. 2. 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 3. Gastrointestinal symptoms. Patient is going to be evaluated by GI. Recommend to continue IV fluids. Follow urine output and renal function. Avoid nephrotoxins. Depending on its clinical course, further renal evaluation may be necessary. We will see if the renal function continues to improve with IV fluids. MD MARIANNE Jorgensen/OMAYRA / [id number]
--- NOTE | 2022-02-09 16:03 | MHC.CLN ---
NUTRITION CONSULT FOR DECREASED INTAKE. FAMILY REPORTS THAT PATIENT HAS NOT BEEN EATING WEEL FOR A FEW WEEKS . RECENT HOSPITALIZATION FOR INFLUENZA, WITH DISCHARGE 01/30. NO WEIGHT LOSS NOTED. DIET=DIABETIC 1800 KCAL. TAKES SUPPLEMENT AT HOME. ADDING ENSURE BID TO PROVIDE ADDITIONAL 700 KCAL, 40 GRAMS PROTEIN.
[2022-02-09 16:18] LABS: Glucose, Whole Blood 142 mg/dL (60-115)
[2022-02-09 21:08] LABS: Glucose, Whole Blood 238 mg/dL (60-115)
[2022-02-09] MEDS: Atorvastatin Calcium 80 MG TABLET PO (23:04)
[2022-02-10] MEDS: 0.9 % Sodium Chloride Flush 3 ML SYRINGE IVFLUSH ×2 (01:08→09:04)
[2022-02-10 03:44] VITALS: BP 147/58; PULSE 85; RESP 17; TEMP 36.4; O2SAT 97
[2022-02-10] MEDS: Omeprazole 40 MG CAPSULE.DR PO (05:36)
[2022-02-10] MEDS: Heparin Sodium,Porcine 5,000 UNIT/ML VIAL 5000 UNIT SUBCUT (05:36)
[2022-02-10 07:42] VITALS: BP 140/65; BP 147/58; PULSE 62; PULSE 85; RESP 18; TEMP 36.4; O2SAT 96; O2SAT 97
[2022-02-10 07:53] LABS: Glucose, Whole Blood 133 mg/dL (60-115)
[2022-02-10] MEDS: Insulin Glargine,Hum.rec.anlog 100 UNIT/ML 10 ML VIAL 10 UNIT SUBCUT (09:03)
[2022-02-10] MEDS: Insulin Lispro 100 UNIT/ML 3 ML VIAL SUBCUT ×2 (09:03→12:10)
[2022-02-10] MEDS: Potassium Chloride ER 20 MEQ TAB.ER.PRT PO (09:04)
[2022-02-10] MEDS: Aspirin Enteric Coated 81 MG TABLET.DR PO (09:04)
[2022-02-10] MEDS: Ferrous Sulfate 324 MG TABLET.DR PO (09:04)
[2022-02-10] MEDS: Furosemide 40 MG TABLET PO (09:04)
[2022-02-10] MEDS: amLODIPine Besylate 10 MG TABLET PO (09:04)
[2022-02-10] MEDS: Sucralfate 1 GM TABLET PO (09:04)
[2022-02-10] MEDS: Dorzolamide/Timolo 2.23%/0.68% 10 ML DRBTL 1 DROP EYE-RIGHT (09:05)
[2022-02-10] MEDS: Brimonidine Tartrate 0.2% Oph 5 ML BOTTLE 1 DROP EYE-BOTH ×2 (09:05→15:25)
--- NOTE | 2022-02-10 09:29 | MHC.CM.PN ---
PT MEDICALLY CLEARED FOR D/C HOME W/[facility]UMP [facility] [employer] [facility]ACT[facility] NURSE [facility], DIL WILL BE IN AT APPROX 1PM TO TRANSPORT PT, [facility] WILL BRING IN CLOTHES. CM RETURNED CALL TO DTR PEDRITO TO DISCUSS PLAN, PEDRITO REPORTS DR MUNOZ WILL BE IN TO SEE PT AT NOON TODAY, PEDRITO REPORTING PT WILL D/C W/QUACH HOWEVER RN REPORTING PT HAS [place] CATH NOT INDWELLING, UNCLEAR AT THIS POINT WHETHER PT WILL D/C ON [place] OR INDWELLING, PER PEDRITO PT STOPPED DRINKING AND BECAME DEHYDRATED D/T INCONTINENCE D/T NOT HAVING ENOUGH TIME TO MAKE IT TO BR ONCE HE HAD THE URGE TO VOID. PEDRITO REPORTS PLAN IS FOR D/C W/QUACH. CM WILL CLARIFY PRIOR TO D/C.
--- NOTE | 2022-02-10 10:47 | PM.DS ---
DS: Providers Provider Date of Service: 02/10/22 Date of admission: 02/05/22 21:50 Primary care physician: Unknown Physician Consults: 02/05/22 21:47 Consult to Nephrology Routine Consulting Provider: Bossman Gonzalez Reason for consultation: MARIALUISA 02/05/22 21:49 Consult to Gastroenterology Routine Consulting Provider: Bart Holly Reason for consultation: dysphagia; ?pancreatic lesion; 02/06/22 21:16 Consult to Hematology / Oncology Routine Consulting Provider: Rashad Lal Reason for consultation: metastatic ca; unknown primary Consult to Urology Routine Consulting Provider: Espinoza Naqvi Reason for consultation: hydronephrosis 02/07/22 10:22 Consult to Hematology / Oncology Routine Consulting Provider: Rashad Lal Reason for consultation: metastatic cancer Has provider been notified: No DS: Diagnosis Discharge Diagnosis (1) MARIALUISA (acute kidney injury): Status: Acute (2) Dehydration: Status: Acute (3) CKD (chronic kidney disease) stage 3, GFR 30-59 ml/min: Status: Acute DS: Summary Hospital Course Hospital Course: Chief Complaint:? cough ?81-year-old male with a past medical history of hypertension, hyperlipidemia, diabetes, glaucoma, recent admission to the hospital for influenza;? discharged on 01/30/2022; presented to the hospital today with a chief complaint of poor oral intake/ coughing /itching.? ?spoke to the patient and patient's daughter at bedside; Reported that since discharge patient has been not eating well.? Patient reports that he has constant burping, and also feels like? foot stuck sensation many aids.? Denies any pain on swallowing.? Since discharge he also having itching all over the body, denies any rash.? Reports he has been having dry cough, and this afternoon had a coughing spell ; and also complains of generalized weakness.? Subsequently family brought into the hospital for further evaluation.? Patient denies any chest pain or palpitations Denies any? fever chills or sputum production.? ?denies any urinary symptoms.? Review of all other systems is negative except mentioned above ER course: Per ER team patient noted to be dehydrated; on labs noted to have elevated creatinine; admitted to the hospital for further management. Hospital course: 81-year-old male with a past medical history of hypertension, hyperlipidemia, diabetes, glaucoma, recent admission to the hospital for influenza;? discharged on 01/30/2022; presented to the hospital today with a chief complaint of poor oral intake/ coughing /itching.? noted to have following conditions MARIALUISA on CKD 3-- d/t pre renal state, creatine increased to 2.27,Management consisted of IV fluid and monitoring the renal function which has returned to baseline presently at 1.31. He was followed in consultation by the nephrology team who guided S with this management. ?Dysphagia:? There was a question of patient having difficulty swallowing on presentation, however has not demonstrated any difficulty swallowing here. A CT scan of the abdomen and pelvis that was done did not suggest any thoracic issues. The patient has been eating regular food o without any difficulty. He was seen by Gastroenterology and no further testing is warranted at this time. ?gastroparesis:? He does not exhibit any sign or symptoms or gastroparesis and therefore A nuclear emptying studies that was requested was later canceled. ?Itching: ? No rash noted.? Benadryl p.r.n..? ? realted to med ,will review meds again ?Adult failure to? thrive:? Patient has poor oral intake question secondary to dysphagia.? Overall His fluid intake has significantly increased. History of diabetes:? continue To resume his home regimen. History of hypertension:? Continue home amlodipine ?/hyperlipidemia: Statin History of glaucoma: Continue home eye drops Hydronephrosis--seen by Uro and and recommended that if renal function worsens should have Percut nephrostomy tube. He will be discharged with a Mcmahon catheter and to follow up with Dr. Naqvi on outpatient basis. 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 He has been evaluated by Dr. Lal his oncologist and discuss further treatment with him on outpatient basis.u Was evaluated by Physical therapy and recommended to go to short-term rehab however he and the family has declined this in favor of going home. Therefore a visiting nurse will be arranged. Time Spent with Patient Time attestation: Total time spent providing and/or coordinating discharge services: Discharge coordination time: Greater than 30 minutes Quality: Safe Use of Opioids Does Pt have an Active Cancer Diagnosis on the Problem List?: No Quality: Stroke Does the patient have a stroke diagnosis?: No Physical Exam Vital Signs: Vital Signs: Last Vital Signs Temp 97.5 F 02/10/22 07:42 Pulse 85 02/10/22 07:42 Resp 18 02/10/22 07:42 BP 147/58 H 02/10/22 07:42 Pulse Ox 97 02/10/22 07:42 BMI result Body Mass Index 31.9 DS: Data Data Completed and Pending Labs on day of discharge: Laboratory Results - last 24 hr 02/09/22 02/09/22 02/09/22 11:34 16:13 20:59 POC Glucose 123 H 142 H 238 H 02/10/22 07:36 POC Glucose 133 H Discharge Plan Discharge Anticipated Discharge Date/Time: 02/10/22 10:56 Patient Disposition: Home Health Service Discharge Diagnosis: MARIALUISA, Hydronephrosis, metastatic cancer Referrals: Physician,Unknown J [Primary Care Provider] - 1 Week Discharge Medications: Continued Erleada 60 mg Tablet 240 mg PO DAILY@1200 0RF niacin 500 mg tablet 1 tab PO DAILY 0RF potassium chloride 20 mEq tablet extended release 1 tab PO DAILY 0RF Lantus U-100 Insulin 10 units subcut BID 0RF insulin aspart U-100 [Novolog Flexpen U-100 Insulin] 100 unit/mL (3 mL) Insulin Pen 10 unit SUBCUT BID@0730,1630 0RF insulin aspart U-100 [Novolog Flexpen U-100 Insulin] 100 unit/mL (3 mL) Insulin Pen 6 unit SUBCUT DAILY@1130 0RF rosuvastatin 40 mg Tablet 40 mg PO DAILY 0RF amlodipine 10 mg Tablet 10 mg PO DAILY 0RF aspirin 81 mg Tablet,Delayed Release (Dr/Ec) 81 mg PO DAILY 0RF bimatoprost 0.01 % Drops 1 drp ophthalmic-Right BEDTIME 0RF brimonidine 0.2 % Drops 1 drp OPHTHALMIC (EYE) TID 0RF Rx Instructions: administer approximately 8 hours apart dorzolamide-timolol 22.3-6.8 mg/mL Drops 1 drp ophthalmic-Right BID 0RF ferrous sulfate 325 mg (65 mg iron) Tablet 325 mg PO DAILY 0RF furosemide 40 mg tablet 1 tab PO BID 0RF Discharge Orders: Discharge Order (Routine); Ordered 02/10/22 Ordered By: Steve Ness Diet: advance to usual diet and diabetic diet Stand Alone Forms: Patient Portal Discharge page Care Plan Goals: Full recovery from renal failure, Health Concerns: Metastatic prostate cancer Plan of Treatment: Follow up with Dr. Lal for cancer treatement Follow up with Dr. Naqvi for hydronephrosis Assessment: as above
--- NOTE | 2022-02-10 10:59 | W.MHC.F2F ---
Service Date Service Date: 02/10/22 Encounter Date of encounter: 02/10/22 Reasons for Services Signs and symptoms assessed: Generalized weakness from metastatic cancer Homebound: Leaving the home is medically contraindicated at this time without the asist of a device and/or another person due th the listed conditions above and below. Reason homebound: unsteady gait / fall risk and weakness related to hospital stay Homebound supporting statement: homebound to general weakness in light of metastatic cancer gait is not steady and therefore need the assistance of another person Certification: Based on the above findings, I certify that this patient is confined to the home and needs intermittent [facility] care, physical therapy and/or speech therapy, or continues to need occupational therapy. The patient is under my care, and I have initiated the establishment of the plan of care. The patient will be followed by a physician who will periodically review the plan of care.
[2022-02-10 11:10] LABS: Glucose, Whole Blood 182 mg/dL (60-115)
[2022-02-10 11:44] VITALS: BP 121/61; PULSE 68; RESP 17; TEMP 36.1; O2SAT 97
--- NOTE | 2022-02-10 15:57 | PC.NURSE ---
#16 Gill inserted ,patient tolerated it well,200 ml of clear yellow urine drained immediately,gill care explained to patient daughter,she stated understanding.#22 angio removed from left wrist,site clean,covered with sterile drsg,discharge instructions explained to patient and daughter by RN Jennifer Sifuentes
== END 2022-02-10 16:36 | disposition home health service (06) | DRG 683 ==
LOC: HO.ED 21:27 → HO.EDOVER 21:55 → HO.S3 02-06 18:46
PROVIDERS: Internal Medicine; Admitting Provider Hospitalist; Emergency Provider Emergency Medicine; Visit Provider Internal Medicine
DX: N17.9 Acute kidney failure, unspecified (principal); C78.02 Secondary malignant neoplasm of left lung; C78.01 Secondary malignant neoplasm of right lung; C77.8 Secondary and unspecified malignant neoplasm of lymph nodes of multiple regions; C78.7 Secondary malignant neoplasm of liver and intrahepatic bile duct; C79.72 Secondary malignant neoplasm of left adrenal gland; C79.51 Secondary malignant neoplasm of bone; H54.8 Legal blindness, as defined in USA; Z20.822 Contact with and (suspected) exposure to COVID-19; E86.0 Dehydration; I25.10 Atherosclerotic heart disease of native coronary artery without angina pectoris; I12.9 Hypertensive chronic kidney disease with stage 1 through stage 4 chronic kidney disease, or unspecified chronic kidney disease; N18.30 Chronic kidney disease, stage 3 unspecified; E11.22 Type 2 diabetes mellitus with diabetic chronic kidney disease; R13.10 Dysphagia, unspecified; E11.43 Type 2 diabetes mellitus with diabetic autonomic (poly)neuropathy; K31.84 Gastroparesis; E78.5 Hyperlipidemia, unspecified; C61 Malignant neoplasm of prostate; N13.30 Unspecified hydronephrosis; R62.7 Adult failure to thrive; E11.40 Type 2 diabetes mellitus with diabetic neuropathy, unspecified; I87.2 Venous insufficiency (chronic) (peripheral); Z68.32 Body mass index [BMI] 32.0-32.9, adult; Z87.891 Personal history of nicotine dependence; Z95.1 Presence of aortocoronary bypass graft; Z95.0 Presence of cardiac pacemaker; Z88.0 Allergy status to penicillin; Z79.4 Long term (current) use of insulin; Z79.82 Long term (current) use of aspirin; Z79.899 Other long term (current) drug therapy
CPT/HCPCS: 0241U; 36415; 71045; 71250; 74176; 80048; 80076; 81001; 82947; 83690; 83880; 84484; 85025; 92507; 92610; 93005; 96360; 97116; 97162; 99285; J1200

== ENCOUNTER 2022-02-15 01:38 | Emergency (ER) | payer MEDICARE, SELFPAY ==
[2022-02-15 01:41] VITALS: BP 111/57; BP 144/78; PULSE 64; PULSE 87; RESP 18; TEMP 36.9; O2SAT 96; O2SAT 97; BMI 33.9
--- NOTE | 2022-02-15 02:24 | PC.NURSE ---
Pt c/o pain on buttocks and under butt cheecks. Per pt, there's scar tissue there that I can't get to. Redness around groin and buttocks Abrasions/rash under bilateral butt cheecks
[2022-02-15 03:29] VITALS: BP 119/65; PULSE 85; RESP 14; O2SAT 96
--- NOTE | 2022-02-15 03:43 | PC.NURSE ---
Spoke with pt's daughter, Moon who states that pt and pt's has nurse/aid to visit pt and during the day and the night. Per daughter, will take patient home but is an hour away.
--- NOTE | 2022-02-15 03:50 | ED.MALEGU ---
HPI - Male Genitourinary General Chief complaint: Urogenital-Male Stated complaint: gill issues Time Seen by Provider: 02/15/22 01:58 History of Present Illness HPI Narrative: Patient is an 81-year-old male with a history of chronic Gill. Presents today with having irritation in the area surrounding his Gill catheter. Denies any fever chills. No nausea no vomiting. No systemic complaints. Patient is from home. Has family member willing to take care of him. Has a visiting nurse that sees him once a day. No systemic complaints. Positive irritation that is been ongoing for days. Related Data Home Medications Medication Instructions Recorded Confirmed Lantus U-100 Insulin 10 units SUBCUT BID 01/28/22 02/05/22 apalutamide 60 mg tablet (Erleada) 240 mg PO DAILY@1200 01/28/22 02/05/22 niacin 500 mg tablet 1 tab PO DAILY 01/28/22 02/05/22 potassium chloride 20 mEq 1 tab PO DAILY 01/28/22 02/05/22 tablet,extended release amlodipine 10 mg tablet 10 mg PO DAILY 01/29/22 02/05/22 aspirin 81 mg tablet,delayed 81 mg PO DAILY 01/29/22 02/05/22 release bimatoprost 0.01 % eye drops 1 drp OPHTHALMIC-RIGHT BEDTIME 01/29/22 02/05/22 brimonidine 0.2 % eye drops 1 drp OPHTHALMIC (EYE) TID 01/29/22 02/05/22 dorzolamide 22.3 mg-timolol 6.8 1 drp OPHTHALMIC-RIGHT BID 01/29/22 02/05/22 mg/mL eye drops ferrous sulfate 325 mg (65 mg 325 mg PO DAILY 01/29/22 02/05/22 iron) tablet insulin aspart U-100 100 unit/mL 6 unit SUBCUT DAILY@1130 01/29/22 02/05/22 (3 mL) subcutaneous pen (Novolog Flexpen U-100 Insulin aspart) insulin aspart U-100 100 unit/mL 10 unit SUBCUT BID@0730,1630 01/29/22 02/05/22 (3 mL) subcutaneous pen (Novolog Flexpen U-100 Insulin aspart) rosuvastatin 40 mg tablet 40 mg PO DAILY 01/29/22 02/05/22 furosemide 40 mg tablet 1 tab PO BID 02/05/22 02/05/22 Previous Rx's Medication Instructions Recorded clotrimazole 1 % topical cream 1 appl TOPICAL BID 28 Days #90 g 02/15/22 (Antifungal (clotrimazole)) clotrimazole 1 % topical cream 1 appl TOPICAL BID 28 Days g 02/15/22 (Lotrimin AF (clotrimazole)) Allergies Allergy/AdvReac Type Severity Reaction Status Date / Time Penicillins [PCN] Allergy Unknown UNKNOWN Verified 02/05/22 19:43 Review of Systems Review of Systems: No fever no chills no nausea no vomiting no systemic complaints Yes all other systems are reviewed and are negative [facility] Past Medical History Attestation statement: The following information was validated with the patient. Medical History CKD (chronic kidney disease) stage 3, GFR 30-59 ml/min Diabetes Diabetes with retinopathy Glaucoma History of heart block HTN (hypertension) Legally blind Surgical History Status post cardiac pacemaker procedure Social History Social History Household Members: Spouse Housing: Apartment Do you presently have visiting nurse or other home services: Yes Alcohol intake: never Patient Tobacco Use Status: Never used Tobacco Advance Directives: No Advance Directives Information Provided: No service: Yes Current occupational status: retired Physical Exam Vital Signs: Vital Signs: Last Vital Signs Temp 98.4 F 02/15/22 01:41 Pulse 85 02/15/22 03:29 Resp 14 02/15/22 03:29 BP 119/65 02/15/22 03:29 Pulse Ox 96 02/15/22 03:29 BMI result Body Mass Index 33.9 Appearance: Alert. Oriented X3. No acute distress. Eyes: Pupils equal, round and reactive to light. ENT: Pharynx normal. Neck: Normal inspection. Neck supple. No lymph nodes noted. No crepitus CVS: Normal heart rate and rhythm. Pulses normal. Normal S1 and S2 Respiratory: No respiratory distress. Breath sounds normal. No Wheezing. No rales Abdomen: Soft and nontender. No rigidity. No distention. good BS x4 Skin: Area next to the Gill showed slight redness. Moist appearance. There is no crepitus. The redness extends to area cover by his pull up brief. Extremities: No lower extremity edema. Neurovascular intact to all extremities. No Lacerations. No Rash Neuro: Oriented X 3. No motor deficit. No sensory deficit. Moving all extermities. No slurred speech The Gill was flushed. There is no gross obstruction noted. Draining nicely. There was over 400 cc of urine in the bag. MDM - Male Genitourinary MDM Narrative Medical decision making narrative: Patient well-appearing vital signs are normal there is no fever no chills. There is local irritation next to the Gill catheter consistent with having a fungal infection. Will start patient on Lotrimin. Will have patient keep the area clean as much impossible. In stable condition. Will discussed finding with family. Patient to be discharged home Medical Records Attestation: I reviewed the patient's medical records. Lab Data Attestation: I reviewed the patient's lab results. Discharge Plan Discharge Clinical Impression: Yeast dermatitis Patient Disposition: Home, Self-Care Instructions: Skin Yeast Infection (ED) Prescriptions: New clotrimazole [Lotrimin AF (clotrimazole)] 1 % cream 1 appl topical BID 28 Days 0RF clotrimazole [Antifungal (clotrimazole)] 1 % cream 1 appl topical BID 28 Days Qty: 90 0RF No Action Erleada 60 mg Tablet 240 mg PO DAILY@1200 0RF niacin 500 mg tablet 1 tab PO DAILY 0RF potassium chloride 20 mEq tablet extended release 1 tab PO DAILY 0RF Lantus U-100 Insulin 10 units subcut BID 0RF insulin aspart U-100 [Novolog Flexpen U-100 Insulin] 100 unit/mL (3 mL) Insulin Pen 10 unit SUBCUT BID@0730,1630 0RF insulin aspart U-100 [Novolog Flexpen U-100 Insulin] 100 unit/mL (3 mL) Insulin Pen 6 unit SUBCUT DAILY@1130 0RF rosuvastatin 40 mg Tablet 40 mg PO DAILY 0RF amlodipine 10 mg Tablet 10 mg PO DAILY 0RF aspirin 81 mg Tablet,Delayed Release (Dr/Ec) 81 mg PO DAILY 0RF bimatoprost 0.01 % Drops 1 drp ophthalmic-Right BEDTIME 0RF brimonidine 0.2 % Drops 1 drp OPHTHALMIC (EYE) TID 0RF Rx Instructions: administer approximately 8 hours apart dorzolamide-timolol 22.3-6.8 mg/mL Drops 1 drp ophthalmic-Right BID 0RF ferrous sulfate 325 mg (65 mg iron) Tablet 325 mg PO DAILY 0RF furosemide 40 mg tablet 1 tab PO BID 0RF Referrals: Physician,Unknown J [Primary Care Provider] - (Please follow-up closely with your primary physician.)
[2022-02-15 04:37] VITALS: BP 121/72; PULSE 87; RESP 16; O2SAT 94
[2022-02-15 04:50] LABS: MANUAL DIFF FLAG NO
[2022-02-15 04:51] LABS: Basophils Percent Auto 0.6 % (0-2); Eosinophils Absolute Auto 0.5 X10*3/uL (0.0-0.4); Eosinophils Percent Auto 7.6 % (0-4); Hematocrit 36.2 % (42.0-52.0); Hemoglobin 12.2 g/dl (14.0-18.0); Imm Gran Abs Auto 0.02 X10*3/uL (0.00-0.03); Imm Gran Pct Auto 0.3 % (0.0-0.4); Lymphocytes Absolute Auto 1.7 X10*3/uL (1.2-4.9); Lymphocytes Percent Auto 26.3 % (20-40); Mean Corpuscular HGB Conc 33.7 g/dl (31.0-36.0); Mean Corpuscular Hemoglobin 30.6 pg (27.0-33.0); Mean Corpuscular Volume 90.7 fL (80.0-98.0); Mean Platelet Volume 9.5 fL (9.4-12.4); Monocytes Absolute Auto 0.7 X10*3/uL (0.1-1.2); Monocytes Percent Auto 11.1 % (2-11); Neutrophils Absolute Auto 3.5 x10*3/uL (2.0-8.3); Neutrophils Percent Auto 54.1 % (45-73); Platelet Count 257 X10*3/uL (160-400); Red Blood Count 3.99 X10*6/uL (4.60-5.80); Red Cell Distribution Width 14.6 % (11.0-16.0); White Blood Count 6.5 X10*3/uL (4.8-10.8)
[2022-02-15 05:06] LABS: Anion Gap 16 (12-20); Blood Urea Nitrogen 24 mg/dL (9-16); Calcium 8.8 mg/dL (8.4-10.2); Carbon Dioxide 26 mmol/L (22-29); Chloride 95 mmol/L (96-108); Creatinine Clr Calc Pharmacy 35.9; Estimated Glomerular Filt Rate 39; Glucose Random 320 mg/dL (60-115); Sodium 133 mmol/L (135-145)
[2022-02-16 01:02] LABS: Glucose, Whole Blood 313 mg/dL (60-115)
== END 2022-02-15 05:37 | disposition home or self-care (01) ==
PROVIDERS: Emergency Provider Emergency Medicine Emergency Medical Services
DX: B37.49 Other urogenital candidiasis (principal); Z46.6 Encounter for fitting and adjustment of urinary device; E11.9 Type 2 diabetes mellitus without complications; I10 Essential (primary) hypertension
CPT/HCPCS: 36415; 80048; 82947; 85025; 99283

== ENCOUNTER 2022-02-20 15:15 | Inpatient (IN) | payer OTHER, SELFPAY ==
--- NOTE | ~2022-02-20 | CT_ITS ---
EXAMINATION: CT ABDOMEN AND PELVIS WITHOUT CONTRAST CLINICAL INFORMATION: hydronephrosis. COMPARISON: Audible prior examinations including most recent CT abdomen and pelvis January 2022 TECHNIQUE: Multidetector volumetric imaging was performed from the superior aspect of the liver through the pubic symphysis. Sagittal and coronal reformatted images were obtained on the technologist's workstation. This CT examination was performed using dose optimization techniques as appropriate, variously including the following: *Automated exposure control *Adjustment of mA and/or kV according to patient size (this includes techniques or standardized protocols for targeted exams where dose is matched to indication/reason for exam; i.e. extremities or head) *Use of iterative reconstruction technique DLP: 795 mGy-cm FINDINGS: LUNG BASES: Scattered coarse interstitial markings noted throughout both lungs compatible with fibrotic change stable. LIVER, GALLBLADDER, AND BILIARY TREE: Small subtle hypodense nodules measuring up to 1 cm in the posterior aspect of the right lobe of liver unchanged. Gallstones present. No pericholecystic fluid no intrahepatic or extrahepatic biliary dilatation. PANCREAS: There is persistent and perhaps slightly increased stranding in the soft tissues surrounding the head and body the pancreas small rounded 3 mm opaque density noted within the distal common bile duct pancreatic duct junction. See axial image 108 series 3. This raises the question of gallstone pancreatitis. SPLEEN: Scattered small calcifications throughout the spleen as before compatible with granulomas. ADRENAL GLANDS: Unremarkable. KIDNEYS AND URETERS: There is persistent hydronephrosis and hydroureter down to level of the pelvis as before no urinary tract stones. BLADDER: Decompressed with Mcmahon catheter in place. GASTROINTESTINAL TRACT: The small and large bowel are unremarkable. The appendix is unremarkable. ABDOMINAL WALL: No significant hernia is appreciated. LYMPH NODES: Increased left pelvic iliac lymph nodes unchanged measuring up to 2 cm transverse. VASCULAR: Advanced calcific atherosclerotic disease throughout PELVIC VISCERA: Unremarkable. OSSEOUS STRUCTURES: Multiple sclerotic lesions in the spine and pelvis unchanged including pathologic fracture of L3. Spinal instrumentation redemonstrated. CT/CT abdomen pelvis wo con IMPRESSION: Suspect gallstone pancreatitis. Correlate clinically to confirm the diagnosis of pancreatitis. Subtle possible stone within the junction of the common bile duct and pancreatic duct Sclerotic metastases unchanged. Liver lesions less conspicuous compared to prior. Persistent dilatation of the left collecting system down to the level of the pelvic lymphadenopathy as before. Fleischner guidelines were followed.
--- NOTE | ~2022-02-20 | CT_ITS ---
CT head/brain wo con CLINICAL INFORMATION: Fall trauma COMPARISON: No prior CT scan available for comparison. TECHNIQUE: Department standard protocol. This CT examination was performed using dose optimization techniques as appropriate, variously including the following: *Automated exposure control *Adjustment of mA and/or kV according to patient size (this includes techniques or standardized protocols for targeted exams where dose is matched to indication/reason for exam; i.e. extremities or head) *Use of iterative reconstruction technique DLP: 626 mGy-cm FINDINGS: CEREBRAL HEMISPHERES: There is no evidence of intra-axial or extra-axial mass, hemorrhage or acute infarct. BRAIN PARENCHYMA: Deep white matter and paraventricular hypoattenuation, nonspecific; most likely changes secondary to chronic ischemia due to microvascular angiopathy. SUBDURAL SPACE: No bleed. BASAL GANGLIA AND PINEAL GLAND: Unremarkable VENTRICLES: Symmetric and normal in size. CEREBELLUM AND BRAINSTEM: No space-occupying mass, hemorrhage or acute infarct. CEREBELLOPONTINE ANGLES: No lesion found. ORBITS: There is left globe atrophy/internal calcifications. VESSELS: Unremarkable SKULL BASE: Unremarkable INCLUDED SINUSES AT SKULL BASE: Clear SKULL AND SKIN: No fracture or bone lesion found. CT/CT head/brain wo con IMPRESSION: Deep white matter and periventricular hypoattenuation, nonspecific; most likely sequela of chronic microvascular angiopathy ischemia. No fracture. No CT evidence of intracranial bleed. Atrophy and intraglobal calcification left orbit please correlate with the clinical exam.
--- NOTE | ~2022-02-20 | CT_ITS ---
EXAMINATION: CT CERVICAL SPINE without contrast CLINICAL INFORMATION: Fall COMPARISON: No prior CT available, TECHNIQUE: Computed axial sagittal and coronal images acquired using department's standard protocol. This CT examination was performed using dose optimization techniques as appropriate, variously including the following: *Automated exposure control *Adjustment of mA and/or kV according to patient size (this includes techniques or standardized protocols for targeted exams where dose is matched to indication/reason for exam; i.e. extremities or head) *Use of iterative reconstruction technique CONTRAST: Noncontrasted study DLP: mGy-cm FINDINGS: SKULL BASE: Visualized structures at skull base are normal, Included facial sinuses are clear, CERVICAL VERTEBRAE: 7 cervical vertebrae identified maintaining a proper height and alignments, there are multiple scattered heterogeneous osteolytic and osteosclerotic areas concerning for possible bone metastasis such as from prostate CA, this has completely involve the C3 level, multiple patchy areas involving other vertebrae. DISCS: Loss of disc height and developed osteophyte from the edges of endplates suggest underlying degenerative disc disease this is present identified at all levels. Advanced arthritis also involving the first atlantoaxial joint. Axial images reveal no fracture. No significant central or foraminal stenosis. PARAVERTEBRAL SOFT TISSUE: There are vascular calcifications. CT/CT cervical spine wo con IMPRESSION: *No acute fracture. *Multiple osteolytic and osteosclerotic densities involving the entire cervical spine concerning for bone metastasis especially possible prostate CA. Elevated diagnosis has not already been established, May consider correlation with follow-up bone scan. *Underlying early advanced degenerative disc disease at all levels.
[2022-02-20 15:22] VITALS: BP 130/67; PULSE 102; PULSE 91; RESP 18; TEMP 36.7; O2SAT 96; BMI 32.1
--- NOTE | 2022-02-20 15:28 | ECG_ITS ---
Test Reason : FALL Blood Pressure : / mmHG Vent. Rate : 121 BPM Atrial Rate : 093 BPM P-R Int : 000 ms QRS Dur : 188 ms QT Int : 436 ms P-R-T Axes : 000 -72 117 degrees QTc Int : 619 ms Ventricular-paced rhythm Abnormal ECG When compared with ECG of 05-FEB-2022 21:19, Vent. rate has increased BY 31 BPM Referred By: Vera Tee Electronically Signed By:LILO JONES
[2022-02-20 15:57] LABS: MANUAL DIFF FLAG NO
[2022-02-20 15:58] LABS: Basophils Percent Auto 0.3 % (0-2); Eosinophils Percent Auto 0.3 % (0-4); Hematocrit 37.8 % (42.0-52.0); Hemoglobin 12.6 g/dl (14.0-18.0); Imm Gran Abs Auto 0.04 X10*3/uL (0.00-0.03); Imm Gran Pct Auto 0.4 % (0.0-0.4); Lymphocytes Absolute Auto 0.8 X10*3/uL (1.2-4.9); Lymphocytes Percent Auto 8.5 % (20-40); Mean Corpuscular HGB Conc 33.3 g/dl (31.0-36.0); Mean Corpuscular Hemoglobin 30.4 pg (27.0-33.0); Mean Corpuscular Volume 91.1 fL (80.0-98.0); Mean Platelet Volume 9.7 fL (9.4-12.4); Monocytes Absolute Auto 0.7 X10*3/uL (0.1-1.2); Monocytes Percent Auto 6.6 % (2-11); Neutrophils Absolute Auto 8.2 x10*3/uL (2.0-8.3); Neutrophils Percent Auto 83.9 % (45-73); Platelet Count 311 X10*3/uL (160-400); Red Blood Count 4.15 X10*6/uL (4.60-5.80); Red Cell Distribution Width 14.9 % (11.0-16.0); White Blood Count 9.8 X10*3/uL (4.8-10.8)
--- NOTE | 2022-02-20 16:03 | PHA.MEDREC ---
Pharmacy Consult ? Medication Reconciliation Pharmacy has completed the medication reconciliation.Spoke to patients family member
[2022-02-20 16:24] LABS: Alanine Aminotransferase 11 U/L (0-40); Albumin Level 3.4 g/dL (3.5-5.0); Alkaline Phosphatase 181 U/L (39-117); Anion Gap 20 (12-20); Aspartate Amino Transferase 25 U/L (5-37); Bilirubin Direct 0.2 mg/dL (0.0-0.5); Bilirubin Total 0.5 mg/dL (0.0-1.0); Blood Urea Nitrogen 27 mg/dL (9-16); Calcium 8.9 mg/dL (8.4-10.2); Carbon Dioxide 23 mmol/L (22-29); Chloride 92 mmol/L (96-108); Creatinine Clr Calc Pharmacy 26.8; Estimated Glomerular Filt Rate 28; Glucose Random 414 mg/dL (60-115); Magnesium 2.3 mg/dL (1.6-2.6); Sodium 130 mmol/L (135-145); Total Protein 7.1 g/dL (6.5-8.0)
[2022-02-20 16:28] LABS: COVID-19 Test Negative (Negative); IDNOW Serial# 16C4AD1C; Influenza A Negative (Negative); Influenza B2 Negative (Negative)
--- NOTE | 2022-02-20 16:39 | ED.GENADULT ---
HPI - General Adult General Chief complaint: General Medical Stated complaint: ?uti/dehydration Time Seen by Provider: 02/20/22 15:19 Source: patient and EMS Mode of arrival: EMS History of Present Illness HPI narrative: 81-year-old male with a past medical history of hypertension, HLD, DM, glaucoma, metastatic prostate CA, recent admission to our hospital for MARIALUISA and dehydration, presenting to ED via EMS from SNF for reported decreased p.o. intake and cloudy output from Mcmahon catheter. Patient also reports mechanical trip and fall this morning after getting tangled up, admits to hitting head, denies LOC. denies symptoms prior to fall. denies CP/SOB, abdominal pain, nausea, vomiting, diarrhea, fever, chills Onset (ago): day(s) Related Data Home Medications Medication Instructions Recorded Confirmed Lantus U-100 Insulin 10 units subcut BID 01/28/22 02/20/22 apalutamide 60 mg tablet (Erleada) 240 mg PO DAILY@1200 01/28/22 02/20/22 niacin 500 mg tablet 1 tab PO DAILY 01/28/22 02/20/22 potassium chloride 20 mEq 1 tab PO DAILY 01/28/22 02/20/22 tablet,extended release amlodipine 10 mg tablet 10 mg PO DAILY 01/29/22 02/20/22 aspirin 81 mg tablet,delayed 81 mg PO DAILY 01/29/22 02/20/22 release bimatoprost 0.01 % eye drops 1 drp ophthalmic-Right BEDTIME 01/29/22 02/20/22 brimonidine 0.2 % eye drops 1 drp ophthalmic (eye) TID 01/29/22 02/20/22 dorzolamide 22.3 mg-timolol 6.8 1 drp ophthalmic-Right BID 01/29/22 02/20/22 mg/mL eye drops ferrous sulfate 325 mg (65 mg 325 mg PO DAILY 01/29/22 02/20/22 iron) tablet insulin aspart U-100 100 unit/mL 6 unit subcut DAILY@1130 01/29/22 02/20/22 (3 mL) subcutaneous pen (Novolog Flexpen U-100 Insulin aspart) insulin aspart U-100 100 unit/mL 8 unit subcut BID@0730,1630 01/29/22 02/20/22 (3 mL) subcutaneous pen (Novolog Flexpen U-100 Insulin aspart) rosuvastatin 40 mg tablet 40 mg PO BEDTIME 01/29/22 02/20/22 furosemide 40 mg tablet 1 tab PO BID 02/05/22 02/20/22 diphenhydramine HCl 25 mg capsule 25 mg PO BID 02/20/22 02/20/22 omeprazole 20 mg tablet,delayed 20 mg PO DAILY@0630 02/20/22 02/20/22 release Previous Rx's Medication Instructions Recorded clotrimazole 1 % topical cream 1 appl topical BID 4 weeks #90 02/15/22 (Antifungal (clotrimazole)) grams Allergies Allergy/AdvReac Type Severity Reaction Status Date / Time Penicillins [PCN] Allergy Unknown UNKNOWN Verified 02/05/22 19:43 Review of Systems Review of Systems: Constitutional: No Fever, No Chills, No Fatigue, No Malaise, +anorexia ENT/Mouth: No Ear Pain, No Nasal Congestion, No sore throat, No Rhinorrhea, No Swallowing Difficulty Eyes: No Eye Pain, No Swelling, No Redness Cardiovascular: No Chest Pain, No SOB, No Dyspnea on Exertion, +chronic LLE Edema Respiratory: No Cough, No Sputum, No Dyspnea Gastrointestinal: No Nausea, No Vomiting, No Diarrhea, No Constipation, No Abdominal pain Genitourinary: No Dysuria, No Urinary Frequency, No Hematuria, No Urinary Incontinence/retention, No Urgency, No Flank Pain, No Urinary Flow Changes= Musculoskeletal: No joint pain, No Myalgias, No Joint Swelling Skin: No Skin Lesions, No rash Neuro: No Weakness, No Dizziness, No , +head injury, No Headache Yes all other systems are reviewed and are negative Neurologic: Denies Abnormal speech present [facility] Past Medical History Attestation statement: The following information was validated with the patient. Medical History MARIALUISA (acute kidney injury) CKD (chronic kidney disease) stage 3, GFR 30-59 ml/min CKD (chronic kidney disease) stage 3, GFR 30-59 ml/min Diabetes Diabetes with retinopathy Glaucoma History of heart block HTN (hypertension) Hydronephrosis Legally blind Surgical History Status post cardiac pacemaker procedure Social History Social History Household Members: Spouse Housing: Apartment Do you presently have visiting nurse or other home services: Yes Alcohol intake: never Patient Tobacco Use Status: Never used Tobacco Advance Directives: No Advance Directives Information Provided: No service: Yes Current occupational status: retired Physical Exam ED Vital Signs: Vital Signs - 24 hr 02/20/22 15:22 02/20/22 16:43 Temperature 98.1 F 98.0 F Pulse Rate 91 93 Respiratory Rate 18 16 Blood Pressure 130/67 128/61 Pulse Oximetry 96 93 Oxygen Delivery Method Room Air Room Air BMI result Body Mass Index 32.1 Const General: cooperative and no acute distress Orientation/consciousness: patient oriented x3 Limitations: no limitations HENMT Head: Yes normal to inspection and Yes atraumatic Ears: hearing grossly normal bilaterally General nose exam: Normal external nose present Face and sinus: Yes normal facial exam Eyes General: appearance normal, both eyes and all related structures EOM: EOMs intact bilaterally Neck Neck: Yes normal visual inspection and Yes no meningeal signs Resp Effort & Inspection: normal respiratory effort and no respiratory distress Auscultation: clear to auscultation bilaterally, no crackles, no rales, no rhonchi and no wheezes Cardio Rate: regular rate Heart sounds: S1 normal heart sound present and S2 normal heart sound present GI Inspection: Yes normal to inspection Palpation (GI): Soft to palpation, nontender, no guarding and not rigid Skin Rashes: no rashes Wounds: no wounds Neuro General: patient oriented x3, tone normal, moves all extremities, no meningeal signs, no focal motor deficits and CN's II-XI intact bilaterally Cognition (Neuro): normal cognition Speech: No Abnormal speech present Extrem Other: Chronic lower extremity skin changes, no warmth or active cellulitis. Left lower extremity with chronic pitting edema per patient Course Course Course Narrative: -1651--no leukocytosis. H&H at patient's baseline. Acute on chronic CKD with a BUN of 27, creatinine of 2.2. Glucose 414, no anion gap. -1726--UA infected > IV Rocephin ordered -acetone positive, patient was given subcu insulin, IVF running > repeat POC 310 1800-- Case discussed with hospitalist who accepted patient. ED care transferred to [facility] pending head/C-spine CT results and admission Medical Decision Making [facility] Narrative Medical decision making narrative: 81-year-old male with a past medical history of hypertension, HLD, DM, glaucoma, metastatic prostate CA, recent admission to our hospital for MARIALUISA and dehydration, presenting to ED via EMS from SNF for reported decreased p.o. intake and cloudy output from Mcmahon catheter. On exam vital signs stable, NAD/nontoxic-appearing, physical exam as above. Cloudy urine noted from Mcmahon catheter. Concern for acute on chronic CKD vs dehydration vs UTI. Rule out metabolic/infectious etiologies and ICH Plan: EKG, labs, UA, head/C-spine CT, anticipated admission Medical Records Medical records reviewed: Yes I reviewed the patient's medical records. Lab Data Lab results reviewed: Yes I reviewed the patient's lab results. Result diagrams: 02/20/22 15:54 02/20/22 15:54 Labs: Lab Results 02/20/22 02/20/22 02/20/22 Range/Units 15:54 15:54 15:59 WBC 9.8 (4.8-10.8) X10*3/uL RBC 4.15 L (4.60-5.80) X10*6/uL Hgb 12.6 L (14.0-18.0) g/dl Hct 37.8 L (42.0-52.0) % MCV 91.1 (80.0-98.0) fL MCH 30.4 (27.0-33.0) pg MCHC 33.3 (31.0-36.0) g/dl RDW 14.9 (11.0-16.0) % Plt Count 311 (160-400) X10*3/uL MPV 9.7 (9.4-12.4) fL Immature Gran % (Auto) 0.4 (0.0-0.4) % Neut % (Auto) 83.9 H (45-73) % Lymph % (Auto) 8.5 L (20-40) % [place] % (Auto) 6.6 (2-11) % Eos % (Auto) 0.3 (0-4) % Baso % (Auto) 0.3 (0-2) % Lymph # (Auto) 0.8 L (1.2-4.9) X10*3/uL [place] # (Auto) 0.7 (0.1-1.2) X10*3/uL Eos # (Auto) 0.0 (0.0-0.4) X10*3/uL Baso # (Auto) 0.0 (0.0-0.2) X10*3/uL Abs Immat Gran (auto) 0.04 H (0.00-0.03) X10*3/uL Absolute Neuts (auto) 8.2 (2.0-8.3) x10*3/uL Absolute Nucleated RBC 0.000 (0.0-0.012) X10*3/uL Nucleated RBC % (auto) 0.0 (0.0-0.2) /100WBC Sodium 130 L (135-145) mmol/L Potassium 5.0 D (3.3-5.1) mmol/L Chloride 92 L (96-108) mmol/L Carbon Dioxide 23 (22-29) mmol/L Anion Gap 20 (12-20) BUN 27 H (9-16) mg/dL Creatinine 2.23 H (0.5-1.4) mg/dL Estim Creat Clear Calc 26.8 Estimated GFR 28 Random Glucose 414 H* (60-115) mg/dL Calcium 8.9 (8.4-10.2) mg/dL Magnesium 2.3 (1.6-2.6) mg/dL Total Bilirubin 0.5 (0.0-1.0) mg/dL Direct Bilirubin 0.2 (0.0-0.5) mg/dL AST 25 (5-37) U/L ALT 11 (0-40) U/L Alkaline Phosphatase 181 H (39-117) U/L Total Protein 7.1 (6.5-8.0) g/dL Albumin 3.4 L (3.5-5.0) g/dL Urine Color Urine Appearance Urine pH (5.0-8.0) Ur Specific [place] (1.005-1.025) Urine Protein (NEG-TRACE) MG/DL Urine Glucose (UA) (NEG) MG/DL Urine Ketones (NEG) MG/DL Urine Blood (NEG) Urine Nitrite (NEG) Ur Leukocyte Esterase (NEG) Urine RBC (0) /HPF Urine WBC (0-4) /HPF Ur Squamous Epith Cells /LPF Amorphous Sediment /LPF Urine Bacteria /LPF Urine Mucus /LPF Acetone, Qual Small H (Negative) COVID-19 (MICHAELA) Negative (Negative) COVID-19 Clin Com See Note Influenza Type A (SIMA) (Negative) Influenza Type B (SIMA) (Negative) Influenza A & B Note 02/20/22 02/20/22 Range/Units 15:59 16:58 WBC (4.8-10.8) X10*3/uL RBC (4.60-5.80) X10*6/uL Hgb (14.0-18.0) g/dl Hct (42.0-52.0) % MCV (80.0-98.0) fL MCH (27.0-33.0) pg MCHC (31.0-36.0) g/dl RDW (11.0-16.0) % Plt Count (160-400) X10*3/uL MPV (9.4-12.4) fL Immature Gran % (Auto) (0.0-0.4) % Neut % (Auto) (45-73) % Lymph % (Auto) (20-40) % [place] % (Auto) (2-11) % Eos % (Auto) (0-4) % Baso % (Auto) (0-2) % Lymph # (Auto) (1.2-4.9) X10*3/uL [place] # (Auto) (0.1-1.2) X10*3/uL Eos # (Auto) (0.0-0.4) X10*3/uL Baso # (Auto) (0.0-0.2) X10*3/uL Abs Immat Gran (auto) (0.00-0.03) X10*3/uL Absolute Neuts (auto) (2.0-8.3) x10*3/uL Absolute Nucleated RBC (0.0-0.012) X10*3/uL Nucleated RBC % (auto) (0.0-0.2) /100WBC Sodium (135-145) mmol/L Potassium (3.3-5.1) mmol/L Chloride (96-108) mmol/L Carbon Dioxide (22-29) mmol/L Anion Gap (12-20) BUN (9-16) mg/dL Creatinine (0.5-1.4) mg/dL Estim Creat Clear Calc Estimated GFR Random Glucose (60-115) mg/dL Calcium (8.4-10.2) mg/dL Magnesium (1.6-2.6) mg/dL Total Bilirubin (0.0-1.0) mg/dL Direct Bilirubin (0.0-0.5) mg/dL AST (5-37) U/L ALT (0-40) U/L Alkaline Phosphatase (39-117) U/L Total Protein (6.5-8.0) g/dL Albumin (3.5-5.0) g/dL Urine Color YELLOW Urine Appearance HAZY Urine pH 5.5 (5.0-8.0) Ur Specific [place] 1.015 (1.005-1.025) Urine Protein 2+ H (NEG-TRACE) MG/DL Urine Glucose (UA) 250 H (NEG) MG/DL Urine Ketones 5 (NEG) MG/DL Urine Blood 3+ H (NEG) Urine Nitrite POS H (NEG) Ur Leukocyte Esterase 2+ H (NEG) Urine RBC TNTC H (0) /HPF Urine WBC TNTC H (0-4) /HPF Ur Squamous Epith Cells TRACE /LPF Amorphous Sediment 1+ /LPF Urine Bacteria 2+ /LPF Urine Mucus 1+ /LPF Acetone, Qual (Negative) COVID-19 (MICHAELA) (Negative) COVID-19 Clin Com Influenza Type A (SIMA) Negative (Negative) Influenza Type B (SIMA) Negative (Negative) Influenza A & B Note See Note Discharge Plan Discharge Clinical Impression: Acute kidney injury superimposed on CKD, Dehydration, Acute hyperglycemia Patient Disposition: Admitted As Inpatient
[2022-02-20 16:43] VITALS: BP 128/61; PULSE 93; RESP 16; TEMP 36.7; O2SAT 93
[2022-02-20] MEDS: 0.9 % Sodium Chloride 1,000 ML 999 ML IV (16:49)
[2022-02-20 17:08] LABS: Appearance Urine HAZY; Color Urine YELLOW; Glucose Urine UA 250 MG/DL (NEG); Leukocyte Esterase Urine 2+ (NEG); Nitrite Urine POS (NEG); PH 5.5 (5.0-8.0); Specific Gravity - Urine 1.015 (1.005-1.025); UACC Culture Trigger YES; Urine Blood 3+ (NEG); Urine Ketones 5 MG/DL (NEG); Urine Protein 2+ MG/DL (NEG-TRACE)
[2022-02-20 17:15] LABS: Acetone, serum QL Small (Negative)
[2022-02-20 17:15] LABS: Bacteria Urine 2+ /LPF; Mucus Urine 1+ /LPF; RBC Urine TNTC /HPF (0); Squamous Epithelial Cell Urine TRACE /LPF; WBC Urine TNTC /HPF (0-4)
[2022-02-20] MEDS: Insulin Lispro 100 UNIT/ML 3 ML VIAL SUBCUT ×2 (17:15→22:08)
[2022-02-20 17:16] LABS: Amorphous Sediment Urine 1+ /LPF
[2022-02-20] MEDS: cefTRIAXone sodium 1 GM in 0.9 % Sodium Chloride 50 ML IV (17:43)
[2022-02-20 19:25] LABS: Glucose, Whole Blood 310 mg/dL (60-115)
--- NOTE | 2022-02-20 19:49 | PM.IMHP ---
History of Present Illness Date of Service: 02/20/22 Chief Complaint: Poor oral intake 81 year male with a past medical history of hypertension, hyperlipidemia, diabetes, CKD, prostate cancer with metastatic disease to the spine on oral chemotherapy, glaucoma, dysphagia, recent admission to the hospital adult failure to thrive, renal insufficiency, noted to hydronephrosis; presented to the hospital today a chief complaint poor oral intake. Patient reports that over days he has been not eating good, attributes to not able to swallow down, mentions he has foot stuck sensation, unable to bring anything down; denies any abdominal pain; mentions he is able to swallow liquids. Denies any chest pain or palpitations. Denies any fever chills cough. Patient also mentions that he was going to the bathroom with the help of his walker early in the morning; suddenly he tripped and fell over, denies any loss of consciousness; denies any hip pain, back pain, neck pain. Denies any urinary frequency or urgency. Patient reports that he had a Mcmahon catheter placed in the last admission. Family noted cloudy urine. Review of all other systems is negative except mentioned above ER course: Per ER team patient on presentation noted to be dehydrated, urinalysis abnormal consistent with UTI, given ceftriaxone-patient tolerated; also noted to have renal insufficiency; concern for dehydration. Admitted for further management. [facility] Medical History MARIALUISA (acute kidney injury) CKD (chronic kidney disease) stage 3, GFR 30-59 ml/min CKD (chronic kidney disease) stage 3, GFR 30-59 ml/min Diabetes Diabetes with retinopathy Glaucoma History of heart block HTN (hypertension) Hydronephrosis Legally blind Pertinent family history: Patient unable to recall information Surgical History Status post cardiac pacemaker procedure Social History Household Members: Spouse Housing: Assisted Living Facility Do you presently have visiting nurse or other home services: Yes Alcohol intake: never Patient Tobacco Use Status: Former Tobacco user Use of substances other than those prescribed or required for medical reasons: No Currently Displaying Signs/Symptoms of Drug Intoxication Withdrawal: No Have you been hit, kicked, punched, or otherwise hurt by someone within the past year? If so, by whom?: No Do you feel safe in your current relationship?: Yes Is there a partner from a previous relationship who is making you feel unsafe now?: No Are you made to feel afraid or neglected: No Advance Directives: No Advance Directives Information Provided: No Do you have a plan to hurt others: No Plan Recently lost weight without trying: No Nutrition Risks: Difficulty swallowing Poor oral hygiene: No service: Yes Current occupational status: retired Meds Allergies Allergy/AdvReac Type Severity Reaction Status Date / Time Penicillins [PCN] Allergy Unknown UNKNOWN Verified 02/05/22 19:43 Active Medications: Current Medications Acetaminophen (Acetaminophen 325 Mg Tablet) 650 mg PO Q6H PRN PRN Reason: Pain, Mild (Pain Scale 1-3) Dextrose (Dextrose 50 % 25 Gm/50 Ml Syringe) 25 gm IVPUSH Q15M PRN; Protocol PRN Reason: per Hypoglycemia Standing Ord. Enoxaparin Sodium (Enoxaparin Sodium 40 Mg/0.4 Ml Syringe) 40 mg SUBCUT Q24H ALESSIO Glucose (Glucose Gel 15 Gm Gel..Gram.) 15 gm PO Q15M PRN; Protocol PRN Reason: per Hypoglycemia Standing Ord. Hydromorphone HCl (Hydromorphone Hcl 1 Mg/Ml Syringe) 0.5 mg IVPUSH Q4H PRN; Protocol PRN Reason: Pain, Severe (Pain Scale 7-10) Ceftriaxone Sodium 1 gm/ (Sodium Chloride) 50 mls @ 100 mls/hr IV Q24H [facility] Insulin Human Lispro (Insulin Lispro 100 Unit/Ml 3 Ml Vial) 0 unit SUBCUT QIDACHS [facility]; Protocol Melatonin (Melatonin 3 Mg Tablet) 6 mg PO BEDTIME PRN PRN Reason: Insomnia Pharmacy Consult (Consult Rx Perform Med Rec) 1 each MISCELLANE ONCE PRN PRN Reason: Consult order Senna (Sennosides 8.6 Mg Tablet) 17.2 mg PO BEDTIME PRN PRN Reason: Constipation Sodium Chloride (0.9 % Sodium Chloride Flush 3 Ml Syringe) 3 ml IVFLUSH QSHIFT [facility] Home Medications Medication Instructions Recorded Confirmed Last Taken Type Lantus U-100 Insulin 10 units subcut BID 01/28/22 02/20/22 02/05/22 History apalutamide 60 mg tablet (Erleada) 240 mg PO DAILY@1200 01/28/22 02/20/22 02/19/22 History niacin 500 mg tablet 1 tab PO DAILY 01/28/22 02/20/22 02/05/22 History potassium chloride 20 mEq 1 tab PO DAILY 01/28/22 02/20/22 02/19/22 History tablet,extended release amlodipine 10 mg tablet 10 mg PO DAILY 01/29/22 02/20/22 02/20/22 History aspirin 81 mg tablet,delayed 81 mg PO DAILY 01/29/22 02/20/22 02/19/22 History release bimatoprost 0.01 % eye drops 1 drp ophthalmic-Right BEDTIME 01/29/22 02/20/22 02/19/22 History brimonidine 0.2 % eye drops 1 drp ophthalmic (eye) TID 01/29/22 02/20/22 02/19/22 History dorzolamide 22.3 mg-timolol 6.8 1 drp ophthalmic-Right BID 01/29/22 02/20/22 02/20/22 History mg/mL eye drops ferrous sulfate 325 mg (65 mg 325 mg PO DAILY 01/29/22 02/20/22 02/20/22 History iron) tablet insulin aspart U-100 100 unit/mL 6 unit subcut DAILY@1130 01/29/22 02/20/22 02/05/22 History (3 mL) subcutaneous pen (Novolog Flexpen U-100 Insulin aspart) insulin aspart U-100 100 unit/mL 8 unit subcut BID@0730,1630 01/29/22 02/20/22 02/05/22 History (3 mL) subcutaneous pen (Novolog Flexpen U-100 Insulin aspart) rosuvastatin 40 mg tablet 40 mg PO BEDTIME 01/29/22 02/20/22 02/19/22 History furosemide 40 mg tablet 1 tab PO BID 02/05/22 02/20/22 02/19/22 History diphenhydramine HCl 25 mg capsule 25 mg PO BID 02/20/22 02/20/22 02/20/22 History omeprazole 20 mg tablet,delayed 20 mg PO DAILY@0630 02/20/22 02/20/22 02/20/22 History release Physical Exam Vital Signs and Narrative: Vital Signs: Last Vital Signs Temp 98.0 F 02/20/22 16:43 Pulse 93 02/20/22 16:43 Resp 16 02/20/22 16:43 BP 128/61 02/20/22 16:43 Pulse Ox 93 02/20/22 16:43 O2 Del Method 02/20/22 16:43 BMI result Body Mass Index 32.1 Gen: Appears be in no acute distress HEENT: NCAT, Moist mucosa. Pulmonary: Vesicular breath sounds, fair air entry CVS: Normal S1-S2 Abdomen: BS+, Soft, Nontender Extremities: Warm well perfused Neuro: Alert and awake. Moves all extremities equally Results Labs CBC and Chem 7: 02/20/22 15:54 02/20/22 15:54 Labs: Laboratory Results - last 24 hr 02/20/22 02/20/22 02/20/22 15:54 15:54 15:59 MCV 91.1 MCH 30.4 MCHC 33.3 RDW 14.9 Plt Count 311 MPV 9.7 Immature Gran % (Auto) 0.4 Neut % (Auto) 83.9 H Lymph % (Auto) 8.5 L [place] % (Auto) 6.6 Eos % (Auto) 0.3 Baso % (Auto) 0.3 Lymph # (Auto) 0.8 L [place] # (Auto) 0.7 Eos # (Auto) 0.0 Baso # (Auto) 0.0 Abs Immat Gran (auto) 0.04 H Absolute Neuts (auto) 8.2 Absolute Nucleated RBC 0.000 Nucleated RBC % (auto) 0.0 Anion Gap 20 Estim Creat Clear Calc 26.8 Estimated GFR 28 POC Glucose Random Glucose 414 H* Calcium 8.9 Magnesium 2.3 Total Bilirubin 0.5 Direct Bilirubin 0.2 AST 25 ALT 11 Alkaline Phosphatase 181 H Total Protein 7.1 Albumin 3.4 L Urine Color Urine Appearance Urine pH Ur Specific [place] Urine Protein Urine Glucose (UA) Urine Ketones Urine Blood Urine Nitrite Ur Leukocyte Esterase Urine RBC Urine WBC Ur Squamous Epith Cells Amorphous Sediment Urine Bacteria Urine Mucus Acetone, Qual Small H COVID-19 (MICHAELA) Negative COVID-19 Clin Com See Note Influenza Type A (SIMA) Influenza Type B (SIMA) Influenza A & B Note 02/20/22 02/20/22 02/20/22 15:59 16:58 17:35 MCV MCH MCHC RDW Plt Count MPV Immature Gran % (Auto) Neut % (Auto) Lymph % (Auto) [place] % (Auto) Eos % (Auto) Baso % (Auto) Lymph # (Auto) [place] # (Auto) Eos # (Auto) Baso # (Auto) Abs Immat Gran (auto) Absolute Neuts (auto) Absolute Nucleated RBC Nucleated RBC % (auto) Anion Gap Estim Creat Clear Calc Estimated GFR POC Glucose 310 H Random Glucose Calcium Magnesium Total Bilirubin Direct Bilirubin AST ALT Alkaline Phosphatase Total Protein Albumin Urine Color YELLOW Urine Appearance HAZY Urine pH 5.5 Ur Specific [place] 1.015 Urine Protein 2+ H Urine Glucose (UA) 250 H Urine Ketones 5 Urine Blood 3+ H Urine Nitrite POS H Ur Leukocyte Esterase 2+ H Urine RBC TNTC H Urine WBC TNTC H Ur Squamous Epith Cells TRACE Amorphous Sediment 1+ Urine Bacteria 2+ Urine Mucus 1+ Acetone, Qual COVID-19 (MICHAELA) COVID-19 Clin Com Influenza Type A (SIMA) Negative Influenza Type B (SIMA) Negative Influenza A & B Note See Note Assessment and Plan (1) Acute kidney injury superimposed on CKD: Status: Acute (2) Dehydration: Status: Acute (3) Acute hyperglycemia: Status: Acute (4) UTI (urinary tract infection): Status: Acute Plan 81 year male with a past medical history of hypertension, hyperlipidemia, diabetes, CKD, prostate cancer with metastatic disease to the spine on oral chemotherapy, glaucoma, dysphagia, recent admission to the hospital adult failure to thrive, renal insufficiency, noted to hydronephrosis; presented to the hospital today a chief complaint poor oral intake/fall. Fall: Mechanical in nature. CT head showed no acute intracranial process CT C-spine showed no acute fracture but noted sclerosing lesions concerning for metastasis from the prostate. No evidence of a fracture. Fall precautions PT/OT eventually Adult failure to thrive: Patient attributes to food stuck sensation. Unable to swallow down solids. Mentions that he was able to manage sleep which a little bit. Nutrition consult Dysphagia: Patient had similar complaints in the last admission. seen by speech and Swallow, recommended regular diet with thin liquids. Unclear if extensive cervical spine osteophytes contributing to any mechanical affect. Will consult Gastroenterology. NPO Aspiration precautions NPO Aspiration precautions UTI: Patient has chronic indwelling Mcmahon placed during the last admission secondary to hydronephrosis. Continue ceftriaxone. Follow up cultures. MARIALUISA on CKD: Baseline creatinine around 1.4; creatinine on presentation was 2.2. Likely prerenal in the setting of poor oral intake. Gentle IV fluids. Mild hyponatremia: Likely low solute state. Patient on gentle IV fluids. ? Gallstone pancreatitis: As noted on the CT abdomen pelvis. Patient denies any abdominal pain. Lipase values pending. In the surgery follow-up Hydronephrosis: Also noted on the recent CT scan in January. Persistent. Patient has indwelling Mcmahon. Patient to follow-up with Dr. Naqvi for outpatient for outpatient nephrostomy tube placement. History of prostate cancer with metastasis: CT scan showed extensive metastasis to the spine-sclerotic lesions, liver lesions, lymphadenopathy. Patient on Erleada. Follows Dr. Lal. History of diabetes: Noted to be mildly hyperglycemic on presentation. Insulin sliding scale. Monitor fingerstick glucose. History of glaucoma: Continue home eye drops History of hypertension/hyperlipidemia: Continue home amlodipine, statin. Hold home Lasix for now DVT prophylaxis: Lovenox Code status: Full code Quality Stroke Does the patient have a stroke diagnosis?: No VTE Prior VTE?: No VTE Risk Level:: Medical - moderate - high VTE Device Contraindication: Treatment Not Indicated VTE Drug Contraindication: N/A - Med Ordered
[2022-02-20 20:16] VITALS: BP 115/54; PULSE 80; RESP 16; TEMP 36.8; O2SAT 98
[2022-02-20 21:12] LABS: Glucose, Whole Blood 212 mg/dL (60-115)
[2022-02-20 21:12] LABS: Glucose, Whole Blood 289 mg/dL (60-115)
[2022-02-20] MEDS: Atorvastatin Calcium 80 MG TABLET PO (21:36)
[2022-02-20] MEDS: diphenhydrAMINE HCL 25 MG TABLET PO (21:36)
[2022-02-20] MEDS: Furosemide 40 MG TABLET PO (21:36)
[2022-02-20] MEDS: Enoxaparin Sodium 30 MG/0.3 ML SYRINGE SUBCUT (21:36)
[2022-02-20 21:45] VITALS: BP 124/80; PULSE 77; RESP 16; TEMP 36.5; O2SAT 93
--- NOTE | 2022-02-20 22:37 | PC.NURSE ---
THIS RN CONTACTED PHARMACY TO SEND PT EYEDROPS
--- NOTE | 2022-02-20 22:46 | PC.NURSE ---
Patient dropping oxygen saturation in the high 80's. Patient placed on nasal cannula 2litres with good effect. Patient's hgb of 98 percent on 2l
[2022-02-20 23:41] VITALS: BP 109/60; PULSE 92; RESP 16; TEMP 36.1; O2SAT 100
[2022-02-21] MEDS: 0.9 % Sodium Chloride Flush 3 ML SYRINGE IVFLUSH ×2 (00:12→08:22)
[2022-02-21 00:55] LABS: Lipase 50 U/L (8-78)
[2022-02-21 03:10] VITALS: BP 124/65; PULSE 69; RESP 16; TEMP 36.5; O2SAT 100
[2022-02-21 06:48] LABS: MANUAL DIFF FLAG NO
[2022-02-21 06:53] LABS: Basophils Absolute Auto 0.1 X10*3/uL (0.0-0.2); Eosinophils Absolute Auto 0.2 X10*3/uL (0.0-0.4); Eosinophils Percent Auto 2.9 % (0-4); Hematocrit 33.5 % (42.0-52.0); Imm Gran Abs Auto 0.01 X10*3/uL (0.00-0.03); Imm Gran Pct Auto 0.2 % (0.0-0.4); Lymphocytes Absolute Auto 1.3 X10*3/uL (1.2-4.9); Lymphocytes Percent Auto 24.1 % (20-40); Mean Corpuscular HGB Conc 32.8 g/dl (31.0-36.0); Mean Corpuscular Hemoglobin 30.1 pg (27.0-33.0); Mean Corpuscular Volume 91.8 fL (80.0-98.0); Mean Platelet Volume 9.6 fL (9.4-12.4); Monocytes Absolute Auto 0.5 X10*3/uL (0.1-1.2); Monocytes Percent Auto 9.6 % (2-11); Neutrophils Absolute Auto 3.3 x10*3/uL (2.0-8.3); Neutrophils Percent Auto 62.2 % (45-73); Platelet Count 290 X10*3/uL (160-400); Red Blood Count 3.65 X10*6/uL (4.60-5.80); Red Cell Distribution Width 14.8 % (11.0-16.0); White Blood Count 5.2 X10*3/uL (4.8-10.8)
[2022-02-21 07:25] VITALS: BP 143/65; PULSE 88; RESP 18; TEMP 36.3; O2SAT 100
[2022-02-21 07:26] LABS: Anion Gap 16 (12-20); Blood Urea Nitrogen 21 mg/dL (9-16); Calcium 8.8 mg/dL (8.4-10.2); Carbon Dioxide 26 mmol/L (22-29); Chloride 99 mmol/L (96-108); Creatinine Clr Calc Pharmacy 37.9; Estimated Glomerular Filt Rate 42; Glucose Random 154 mg/dL (60-115); Potassium 3.8 mmol/L (3.3-5.1); Sodium 137 mmol/L (135-145)
[2022-02-21 07:31] LABS: Glucose, Whole Blood 154 mg/dL (60-115)
[2022-02-21] MEDS: diphenhydrAMINE HCL 25 MG TABLET PO ×2 (08:21→20:01)
[2022-02-21] MEDS: Furosemide 40 MG TABLET PO ×2 (08:21→20:01)
[2022-02-21] MEDS: Potassium Chloride ER 20 MEQ TAB.ER.PRT PO (08:21)
[2022-02-21] MEDS: Insulin Lispro 100 UNIT/ML 3 ML VIAL SUBCUT ×3 (08:21→21:12)
[2022-02-21] MEDS: Ferrous Sulfate 324 MG TABLET.DR PO (08:21)
[2022-02-21] MEDS: Aspirin Enteric Coated 81 MG TABLET.DR PO (08:21)
[2022-02-21] MEDS: Brimonidine Tartrate 0.2% Oph 5 ML BOTTLE 1 DROP EYE-BOTH ×3 (08:22→21:23)
[2022-02-21] MEDS: Dorzolamide/Timolo 2.23%/0.68% 10 ML DRBTL 1 DROP EYE-RIGHT ×2 (08:22→21:23)
[2022-02-21] MEDS: Acetaminophen 325 MG TABLET 650 MG PO (08:28)
--- NOTE | 2022-02-21 09:16 | P.PNIM_ITS ---
Subjective Subjective Date of Service: 02/21/22 Interval History: Seen in f/u for all, renal failure, adult failure to thrive Interval history: feels somehow better, renal function is improving, feels as if something in throat but takes pills ok Review of Systems Gen: no fever Resp: no sob, no cough CV: no chest, no BOWERS, no leg edema GI: No n/v, no abd pain Neuro: No confusion Physical Exam Vital Signs: Vital Signs: Last Vital Signs Temp 97.4 F 02/21/22 07:25 Pulse 88 02/21/22 07:25 Resp 18 02/21/22 07:25 BP 143/65 H 02/21/22 07:25 Pulse Ox 100 02/21/22 07:25 O2 Del Method 02/21/22 07:25 O2 Flow Rate 2 02/21/22 07:25 BMI result Body Mass Index 32.1 Const: Other: General: AO X 3, no acute distress Resp:? CTA bilateral CVS: S1,S2,RRR GI: +BS, NT, no distention Skin: chronic stasis dermatitis, ,left leg is bigger than the rigght from vein graft long ago Neuro:? motor grossly intact Psych: appropriate affect Objective Data Active Medications Acetaminophen (Acetaminophen 325 Mg Tablet) 650 mg PO Q6H PRN PRN Reason: Pain, Mild (Pain Scale 1-3) Last Admin: 02/21/22 08:28 Dose: 650 mg Documented By: JULIANA Aspirin (Aspirin Enteric Coated 81 Mg Tablet.) 81 mg PO DAILY [facility] Last Admin: 02/21/22 08:21 Dose: 81 mg Documented By: JULIANA Atorvastatin Calcium (Atorvastatin Calcium 80 Mg Tablet) 80 mg PO BEDTIME [facility] Last Admin: 02/20/22 21:36 Dose: 80 mg Documented By: CHAPINCITO Brimonidine Tartrate (Brimonidine Tartrate 0.2% Oph 5 Ml Bottle) 1 drop EYE- BOTH TID [facility] Last Admin: 02/21/22 08:22 Dose: 1 drop Documented By: JULIANA Dextrose (Dextrose 50 % 25 Gm/50 Ml Syringe) 25 gm IVPUSH Q15M PRN; Protocol PRN Reason: per Hypoglycemia Standing Ord. Diphenhydramine HCl (Diphenhydramine Hcl 25 Mg Tablet) 25 mg PO BID [facility] Last Admin: 02/21/22 08:21 Dose: 25 mg Documented By: JULIANA Dorzolamide/Timolol (Dorzolamide/Timolo 2.23%/0.68% 10 Ml Drbtl) 1 drop EYE- RIGHT BID [facility] Last Admin: 02/21/22 08:22 Dose: 1 drop Documented By: JULIANA Enoxaparin Sodium (Enoxaparin Sodium 30 Mg/0.3 Ml Syringe) 30 mg SUBCUT Q24H [facility] Last Admin: 02/20/22 21:36 Dose: 30 mg Documented By: CHAPINCITO Ferrous Sulfate (Ferrous Sulfate 324 Mg Tablet.) 324 mg PO DAILY [facility] Last Admin: 02/21/22 08:21 Dose: 324 mg Documented By: JULIANA Furosemide (Furosemide 40 Mg Tablet) 40 mg PO BID [facility]; Protocol Last Admin: 02/21/22 08:21 Dose: 40 mg Documented By: JULIANA Glucose (Glucose Gel 15 Gm Gel..Gram.) 15 gm PO Q15M PRN; Protocol PRN Reason: per Hypoglycemia Standing Ord. Hydromorphone HCl (Hydromorphone Hcl 1 Mg/Ml Syringe) 0.5 mg IVPUSH Q4H PRN; Protocol PRN Reason: Pain, Severe (Pain Scale 7-10) Ceftriaxone Sodium 1 gm/ (Sodium Chloride) 50 mls @ 100 mls/hr IV Q24H [facility] Insulin Human Lispro (Insulin Lispro 100 Unit/Ml 3 Ml Vial) 0 unit SUBCUT QIDACHS [facility]; Protocol Last Admin: 02/21/22 08:21 Dose: 2 unit Documented By: JULIANA Melatonin (Melatonin 3 Mg Tablet) 6 mg PO BEDTIME PRN PRN Reason: Insomnia Non-Formulary Medication (Apalutamide [Erleada]) 240 mg PO DAILY@1200 [facility] Non-Formulary Medication (Bimatoprost) 1 drop EYE-RIGHT BEDTIME [facility] Non-Formulary Medication (Niacin) 1 tab PO DAILY [facility] Omeprazole (Omeprazole 20 Mg Capsule.) 20 mg PO DAILY@0630 [facility] Last Admin: 02/21/22 05:32 Dose: Not Given Documented By: CONNER Non-Admin Reason: NPO Pharmacy Consult (Consult Rx Perform Med Rec) 1 each MISCELLANE ONCE PRN PRN Reason: Consult order Potassium Chloride (Potassium Chloride Er 20 Meq Tab.Er.Prt) 20 meq PO DAILY [facility] Last Admin: 02/21/22 08:21 Dose: 20 meq Documented By: JULIANA Senna (Sennosides 8.6 Mg Tablet) 17.2 mg PO BEDTIME PRN PRN Reason: Constipation Sodium Chloride (0.9 % Sodium Chloride Flush 3 Ml Syringe) 3 ml IVFLUSH QSHIFT [facility] Last Admin: 02/21/22 08:22 Dose: 3 ml Documented By: JULIANA Labs CBC & Chem 7: 02/21/22 06:18 02/21/22 06:18 Labs: Laboratory Results - last 24 hr 02/20/22 02/20/22 02/20/22 15:54 15:54 15:59 MCV 91.1 MCH 30.4 MCHC 33.3 RDW 14.9 Plt Count 311 MPV 9.7 Immature Gran % (Auto) 0.4 Neut % (Auto) 83.9 H Lymph % (Auto) 8.5 L [place] % (Auto) 6.6 Eos % (Auto) 0.3 Baso % (Auto) 0.3 Lymph # (Auto) 0.8 L [place] # (Auto) 0.7 Eos # (Auto) 0.0 Baso # (Auto) 0.0 Abs Immat Gran (auto) 0.04 H Absolute Neuts (auto) 8.2 Absolute Nucleated RBC 0.000 Nucleated RBC % (auto) 0.0 Anion Gap 20 Estim Creat Clear Calc 26.8 Estimated GFR 28 POC Glucose Random Glucose 414 H* Calcium 8.9 Magnesium 2.3 Total Bilirubin 0.5 Direct Bilirubin 0.2 AST 25 ALT 11 Alkaline Phosphatase 181 H Total Protein 7.1 Albumin 3.4 L Lipase 50 Urine Color Urine Appearance Urine pH Ur Specific [place] Urine Protein Urine Glucose (UA) Urine Ketones Urine Blood Urine Nitrite Ur Leukocyte Esterase Urine RBC Urine WBC Ur Squamous Epith Cells Amorphous Sediment Urine Bacteria Urine Mucus Acetone, Qual Small H COVID-19 (MICHAELA) Negative COVID-19 Clin Com See Note Influenza Type A (SIMA) Influenza Type B (SIMA) Influenza A & B Note 02/20/22 02/20/22 02/20/22 15:59 16:58 17:35 MCV MCH MCHC RDW Plt Count MPV Immature Gran % (Auto) Neut % (Auto) Lymph % (Auto) C[place] % (Auto) Eos % (Auto) Baso % (Auto) Lymph # (Auto) [place] # (Auto) Eos # (Auto) Baso # (Auto) Abs Immat Gran (auto) Absolute Neuts (auto) Absolute Nucleated RBC Nucleated RBC % (auto) Anion Gap Estim Creat Clear Calc Estimated GFR POC Glucose 310 H Random Glucose Calcium Magnesium Total Bilirubin Direct Bilirubin AST ALT Alkaline Phosphatase Total Protein Albumin Lipase Urine Color YELLOW Urine Appearance HAZY Urine pH 5.5 Ur Specific [place] 1.015 Urine Protein 2+ H Urine Glucose (UA) 250 H Urine Ketones 5 Urine Blood 3+ H Urine Nitrite POS H Ur Leukocyte Esterase 2+ H Urine RBC TNTC H Urine WBC TNTC H Ur Squamous Epith Cells TRACE Amorphous Sediment 1+ Urine Bacteria 2+ Urine Mucus 1+ Acetone, Qual COVID-19 (MICHAELA) COVID-19 Clin Com Influenza Type A (SIMA) Negative Influenza Type B (SIMA) Negative Influenza A & B Note See Note 02/20/22 02/20/22 02/21/22 19:31 21:07 06:18 MCV 91.8 MCH 30.1 MCHC 32.8 RDW 14.8 Plt Count 290 MPV 9.6 Immature Gran % (Auto) 0.2 Neut % (Auto) 62.2 Lymph % (Auto) 24.1 Custer % (Auto) 9.6 Eos % (Auto) 2.9 Baso % (Auto) 1.0 Lymph # (Auto) 1.3 [place] # (Auto) 0.5 Eos # (Auto) 0.2 Baso # (Auto) 0.1 Abs Immat Gran (auto) 0.01 Absolute Neuts (auto) 3.3 Absolute Nucleated RBC 0.000 Nucleated RBC % (auto) 0.0 Anion Gap Estim Creat Clear Calc Estimated GFR POC Glucose 289 H 212 H Random Glucose Calcium Magnesium Total Bilirubin Direct Bilirubin AST ALT Alkaline Phosphatase Total Protein Albumin Lipase Urine Color Urine Appearance Urine pH Ur Specific [place] Urine Protein Urine Glucose (UA) Urine Ketones Urine Blood Urine Nitrite Ur Leukocyte Esterase Urine RBC Urine WBC Ur Squamous Epith Cells Amorphous Sediment Urine Bacteria Urine Mucus Acetone, Qual COVID-19 (MICHAELA) COVID-19 Clin Com Influenza Type A (SIMA) Influenza Type B (SIMA) Influenza A & B Note 02/21/22 02/21/22 06:18 07:24 MCV MCH MCHC RDW Plt Count MPV Immature Gran % (Auto) Neut % (Auto) Lymph % (Auto) C[place] % (Auto) Eos % (Auto) Baso % (Auto) Lymph # (Auto) C[place] # (Auto) Eos # (Auto) Baso # (Auto) Abs Immat Gran (auto) Absolute Neuts (auto) Absolute Nucleated RBC Nucleated RBC % (auto) Anion Gap 16 Estim Creat Clear Calc 37.9 Estimated GFR 42 POC Glucose 154 H Random Glucose 154 H D Calcium 8.8 Magnesium Total Bilirubin Direct Bilirubin AST ALT Alkaline Phosphatase Total Protein Albumin Lipase Urine Color Urine Appearance Urine pH Ur Specific [place] Urine Protein Urine Glucose (UA) Urine Ketones Urine Blood Urine Nitrite Ur Leukocyte Esterase Urine RBC Urine WBC Ur Squamous Epith Cells Amorphous Sediment Urine Bacteria Urine Mucus Acetone, Qual COVID-19 (MICHAELA) COVID-19 Clin Com Influenza Type A (SIMA) Influenza Type B (SIMA) Influenza A & B Note Assessment and Plan (1) UTI (urinary tract infection): Status: Acute (2) Acute kidney injury superimposed on CKD: Status: Acute (3) Dehydration: Status: Acute Plan 81 year male with a past medical history of hypertension, hyperlipidemia, diabetes, CKD, 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 PT eval before DC, declined rehab last time Adult failure to thrive: Patient attributes to food stuck sensation. Unable to swallow down solids. Mentions that he was able to manage sips with small bites. Nutrition eval tuesday Dysphagia: ? Dysphagia, had no apprent difficulty swallowing during last visit. GI to reassess. NPO, IVF UTI: Patient has chronic indwelling Mcmahon placed during the last admission secondary to hydronephrosis. Continue ceftriaxone. Follow up cultures. MARIALUISA on CKD: Baseline creatinine around 1.4; Creatine 1.58 today withIV ? Gallstone pancreatitis: there is no clinical evidence of gallstone pancreaitis, lipase is normal and has no pain. Hydronephrosis: Also noted on the recent CT scan in January. Persistent. Patient has indwelling Mcmahon. Patient to follow-up with Dr. Naqvi for outpatient for outpatient nephrostomy tube placement. History of prostate cancer with metastasis: CT scan showed extensive metastasis to the spine-sclerotic lesions, liver lesions, lymphadenopathy. Patient on Erleada. Follows Dr. Lal. History of diabetes: Noted to be mildly hyperglycemic on presentation. Insulin sliding scale. Monitor glucose. History of glaucoma: Continue home eye drops History of hypertension/hyperlipidemia: Continue home amlodipine, statin. Hold home Lasix for now DVT prophylaxis: Lovenox Code status: Full code Quality Stroke Does the patient have a stroke diagnosis?: No VTE Prior VTE?: No VTE Risk Level:: Medical - moderate - high VTE Device Contraindication: Treatment Not Indicated VTE Drug Contraindication: N/A - Med Ordered
[2022-02-21 11:26] VITALS: BP 125/60; PULSE 63; RESP 18; TEMP 36.4; O2SAT 96
[2022-02-21] MEDS: Dextrose 5 % and 0.45 % NaCl 1,000 ML 80 ML IVCONT ×2 (11:28→23:44)
[2022-02-21 11:32] LABS: Glucose, Whole Blood 118 mg/dL (60-115)
--- NOTE | 2022-02-21 11:32 | PM.CNGS ---
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 He was admitted to the hospitalist service for further management. He was recently admitted with a similar problem due to his difficulty swallowing. He was placed on omeprazole last week which seemed to help for short period of time but then he began to once again have difficulty swallowing. He denies any abdominal pain but does report pain in the back pre as a pressure ulcer. Laboratories revealed normal WBC. CT of the abdomen and pelvis revealed a persistent perhaps slightly increased stranding of the soft tissue surrounding the head body of the pancreas with a small, 3 mm opaque density noted in the distal common bile duct/pancreatic duct junction. Gallstones are present within the gallbladder as well however no pericholecystic fluid or intrahepatic or extrahepatic biliary dilatation is noted. Findings are suggestive of possible gallstone pancreatitis. Review of Systems Review of Systems: Yes all other systems are reviewed and are negative Constitutional: Constitutional: Reports anorexia, Reports malaise and Reports weakness ENT: Reports dysphagia Cardiovascular: Cardiovascular: Reports dyspnea on exertion Respiratory: Respiratory: Reports dyspnea on exertion Gastrointestinal: Gastrointestinal: Denies abdominal pain and Reports dysphagia Genitourinary: Genitourinary: Reports as per HPI Musculoskeletal: Musculoskeletal: Reports back pain and Reports myalgias Integumentary/Breasts: Skin/Breast: Reports skin ulcer Neurologic: Reports weakness Hematologic/Lymphatic: Hematologic/Lymphatic: Reports as per HPI [facility] Past Medical History Medical History MARIALUISA (acute kidney injury) CKD (chronic kidney disease) stage 3, GFR 30-59 ml/min CKD (chronic kidney disease) stage 3, GFR 30-59 ml/min Diabetes Diabetes with retinopathy Glaucoma History of heart block HTN (hypertension) Hydronephrosis Legally blind Surgical History Surgical History Status post cardiac pacemaker procedure Social History Social History Household Members: Spouse Housing: Assisted Living Facility Do you presently have visiting nurse or other home services: Yes Alcohol intake: never Patient Tobacco Use Status: Former Tobacco user Use of substances other than those prescribed or required for medical reasons: No Currently Displaying Signs/Symptoms of Drug Intoxication Withdrawal: No Have you been hit, kicked, punched, or otherwise hurt by someone within the past year? If so, by whom?: No Do you feel safe in your current relationship?: Yes Is there a partner from a previous relationship who is making you feel unsafe now?: No Are you made to feel afraid or neglected: No Advance Directives: No Advance Directives Information Provided: No Do you have a plan to hurt others: No Plan Recently lost weight without trying: No Nutrition Risks: Difficulty swallowing Poor oral hygiene: No service: Yes Current occupational status: retired [employer] Allergies Allergy/AdvReac Type Severity Reaction Status Date / Time Penicillins [PCN] Allergy Unknown UNKNOWN Verified 02/05/22 19:43 Active Medications: Current Medications Acetaminophen (Acetaminophen 325 Mg Tablet) 650 mg PO Q6H PRN PRN Reason: Pain, Mild (Pain Scale 1-3) Last Admin: 02/21/22 08:28 Dose: 650 mg Aspirin (Aspirin Enteric Coated 81 Mg Tablet.Dr) 81 mg PO DAILY [facility] Last Admin: 02/21/22 08:21 Dose: 81 mg Atorvastatin Calcium (Atorvastatin Calcium 80 Mg Tablet) 80 mg PO BEDTIME [facility] Last Admin: 02/20/22 21:36 Dose: 80 mg Brimonidine Tartrate (Brimonidine Tartrate 0.2% Oph 5 Ml Bottle) 1 drop EYE-BOTH TID [facility] Last Admin: 02/21/22 08:22 Dose: 1 drop Dextrose (Dextrose 50 % 25 Gm/50 Ml Syringe) 25 gm IVPUSH Q15M PRN; Protocol PRN Reason: per Hypoglycemia Standing Ord. Diphenhydramine HCl (Diphenhydramine Hcl 25 Mg Tablet) 25 mg PO BID [facility] Last Admin: 02/21/22 08:21 Dose: 25 mg Dorzolamide/Timolol (Dorzolamide/Timolo 2.23%/0.68% 10 Ml Drbtl) 1 drop EYE-RIGHT BID [facility] Last Admin: 02/21/22 08:22 Dose: 1 drop Enoxaparin Sodium (Enoxaparin Sodium 30 Mg/0.3 Ml Syringe) 30 mg SUBCUT Q24H [facility] Last Admin: 02/20/22 21:36 Dose: 30 mg Ferrous Sulfate (Ferrous Sulfate 324 Mg Tablet.) 324 mg PO DAILY [facility] Last Admin: 02/21/22 08:21 Dose: 324 mg Furosemide (Furosemide 40 Mg Tablet) 40 mg PO BID [facility]; Protocol Last Admin: 02/21/22 08:21 Dose: 40 mg Glucose (Glucose Gel 15 Gm Gel..Gram.) 15 gm PO Q15M PRN; Protocol PRN Reason: per Hypoglycemia Standing Ord. Hydromorphone HCl (Hydromorphone Hcl 1 Mg/Ml Syringe) 0.5 mg IVPUSH Q4H PRN; Protocol PRN Reason: Pain, Severe (Pain Scale 7-10) Ceftriaxone Sodium 1 gm/ (Sodium Chloride) 50 mls @ 100 mls/hr IV Q24H [facility] Dextrose/Sodium Chloride (D51/2ns) 1,000 mls @ 80 mls/hr IVCONT .[id number] [facility] Last Admin: 02/21/22 11:28 Dose: 80 mls/hr Insulin Human Lispro (Insulin Lispro 100 Unit/Ml 3 Ml Vial) 0 unit SUBCUT QIDACHS [facility]; Protocol Last Admin: 02/21/22 11:30 Dose: Not Given Melatonin (Melatonin 3 Mg Tablet) 6 mg PO BEDTIME PRN PRN Reason: Insomnia Non-Formulary Medication (Apalutamide [Erleada]) 240 mg PO DAILY@1200 [facility] Non-Formulary Medication (Bimatoprost) 1 drop EYE-RIGHT BEDTIME [facility] Non-Formulary Medication (Niacin) 1 tab PO DAILY [facility] Omeprazole (Omeprazole 20 Mg Capsule.) 20 mg PO DAILY@0630 [facility] Last Admin: 02/21/22 05:32 Dose: Not Given Pharmacy Consult (Consult Rx Perform Med Rec) 1 each MISCELLANE ONCE PRN PRN Reason: Consult order Potassium Chloride (Potassium Chloride Er 20 Meq Tab.Er.Prt) 20 meq PO DAILY [facility] Last Admin: 02/21/22 08:21 Dose: 20 meq Senna (Sennosides 8.6 Mg Tablet) 17.2 mg PO BEDTIME PRN PRN Reason: Constipation Sodium Chloride (0.9 % Sodium Chloride Flush 3 Ml Syringe) 3 ml IVFLUSH QSHIFT [facility] Last Admin: 02/21/22 08:22 Dose: 3 ml Home Medications Medication Instructions Recorded Confirmed Last Taken Type Lantus U-100 Insulin 10 units subcut BID 01/28/22 02/20/22 02/05/22 History apalutamide 60 mg tablet (Erleada) 240 mg PO DAILY@1200 01/28/22 02/20/22 02/19/22 History niacin 500 mg tablet 1 tab PO DAILY 01/28/22 02/20/22 02/05/22 History potassium chloride 20 mEq 1 tab PO DAILY 01/28/22 02/20/22 02/19/22 History tablet,extended release amlodipine 10 mg tablet 10 mg PO DAILY 01/29/22 02/20/22 02/20/22 History aspirin 81 mg tablet,delayed 81 mg PO DAILY 01/29/22 02/20/22 02/19/22 History release bimatoprost 0.01 % eye drops 1 drp ophthalmic-Right BEDTIME 01/29/22 02/20/22 02/19/22 History brimonidine 0.2 % eye drops 1 drp ophthalmic (eye) TID 01/29/22 02/20/22 02/19/22 History dorzolamide 22.3 mg-timolol 6.8 1 drp ophthalmic-Right BID 01/29/22 02/20/22 02/20/22 History mg/mL eye drops ferrous sulfate 325 mg (65 mg 325 mg PO DAILY 01/29/22 02/20/22 02/20/22 History iron) tablet insulin aspart U-100 100 unit/mL 6 unit subcut DAILY@1130 01/29/22 02/20/22 02/05/22 History (3 mL) subcutaneous pen (Novolog Flexpen U-100 Insulin aspart) insulin aspart U-100 100 unit/mL 8 unit subcut BID@0730,1630 01/29/22 02/20/22 02/05/22 History (3 mL) subcutaneous pen (Novolog Flexpen U-100 Insulin aspart) rosuvastatin 40 mg tablet 40 mg PO BEDTIME 01/29/22 02/20/22 02/19/22 History furosemide 40 mg tablet 1 tab PO BID 02/05/22 02/20/22 02/19/22 History diphenhydramine HCl 25 mg capsule 25 mg PO BID 02/20/22 02/20/22 02/20/22 History omeprazole 20 mg tablet,delayed 20 mg PO DAILY@0630 02/20/22 02/20/22 02/20/22 History release Physical Exam Vital Signs: Vital Signs: Last Vital Signs Temp 97.5 F 02/21/22 11:26 Pulse 63 02/21/22 11:26 Resp 18 02/21/22 11:26 BP 125/60 02/21/22 11:26 Pulse Ox 96 02/21/22 11:26 O2 Del Method 02/21/22 11:26 O2 Flow Rate 2 02/21/22 07:25 BMI result Body Mass Index 32.1 Const: General: awake and ill appearing Nutritional Appearance: malnourished Orientation/consciousness: patient oriented x3 Eyes: Sclerae: sclerae normal EOM: EOMs intact bilaterally Resp: Effort & Inspection: normal respiratory effort GI: Inspection: Yes normal to inspection Palpation (GI): Soft to palpation, nontender, no guarding, not rigid and No Rebound tenderness present Percussion: Yes normal to percussion Auscultation: normal bowel sounds Rectal Exam - Male: Yes deferred Neuro: General: patient oriented x3 Results Labs Result diagrams: 02/21/22 06:18 02/21/22 06:18 Labs: Abnormal lab results 02/20/22 02/20/22 02/20/22 Range/Units 15:54 15:54 16:58 RBC 4.15 L (4.60-5.80) X10*6/uL Hgb 12.6 L (14.0-18.0) g/dl Hct 37.8 L (42.0-52.0) % Neut % (Auto) 83.9 H (45-73) % Lymph % (Auto) 8.5 L (20-40) % Lymph # (Auto) 0.8 L (1.2-4.9) X10*3/uL Abs Immat Gran (auto) 0.04 H (0.00-0.03) X10*3/uL Sodium 130 L (135-145) mmol/L Chloride 92 L (96-108) mmol/L BUN 27 H (9-16) mg/dL Creatinine 2.23 H (0.5-1.4) mg/dL POC Glucose (60-115) mg/dL Random Glucose 414 H* (60-115) mg/dL Alkaline Phosphatase 181 H (39-117) U/L Albumin 3.4 L (3.5-5.0) g/dL Urine Protein 2+ H (NEG-TRACE) MG/DL Urine Glucose (UA) 250 H (NEG) MG/DL Urine Blood 3+ H (NEG) Urine Nitrite POS H (NEG) Ur Leukocyte Esterase 2+ H (NEG) Urine RBC TNTC H (0) /HPF Urine WBC TNTC H (0-4) /HPF Acetone, Qual Small H (Negative) 02/20/22 02/20/22 02/20/22 Range/Units 17:35 19:31 21:07 RBC (4.60-5.80) X10*6/uL Hgb (14.0-18.0) g/dl Hct (42.0-52.0) % Neut % (Auto) (45-73) % Lymph % (Auto) (20-40) % Lymph # (Auto) (1.2-4.9) X10*3/uL Abs Immat Gran (auto) (0.00-0.03) X10*3/uL Sodium (135-145) mmol/L Chloride (96-108) mmol/L BUN (9-16) mg/dL Creatinine (0.5-1.4) mg/dL POC Glucose 310 H 289 H 212 H (60-115) mg/dL Random Glucose (60-115) mg/dL Alkaline Phosphatase (39-117) U/L Albumin (3.5-5.0) g/dL Urine Protein (NEG-TRACE) MG/DL Urine Glucose (UA) (NEG) MG/DL Urine Blood (NEG) Urine Nitrite (NEG) Ur Leukocyte Esterase (NEG) Urine RBC (0) /HPF Urine WBC (0-4) /HPF Acetone, Qual (Negative) 02/21/22 02/21/22 02/21/22 Range/Units 06:18 06:18 07:24 RBC 3.65 L (4.60-5.80) X10*6/uL Hgb 11.0 L (14.0-18.0) g/dl Hct 33.5 L (42.0-52.0) % Neut % (Auto) (45-73) % Lymph % (Auto) (20-40) % Lymph # (Auto) (1.2-4.9) X10*3/uL Abs Immat Gran (auto) (0.00-0.03) X10*3/uL Sodium (135-145) mmol/L Chloride (96-108) mmol/L BUN 21 H (9-16) mg/dL Creatinine 1.58 H (0.5-1.4) mg/dL POC Glucose 154 H (60-115) mg/dL Random Glucose 154 H D (60-115) mg/dL Alkaline Phosphatase (39-117) U/L Albumin (3.5-5.0) g/dL Urine Protein (NEG-TRACE) MG/DL Urine Glucose (UA) (NEG) MG/DL Urine Blood (NEG) Urine Nitrite (NEG) Ur Leukocyte Esterase (NEG) Urine RBC (0) /HPF Urine WBC (0-4) /HPF Acetone, Qual (Negative) Short CBC 02/20/22 02/21/22 Range/Units 15:54 06:18 WBC 9.8 5.2 (4.8-10.8) X10*3/uL Hgb 12.6 L 11.0 L (14.0-18.0) g/dl Hct 37.8 L 33.5 L (42.0-52.0) % Plt Count 311 290 (160-400) X10*3/uL BMP 02/20/22 02/21/22 15:54 06:18 Sodium 130 L 137 Potassium 5.0 D 3.8 D Chloride 92 L 99 Carbon Dioxide 23 26 BUN 27 H 21 H Creatinine 2.23 H 1.58 H Calcium 8.9 8.8 Liver Function 02/20/22 Range/Units 15:54 Total Bilirubin 0.5 (0.0-1.0) mg/dL Direct Bilirubin 0.2 (0.0-0.5) mg/dL AST 25 (5-37) U/L ALT 11 (0-40) U/L Alkaline Phosphatase 181 H (39-117) U/L Albumin 3.4 L (3.5-5.0) g/dL Urine 02/20/22 Range/Units 16:58 Urine Color YELLOW Urine Appearance HAZY Urine pH 5.5 (5.0-8.0) Ur Specific Echo 1.015 (1.005-1.025) Urine Protein 2+ H (NEG-TRACE) MG/DL Urine Glucose (UA) 250 H (NEG) MG/DL All other labs normal. Imaging Abdomen CT scan report/results: image reviewed CT scan - pelvis: image reviewed Assessment and Plan (1) Dehydration: Status: Acute (2) Failure to thrive in adult: Status: Acute (3) Pancreatitis: Status: Acute Plan 81-year-old male patient with symptoms of dysphagia, weakness, failure to thrive found on CT to evaluate for hydronephrosis, to have a small nonobstructing common bile duct stone with surrounding changes suggestive of pancreatitis. Patient is asymptomatic with no apparent abdominal tenderness to deep palpation. I am uncertain if the changes seen on CT is more related to a generalized anasarca or pancreatitis. There is no evidence of downstream ductal dilatation in the common bile duct or intrahepatic ducts. Recommend GI consultation. Procedures Date of Service Date of Service: 02/21/22
[2022-02-21 15:29] VITALS: BP 111/59; PULSE 59; RESP 14; TEMP 36.6; O2SAT 96
--- NOTE | 2022-02-21 16:01 | P.CNGI_ITS ---
History of Present Illness Data of Consult Service Date: 02/21/22 [facility]ing [facility] Primary Care Provider: Unknown Physician HPI Reason for consult: dysphagia 81 year male with a past medical history of hypertension, hyperlipidemia, diabetes, CKD, prostate cancer with metastatic disease to the spine and hydronephrosis on oral chemotherapy, glaucoma, dysphagia, who i am seeing for assessment. Patient was admitted few weeks back for simialr reason with failure to thrive and dysphagia, he had bedside assessment and was able to eat normally. He was managing well at home till few days where he had poor appetite and had sensation of food sticking but no problem with liquids. Denies any chest pain or palpitations.? Denies any fever chills cough.?No abdominal pain, fever or chills His urine o/p from gill seemed more cloudy and he had abn UA here so now on ABX. Imaging with sclerotic mets, possible gallstone pancreatitis, hydronephrosis Review of Systems Review of Systems: Yes all other systems are reviewed and are negative Constitutional: Constitutional: Reports anorexia, Reports malaise and Reports weakness ENT: Reports dysphagia Cardiovascular: Cardiovascular: Reports dyspnea on exertion Respiratory: Respiratory: Reports dyspnea on exertion Gastrointestinal: Gastrointestinal: Denies abdominal pain and Reports dysphagia Genitourinary: Genitourinary: Reports as per HPI Musculoskeletal: Musculoskeletal: Reports back pain and Reports myalgias Integumentary/Breasts: Skin/Breast: Reports skin ulcer Neurologic: Denies Abnormal speech present and Reports weakness Hematologic/Lymphatic: Hematologic/Lymphatic: Reports as per HPI [facility] Past Medical History Medical History MARIALUISA (acute kidney injury) CKD (chronic kidney disease) stage 3, GFR 30-59 ml/min CKD (chronic kidney disease) stage 3, GFR 30-59 ml/min Diabetes Diabetes with retinopathy Glaucoma History of heart block HTN (hypertension) Hydronephrosis Legally blind Family History Pertinent family history: no fh of pancreatitis Surgical History Surgical History Status post cardiac pacemaker procedure Social History Social History Household Members: Spouse Housing: Assisted Living Facility Do you presently have visiting nurse or other home services: Yes Alcohol intake: never Patient Tobacco Use Status: Former Tobacco user Use of substances other than those prescribed or required for medical reasons: No Currently Displaying Signs/Symptoms of Drug Intoxication Withdrawal: No Have you been hit, kicked, punched, or otherwise hurt by someone within the past year? If so, by whom?: No Do you feel safe in your current relationship?: Yes Is there a partner from a previous relationship who is making you feel unsafe now?: No Are you made to feel afraid or neglected: No Advance Directives: No Advance Directives Information Provided: No Do you have a plan to hurt others: No Plan Recently lost weight without trying: No Nutrition Risks: Difficulty swallowing Poor oral hygiene: No service: Yes Current occupational status: retired [employer] Allergies Allergy/AdvReac Type Severity Reaction Status Date / Time Penicillins [PCN] Allergy Unknown UNKNOWN Verified 02/05/22 19:43 Active Medications: Current Medications Acetaminophen (Acetaminophen 325 Mg Tablet) 650 mg PO Q6H PRN PRN Reason: Pain, Mild (Pain Scale 1-3) Last Admin: 02/21/22 08:28 Dose: 650 mg Aspirin (Aspirin Enteric Coated 81 Mg Tablet.Dr) 81 mg PO DAILY [facility] Last Admin: 02/21/22 08:21 Dose: 81 mg Atorvastatin Calcium (Atorvastatin Calcium 80 Mg Tablet) 80 mg PO BEDTIME [facility] Last Admin: 02/20/22 21:36 Dose: 80 mg Brimonidine Tartrate (Brimonidine Tartrate 0.2% Oph 5 Ml Bottle) 1 drop EYE- BOTH TID [facility] Last Admin: 02/21/22 14:31 Dose: 1 drop Dextrose (Dextrose 50 % 25 Gm/50 Ml Syringe) 25 gm IVPUSH Q15M PRN; Protocol PRN Reason: per Hypoglycemia Standing Ord. Diphenhydramine HCl (Diphenhydramine Hcl 25 Mg Tablet) 25 mg PO BID [facility] Last Admin: 02/21/22 08:21 Dose: 25 mg Dorzolamide/Timolol (Dorzolamide/Timolo 2.23%/0.68% 10 Ml Drbtl) 1 drop EYE- RIGHT BID [facility] Last Admin: 02/21/22 08:22 Dose: 1 drop Enoxaparin Sodium (Enoxaparin Sodium 30 Mg/0.3 Ml Syringe) 30 mg SUBCUT Q24H [facility] Last Admin: 02/20/22 21:36 Dose: 30 mg Ferrous Sulfate (Ferrous Sulfate 324 Mg Tablet.) 324 mg PO DAILY [facility] Last Admin: 02/21/22 08:21 Dose: 324 mg Furosemide (Furosemide 40 Mg Tablet) 40 mg PO BID [facility]; Protocol Last Admin: 02/21/22 08:21 Dose: 40 mg Glucose (Glucose Gel 15 Gm Gel..Gram.) 15 gm PO Q15M PRN; Protocol PRN Reason: per Hypoglycemia Standing Ord. Hydromorphone HCl (Hydromorphone Hcl 1 Mg/Ml Syringe) 0.5 mg IVPUSH Q4H PRN; Protocol PRN Reason: Pain, Severe (Pain Scale 7-10) Ceftriaxone Sodium 1 gm/ (Sodium Chloride) 50 mls @ 100 mls/hr IV Q24H [facility] Dextrose/Sodium Chloride (D51/2ns) 1,000 mls @ 80 mls/hr IVCONT .[id number] [facility] Last Admin: 02/21/22 11:28 Dose: 80 mls/hr Insulin Human Lispro (Insulin Lispro 100 Unit/Ml 3 Ml Vial) 0 unit SUBCUT QIDACHS [facility]; Protocol Last Admin: 02/21/22 11:30 Dose: Not Given Melatonin (Melatonin 3 Mg Tablet) 6 mg PO BEDTIME PRN PRN Reason: Insomnia Non-Formulary Medication (Apalutamide [Erleada]) 240 mg PO DAILY@1200 [facility] Non-Formulary Medication (Bimatoprost) 1 drop EYE-RIGHT BEDTIME [facility] Non-Formulary Medication (Niacin) 1 tab PO DAILY [facility] Omeprazole (Omeprazole 20 Mg Capsule.) 20 mg PO DAILY@0630 [facility] Last Admin: 02/21/22 05:32 Dose: Not Given Pharmacy Consult (Consult Rx Perform Med Rec) 1 each MISCELLANE ONCE PRN PRN Reason: Consult order Potassium Chloride (Potassium Chloride Er 20 Meq Tab.Er.Prt) 20 meq PO DAILY [facility] Last Admin: 02/21/22 08:21 Dose: 20 meq Senna (Sennosides 8.6 Mg Tablet) 17.2 mg PO BEDTIME PRN PRN Reason: Constipation Sodium Chloride (0.9 % Sodium Chloride Flush 3 Ml Syringe) 3 ml IVFLUSH QSHIFT [facility] Last Admin: 02/21/22 08:22 Dose: 3 ml Home Medications Medication Instructions Recorded Confirmed Last Taken Type Lantus U-100 Insulin 10 units subcut BID 01/28/22 02/20/22 02/05/22 History apalutamide 60 mg tablet (Erleada) 240 mg PO DAILY@1200 01/28/22 02/20/22 02/19/22 History niacin 500 mg tablet 1 tab PO DAILY 01/28/22 02/20/22 02/05/22 History potassium chloride 20 mEq 1 tab PO DAILY 01/28/22 02/20/22 02/19/22 History tablet,extended release amlodipine 10 mg tablet 10 mg PO DAILY 01/29/22 02/20/22 02/20/22 History aspirin 81 mg tablet,delayed 81 mg PO DAILY 01/29/22 02/20/22 02/19/22 History release bimatoprost 0.01 % eye drops 1 drp ophthalmic-Right BEDTIME 01/29/22 02/20/22 02/19/22 History brimonidine 0.2 % eye drops 1 drp ophthalmic (eye) TID 01/29/22 02/20/22 02/19/22 History dorzolamide 22.3 mg-timolol 6.8 1 drp ophthalmic-Right BID 01/29/22 02/20/22 02/20/22 History mg/mL eye drops ferrous sulfate 325 mg (65 mg 325 mg PO DAILY 01/29/22 02/20/22 02/20/22 History iron) tablet insulin aspart U-100 100 unit/mL 6 unit subcut DAILY@1130 01/29/22 02/20/22 02/05/22 History (3 mL) subcutaneous pen (Novolog Flexpen U-100 Insulin aspart) insulin aspart U-100 100 unit/mL 8 unit subcut BID@0730,1630 01/29/22 02/20/22 02/05/22 History (3 mL) subcutaneous pen (Novolog Flexpen U-100 Insulin aspart) rosuvastatin 40 mg tablet 40 mg PO BEDTIME 01/29/22 02/20/22 02/19/22 History furosemide 40 mg tablet 1 tab PO BID 02/05/22 02/20/22 02/19/22 History diphenhydramine HCl 25 mg capsule 25 mg PO BID 02/20/22 02/20/22 02/20/22 History omeprazole 20 mg tablet,delayed 20 mg PO DAILY@0630 02/20/22 02/20/22 02/20/22 History release Physical Exam Vital Signs: Vital Signs: Last Vital Signs Temp 97.8 F 02/21/22 15:29 Pulse 59 02/21/22 15:29 Resp 14 02/21/22 15:29 BP 111/59 L 02/21/22 15:29 Pulse Ox 96 02/21/22 15:29 O2 Del Method 02/21/22 15:29 O2 Flow Rate 2 02/21/22 07:25 BMI result Body Mass Index 32.1 Const: General: cooperative, no acute distress, awake and ill appearing Nutritional Appearance: malnourished Orientation/consciousness: patient oriented x3 Limitations: no limitations HEENT: Head: Yes normal to inspection and Yes atraumatic Ears: hearing grossly normal bilaterally General nose exam: Normal external nose present Face and sinus: Yes normal facial exam Eyes: General: appearance normal, both eyes and all related structures Sclerae: sclerae normal EOM: EOMs intact bilaterally Neck: Neck: Yes normal visual inspection and Yes no meningeal signs Resp: Effort & Inspection: normal respiratory effort and no respiratory distress Auscultation: clear to auscultation bilaterally, no crackles, no rales, no rhonchi and no wheezes Cardio: Rate: regular rate Heart sounds: S1 normal heart sound present and S2 normal heart sound present GI: Inspection: Yes normal to inspection Palpation (GI): Soft to palpation, nontender, no guarding, not rigid and No Rebound tenderness present Percus wyatt: Yes normal to percussion Auscultation: normal bowel sounds Rectal Exam - Male: Yes deferred Skin: Wounds: no wounds Neuro: General: patient oriented x3, tone normal, moves all extremities, no meningeal signs, no focal motor deficits and CN's II-XI intact bilaterally Cognition (Neuro): normal cognition Speech: No Abnormal speech present Extrem: Other: Chronic lower extremity skin changes, no warmth or active cellulitis. Left lower extremity with chronic pitting edema per patient Results Labs CBC & Chem 7: 02/21/22 06:18 02/21/22 06:18 Labs: Short CBC 02/21/22 Range/Units 06:18 WBC 5.2 (4.8-10.8) X10*3/uL Hgb 11.0 L (14.0-18.0) g/dl Hct 33.5 L (42.0-52.0) % Plt Count 290 (160-400) X10*3/uL BMP 02/20/22 02/21/22 15:54 06:18 Sodium 130 L 137 Potassium 5.0 D 3.8 D Chloride 92 L 99 Carbon Dioxide 23 26 BUN 27 H 21 H Creatinine 2.23 H 1.58 H Calcium 8.9 8.8 Liver Function 02/20/22 Range/Units 15:54 Total Bilirubin 0.5 (0.0-1.0) mg/dL Direct Bilirubin 0.2 (0.0-0.5) mg/dL AST 25 (5-37) U/L ALT 11 (0-40) U/L Alkaline Phosphatase 181 H (39-117) U/L Albumin 3.4 L (3.5-5.0) g/dL Urine 02/20/22 Range/Units 16:58 Urine Color YELLOW Urine Appearance HAZY Urine pH 5.5 (5.0-8.0) Ur Specific [place] 1.015 (1.005-1.025) Urine Protein 2+ H (NEG-TRACE) MG/DL Urine Glucose (UA) 250 H (NEG) MG/DL Microbiology Microbiology Results: Microbiology 02/20/22 17:09 Urine Catheterized - Gill Catheter Urine Culture - Preliminary Culture in progress. Assessment and Plan (1) Failure to thrive in adult: Status: Acute (2) Pancreatitis: Status: Acute Plan 1/ FTT and dysphagia maybe related to his cancer and UTI 2/ CT imaging with ?gallstone pancreatitis, images reviewed not convinced, he has severe extensive athersoclerosis I think this is a calcified plaque maybe in splenic artery, he has no lipase elevation and no abdominal pain PLAN: 1/ bedside swallow assessment, if passes then allow clears and advance diet, if persistent issues with swallowing then BA swallow with pill study, may need EGD depending on this 2/ If develops abdo pain and elevated LFt then MRCP Procedures Date of Service Date of Service: 02/21/22
[2022-02-21 16:13] LABS: Glucose, Whole Blood 236 mg/dL (60-115)
--- NOTE | 2022-02-21 16:29 | MHC.CM.PN ---
CM MET WITH PT AND FAMILY AT BEDSIDE PT LIVES AT HOME WITH HIS AND NOW HAS [facility] ALSO [facility] WITH [facility] PCP: CORAL LEYVA HCP ON FILE COVID-19 [facility]: MODERNA X 3 IMM DELIVERED DCP HOME RESUMPTION OF [facility] AND [facility]IA [facility]ITOR SERVICES FAMILY TO TRANSPORT
[2022-02-21] MEDS: cefTRIAXone sodium 1 GM in 0.9 % Sodium Chloride 50 ML IV (17:01)
[2022-02-21 19:06] VITALS: BP 110/58; PULSE 77; RESP 14; TEMP 36.1; O2SAT 95
[2022-02-21] MEDS: Atorvastatin Calcium 80 MG TABLET PO (20:01)
[2022-02-21] MEDS: Enoxaparin Sodium 30 MG/0.3 ML SYRINGE SUBCUT (20:02)
[2022-02-21 20:30] LABS: Glucose, Whole Blood 258 mg/dL (60-115)
[2022-02-21 23:30] VITALS: BP 110/57; PULSE 81; RESP 16; TEMP 36.5; O2SAT 97
[2022-02-22 03:51] VITALS: BP 144/64; PULSE 58; RESP 14; TEMP 36.3; O2SAT 99
[2022-02-22] MEDS: Omeprazole 20 MG CAPSULE.DR PO (06:08)
[2022-02-22 07:25] LABS: Glucose, Whole Blood 178 mg/dL (60-115)
[2022-02-22 08:00] VITALS: BP 159/76; PULSE 76; RESP 18; TEMP 36.8; O2SAT 96
[2022-02-22] MEDS: Insulin Lispro 100 UNIT/ML 3 ML VIAL SUBCUT ×4 (08:27→19:58)
[2022-02-22] MEDS: Ferrous Sulfate 324 MG TABLET.DR PO (08:27)
[2022-02-22] MEDS: Aspirin Enteric Coated 81 MG TABLET.DR PO (08:27)
[2022-02-22] MEDS: Dorzolamide/Timolo 2.23%/0.68% 10 ML DRBTL 1 DROP EYE-RIGHT ×2 (08:28→19:56)
[2022-02-22] MEDS: Brimonidine Tartrate 0.2% Oph 5 ML BOTTLE 1 DROP EYE-BOTH ×3 (08:28→19:59)
[2022-02-22 08:53] LABS: Anion Gap 14 (12-20); Blood Urea Nitrogen 17 mg/dL (9-16); Calcium 9.1 mg/dL (8.4-10.2); Carbon Dioxide 27 mmol/L (22-29); Chloride 98 mmol/L (96-108); Creatinine Clr Calc Pharmacy 39.4; Estimated Glomerular Filt Rate 44; Glucose Random 201 mg/dL (60-115); Potassium 4.2 mmol/L (3.3-5.1); Sodium 135 mmol/L (135-145)
--- NOTE | 2022-02-22 09:47 | HO.PM.IMPN ---
Subjective Subjective Date of Service: 02/22/22 Interval History: Seen in f/u for all, renal failure, adult failure to thrive Interval history: all in all he's doing pretty well, no new issues. He is tolerating liquid diet Review of Systems Gen: no fever Resp: no sob, no cough CV: no chest, no BOWERS, no leg edema GI: No n/v, no abd pain Neuro: No confusion Physical Exam Vital Signs: Vital Signs: Last Vital Signs Temp 98.3 F 02/22/22 08:00 Pulse 76 02/22/22 08:00 Resp 18 02/22/22 08:00 BP 159/76 H 02/22/22 08:00 Pulse Ox 96 02/22/22 08:00 O2 Del Method 02/22/22 08:00 O2 Flow Rate 2 02/21/22 07:25 BMI result Body Mass Index 32.1 Const: Other: General: AO X 3, no acute distress Resp:? CTA bilateral CVS: S1,S2,RRR GI: +BS, NT, no distention Skin: chronic stasis dermatitis, ,left leg is bigger than the rigght from vein graft long ago--no edema Neuro:? motor grossly intact Psych: appropriate affect Objective Data Active Medications Acetaminophen (Acetaminophen 325 Mg Tablet) 650 mg PO Q6H PRN PRN Reason: Pain, Mild (Pain Scale 1-3) Last Admin: 02/21/22 08:28 Dose: 650 mg Documented By: JULIANA Aspirin (Aspirin Enteric Coated 81 Mg Tablet.) 81 mg PO DAILY [facility] Last Admin: 02/22/22 08:27 Dose: 81 mg Documented By: SKYLAR Atorvastatin Calcium (Atorvastatin Calcium 80 Mg Tablet) 80 mg PO BEDTIME [facility] Last Admin: 02/21/22 20:01 Dose: 80 mg Documented By: RONNA Brimonidine Tartrate (Brimonidine Tartrate 0.2% Oph 5 Ml Bottle) 1 drop EYE-BOTH TID [facility] Last Admin: 02/22/22 08:28 Dose: 1 drop Documented By: SKYLAR Dextrose (Dextrose 50 % 25 Gm/50 Ml Syringe) 25 gm IVPUSH Q15M PRN; Protocol PRN Reason: per Hypoglycemia Standing Ord. Diphenhydramine HCl (Diphenhydramine Hcl 25 Mg Tablet) 25 mg PO BID [facility] Last Admin: 02/22/22 08:29 Dose: Not Given Documented By: SKYLAR Non-Admin Reason: Patient Refused Dorzolamide/Timolol (Dorzolamide/Timolo 2.23%/0.68% 10 Ml Drbtl) 1 drop EYE-RIGHT BID [facility] Last Admin: 02/22/22 08:28 Dose: 1 drop Documented By: SKYLAR Enoxaparin Sodium (Enoxaparin Sodium 30 Mg/0.3 Ml Syringe) 30 mg SUBCUT Q24H [facility] Last Admin: 02/21/22 20:02 Dose: 30 mg Documented By: RONNA Ferrous Sulfate (Ferrous Sulfate 324 Mg Tablet.Dr) 324 mg PO DAILY [facility] Last Admin: 02/22/22 08:27 Dose: 324 mg Documented By: SKYLAR Furosemide (Furosemide 40 Mg Tablet) 40 mg PO BID [facility]; Protocol Last Admin: 02/21/22 20:01 Dose: 40 mg Documented By: RONNA Glucose (Glucose Gel 15 Gm Gel..Gram.) 15 gm PO Q15M PRN; Protocol PRN Reason: per Hypoglycemia Standing Ord. Hydromorphone HCl (Hydromorphone Hcl 1 Mg/Ml Syringe) 0.5 mg IVPUSH Q4H PRN; Protocol PRN Reason: Pain, Severe (Pain Scale 7-10) Ceftriaxone Sodium 1 gm/ (Sodium Chloride) 50 mls @ 100 mls/hr IV Q24H [facility] Last Infusion: 02/21/22 18:46 Dose: 0 mls/hr Documented By: RONNA Dextrose/Sodium Chloride (D51/2ns) 1,000 mls @ 80 mls/hr IVCONT .[id number] [facility] Last Admin: 02/21/22 23:44 Dose: 80 mls/hr Documented By: KERI Insulin Human Lispro (Insulin Lispro 100 Unit/Ml 3 Ml Vial) 0 unit SUBCUT QIDACHS [facility]; Protocol Last Admin: 02/22/22 08:27 Dose: 2 unit Documented By: SKYLAR Melatonin (Melatonin 3 Mg Tablet) 6 mg PO BEDTIME PRN PRN Reason: Insomnia Non-Formulary Medication (Apalutamide [Erleada]) 240 mg PO DAILY@1200 [facility] Non-Formulary Medication (Bimatoprost) 1 drop EYE-RIGHT BEDTIME [facility] Non-Formulary Medication (Niacin) 1 tab PO DAILY [facility] Omeprazole (Omeprazole 20 Mg Valeriy.) 20 mg PO DAILY@0630 [facility] Last Admin: 02/22/22 06:08 Dose: 20 mg Documented By: KERI Pharmacy Consult (Consult Rx Perform Med Rec) 1 each MISCELLANE ONCE PRN PRN Reason: Consult order Potassium Chloride (Potassium Chloride Er 20 Meq Tab.Er.Prt) 20 meq PO DAILY [facility] Last Admin: 02/21/22 08:21 Dose: 20 meq Documented By: JULIANA Senna (Sennosides 8.6 Mg Tablet) 17.2 mg PO BEDTIME PRN PRN Reason: Constipation Sodium Chloride (0.9 % Sodium Chloride Flush 3 Ml Syringe) 3 ml IVFLUSH QSHIFT [facility] Last Admin: 02/21/22 23:44 Dose: Not Given Documented By: KERI Non-Admin Reason: IV Running Labs CBC & Chem 7: 02/21/22 06:18 02/22/22 08:11 Labs: Laboratory Results - last 24 hr 02/21/22 02/21/22 02/21/22 11:29 16:08 19:09 Anion Gap Estim Creat Clear Calc Estimated GFR POC Glucose 118 H 236 H 258 H Random Glucose Calcium 02/22/22 02/22/22 07:17 08:11 Anion Gap 14 Estim Creat Clear Calc 39.4 Estimated GFR 44 POC Glucose 178 H Random Glucose 201 H Calcium 9.1 Microbiology Microbiology Results: Microbiology 02/20/22 17:09 Urine Culture - Preliminary Urine Catheterized - Mcmahon Catheter Culture in progress. 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 PT eval before DC, declined rehab last time Adult failure to thrive: Patient attributes to food stuck sensation. He is now tolerating liquid diet, speech and swallow eval Dysphagia: ? Dysphagia, had no apprent difficulty swallowing during last visit. GI is recommending no intervention UTI: Patient has chronic indwelling Mcmahon placed during the last admission secondary to hydronephrosis. Culture is pending MARIALUISA on CKD: Baseline creatinine around 1.4; Creatine 1.52 today withIV ?Gallstone pancreatitis: there is no clinical evidence of gallstone pancreaitis, lipase is normal and has no pain--Seen by Dr. Francois and no intidication for surgery Hydronephrosis: Also noted on the recent CT scan in January. Persistent. Patient has indwelling Mcmahon. Patient to follow-up with Dr. Naqvi for outpatient for outpatient nephrostomy tube placement. History of prostate cancer with metastasis: CT scan showed extensive metastasis to the spine-sclerotic lesions, liver lesions, lymphadenopathy. Patient on Erleada. Follows Dr. Lal. History of diabetes: Noted to be mildly hyperglycemic on presentation. Insulin sliding scale. Monitor glucose. History of glaucoma: Continue home eye drops History of hypertension/hyperlipidemia: Continue home amlodipine, statin. Hold home Lasix for now Pressure ulcer--surgery to eval for Need for debidment DVT prophylaxis: Lovenox Code status: Full code Need for inpatient: MARIALUISA, adult failure to thrive diet been adjustement, IV Abx for UTI Quality Stroke Does the patient have a stroke diagnosis?: No VTE Prior VTE?: No VTE Risk Level:: Medical - moderate - high VTE Device Contraindication: Treatment Not Indicated VTE Drug Contraindication: N/A - Med Ordered
[2022-02-22 11:18] LABS: Glucose, Whole Blood 190 mg/dL (60-115)
--- NOTE | 2022-02-22 11:27 | P.CDIC_ITS ---
CDI Concurrent Query Documentation Clarification: PHYSICIAN'S DOCUMENTATION REQUEST Date of Query: 02/22/22 1128 Patient Name: Neil Lenz Admit Date: 02/20/22 Dear Doctor, A review of the medical record indicates additional documentation may be needed. Please review below and update the documentation accordingly. Clinical Indicators: Documentation includes the diagnosis of malnutrition. Additional clinical indicators from the record include: Risk Factors/Clinical Indicators/Treatments Oj florian note 02/21 - malnourished GI note 02/21 - malnourished Failure to thrive, poor appetite, weakness, prostate cancer with mets. ASPEN Criteria* Acute Illness Chronic Illness Clinical Characteristic Non-Severe (2 or more criteria present) Severe (2 or more criteria present) Non-Severe (2 or more criteria present) Severe (2 or more criteria present) Energy Intake <75% for >7 days <=50% for >=5 days <75% for >=1 month <=75% for >=1 month Weight Loss 1 week 1 ? 2% >2% N/A N/A 1 month 5% >5% 5% >5% 3 months 7.5 % >7.5% 7.5% >7.5% 6 months N/A N/A 10% >10% 1 year N/A N/A 20% >20% Body Fat Mild Moderate Mild Severe Muscle Mass Mild Moderate Mild Severe Fluid Accumulation Mild Moderate to Severe Mild Severe Reduced Strategic Manager Strength N/A Measurably Reduced N/A Measurably Reduced *[facility] Hospitalist, 2017 If possible, please provide in your progress notes, additional specificity regarding the severity of the malnutrition using the above information: * Mild * Moderate * Severe * Other (please specify) * Unable to determine Use of terms such as suspected, likely, concern for, or probable (associated with a specific diagnosis that is being evaluated, monitored, or treated as if it exists) are acceptable and can be coded in the inpatient setting, when documented at the time of discharge. Thank you, Chanelle Arita [facility], CDIS Extension:[phone] Please use your independent medical judgment in providing your response. THIS QUERY IS PART OF THE PERMANENT MEDICAL RECORD
[2022-02-22 11:59] VITALS: BP 136/64; PULSE 66; RESP 19; TEMP 36.6; O2SAT 97
--- NOTE | 2022-02-22 12:36 | P.PNGS_ITS ---
Subjective Subjective Date of Service: 02/22/22 Interval history: Asked by primary team to reevaluate for examination of pressure ulcer and ? need for debridement. Physical Exam Vital Signs: Vital Signs: Last Vital Signs Temp 97.8 F 02/22/22 11:59 Pulse 66 02/22/22 11:59 Resp 19 02/22/22 11:59 BP 136/64 02/22/22 11:59 Pulse Ox 97 02/22/22 11:59 O2 Del Method 02/22/22 11:59 O2 Flow Rate 2 02/21/22 07:25 BMI result Body Mass Index 32.1 Const: General: cooperative, comfortable and no acute distress Skin: Other: pt rolled to left side, wounds present of bilateral buttocks with size of R>L, superficial loss of skin with pink wound base, no visible necrosis, no evidence of infection of surrounding skin, no significant drainage noted Objective Data Active Medications Acetaminophen (Acetaminophen 325 Mg Tablet) 650 mg PO Q6H PRN PRN Reason: Pain, Mild (Pain Scale 1-3) Last Admin: 02/21/22 08:28 Dose: 650 mg Documented By: JULIANA Aspirin (Aspirin Enteric Coated 81 Mg Tablet.Dr) 81 mg PO DAILY [facility] Last Admin: 02/22/22 08:27 Dose: 81 mg Documented By: SKYLAR Atorvastatin Calcium (Atorvastatin Calcium 80 Mg Tablet) 80 mg PO BEDTIME [facility] Last Admin: 02/21/22 20:01 Dose: 80 mg Documented By: RONNA Brimonidine Tartrate (Brimonidine Tartrate 0.2% Oph 5 Ml Bottle) 1 drop EYE- BOTH TID [facility] Last Admin: 02/22/22 08:28 Dose: 1 drop Documented By: SKYLAR Dextrose (Dextrose 50 % 25 Gm/50 Ml Syringe) 25 gm IVPUSH Q15M PRN; Protocol PRN Reason: per Hypoglycemia Standing Ord. Diphenhydramine HCl (Diphenhydramine Hcl 25 Mg Tablet) 25 mg PO BID [facility] Last Admin: 02/22/22 08:29 Dose: Not Given Documented By: SKYLAR Non-Admin Reason: Patient Refused Dorzolamide/Timolol (Dorzolamide/Timolo 2.23%/0.68% 10 Ml Drbtl) 1 drop EYE- RIGHT BID [facility] Last Admin: 02/22/22 08:28 Dose: 1 drop Documented By: SKYLAR Enoxaparin Sodium (Enoxaparin Sodium 30 Mg/0.3 Ml Syringe) 30 mg SUBCUT Q24H [facility] Last Admin: 02/21/22 20:02 Dose: 30 mg Documented By: RONNA Ferrous Sulfate (Ferrous Sulfate 324 Mg Tablet.) 324 mg PO DAILY [facility] Last Admin: 02/22/22 08:27 Dose: 324 mg Documented By: SKYLAR Furosemide (Furosemide 40 Mg Tablet) 40 mg PO BID [facility]; Protocol Last Admin: 02/21/22 20:01 Dose: 40 mg Documented By: RONNA Glucose (Glucose Gel 15 Gm Gel..Gram.) 15 gm PO Q15M PRN; Protocol PRN Reason: per Hypoglycemia Standing Ord. Hydromorphone HCl (Hydromorphone Hcl 1 Mg/Ml Syringe) 0.5 mg IVPUSH Q4H PRN; Protocol PRN Reason: Pain, Severe (Pain Scale 7-10) Ceftriaxone Sodium 1 gm/ (Sodium Chloride) 50 mls @ 100 mls/hr IV Q24H [facility] Last Infusion: 02/21/22 18:46 Dose: 0 mls/hr Documented By: RONNA Insulin Human Lispro (Insulin Lispro 100 Unit/Ml 3 Ml Vial) 0 unit SUBCUT QIDACHS [facility]; Protocol Last Admin: 02/22/22 12:02 Dose: 2 unit Documented By: SKYLAR Melatonin (Melatonin 3 Mg Tablet) 6 mg PO BEDTIME PRN PRN Reason: Insomnia Non-Formulary Medication (Apalutamide [Erleada]) 240 mg PO DAILY@1200 [facility] Non-Formulary Medication (Bimatoprost) 1 drop EYE-RIGHT BEDTIME [facility] Non-Formulary Medication (Niacin) 1 tab PO DAILY [facility] Omeprazole (Omeprazole 20 Mg Capsule.) 20 mg PO DAILY@0630 [facility] Last Admin: 02/22/22 06:08 Dose: 20 mg Documented By: KERI Pharmacy Consult (Consult Rx Perform Med Rec) 1 each MISCELLANE ONCE PRN PRN Reason: Consult order Potassium Chloride (Potassium Chloride Er 20 Meq Tab.Er.Prt) 20 meq PO DAILY [facility] Last Admin: 02/21/22 08:21 Dose: 20 meq Documented By: JULIANA Senna (Sennosides 8.6 Mg Tablet) 17.2 mg PO BEDTIME PRN PRN Reason: Constipation Sodium Chloride (0.9 % Sodium Chloride Flush 3 Ml Syringe) 3 ml IVFLUSH QSHIFT [facility] Last Admin: 02/22/22 10:18 Dose: Not Given Documented By: SKYLAR Non-Admin Reason: IV Running Labs CBC & Chem 7: 02/21/22 06:18 02/22/22 08:11 Labs: Laboratory Results - last 24 hr 02/21/22 02/21/22 02/22/22 16:08 19:09 07:17 Anion Gap Estim Creat Clear Calc Estimated GFR POC Glucose 236 H 258 H 178 H Random Glucose Calcium 02/22/22 02/22/22 08:11 11:13 Anion Gap 14 Estim Creat Clear Calc 39.4 Estimated GFR 44 POC Glucose 190 H Random Glucose 201 H Calcium 9.1 Microbiology Microbiology Results: Microbiology 02/20/22 17:09 Urine Culture - Final Urine Catheterized - Mcmahon Catheter Procedures Date of Service Date of Service: 02/22/22 Progress Note: A&P Assessment and plan (1) Pressure ulcer: Status: Acute Plan 81 year old male admitted with symptoms of dysphagia, weakness, failure to thrive. Found on CT to have a small nonobstructing common bile duct stone with surrounding changes suggestive of pancreatitis.?There is no evidence of downstream ductal dilatation in the common bile duct or intrahepatic ducts. Patient was found to be asymptomatic with no apparent abdominal tenderness to deep palpation. Now noted to have a stage 2 pressure ulcer of bilateral buttocks. No evidence of infection. No need for surgical debridement at this time. May continue to use Allevyn for wound care. Frequent repositioning to avoid pressure on these areas. Ensure wounds stay clean as they are close to rectum and at risk for fecal contamination. Defer to GI at this time for management of nonobstructing CBD stone; no plans for surgery from our standpoint. Discussed with Dr. Francois. Time Spent With Patient Time: Total time spent is greater than 50% in coordination of care (as documented) at patient's floor/unit and/or counseling patient: Quality Stroke Does the patient have a stroke diagnosis?: No VTE Prior VTE?: No VTE Risk Level:: Medical - moderate - high VTE Device Contraindication: Treatment Not Indicated VTE Drug Contraindication: N/A - Med Ordered
--- NOTE | 2022-02-22 12:55 | MHC.SL.SWA ---
Speech Pathologist Impression: Oropharyngeal dysphagia Dysphasia Diet Status: Upgrade to regular solids/thin liquids when cleared from clear liquid diet Liquid Consistency and Strategies for Safe Swallow: Liquid Intake Recommendation: Thin Liquid Intake Strategies: Small Sips Solid Food Consistency: Dietary Recommendations: Regular Additional Modifications to Solid Foods: Patient seen for bedside dysphagia evaluation this afternoon. Patient consumed applesauce, chandrakant crackers, water. Unremarkable oral phase. Complete oral clearance. Incomplete laryngeal elevation. Timely swallow trigger. No clinical signs of aspiration. Recommend REGULAR solids with THIN liquids when cleared by MD to upgrade from clear liquid diet. Pills whole with liquid. Patient is legally blind. He is able to feed himself, but does require total 1:1 assistance with tray for all PO intake d/t visual deficit. Continue w/ aspiration precautions. When seen by CAREER CONSULTANT this date, patient denied having trouble swallowing and denied food feeling stuck, stating, Everything has been going down good. Patient did previously report to hospitalists feeling globus sensation with solid foods, no trouble with liquids. If concern persists, may benefit from MBSS. Dajuan has seen this patient. CAREER CONSULTANT will continue to follow. Oral Medication Intake: Whole with Liquid Please contact the pharmacy regarding appropriate crushable or liquid drug formulations that are available whenever modified delivery is recommended. Compensatory Strategies and Precautions to be Taken for Safe Swallow: Sitting Upright (90 deg) Small Bites and Sips Alternate Liquids/Solids Rate of Ingestion Change Supervision While Eating and Drinking for Safe Swallow: Total Assistance (1:1) Foods to Avoid: D/t limited dentition, recommend avoid tough, difficult to chew solids, sticky consistencies. Assure that tray is well set up, and Pt can access cutlery. Swallowing Recommended Treatments: Compens. Strategy Educat. Recommendation for Speech: Inpatient Speech Therapy Comment: Patient may benefit from MBSS if concern persists. : Account Receivable Clerk Clinican/Clinical Fellow: No Supervisory Statement: I have reviewed and agree with the student/clinical fellow's documentation: N/A Speech Language Pathologist: Anila Scott M.A., [facility]-CAREER CONSULTANT
--- NOTE | 2022-02-22 12:59 | MHC.SL.SWA ---
Speech Pathologist Impression: Oropharyngeal dysphagia Dysphasia Diet Status: Recommend regular solids/thin liquids when patient is cleared to upgrade from clear liquid diet. Liquid Consistency and Strategies for Safe Swallow: Liquid Intake Recommendation: Thin Liquid Intake Strategies: Small Sips Solid Food Consistency: Dietary Recommendations: Regular Additional Modifications to Solid Foods: Patient seen for bedside dysphagia evaluation this afternoon. Patient consumed applesauce, chandrakant crackers, water. Unremarkable oral phase. Complete oral clearance. Incomplete laryngeal elevation. Timely swallow trigger. No clinical signs of aspiration. Recommend REGULAR solids with THIN liquids when cleared by MD to upgrade from clear liquid diet. Pills whole with liquid. D/t limited dentition, avoid tough, difficult to chew solids. Patient is legally blind. He is able to feed himself, but does require total 1:1 assistance with tray for all PO intake d/t visual deficit. Continue w/ aspiration precautions. When seen by FURNACE INSTALLER this date, patient denied having trouble swallowing and denied food feeling stuck, stating, Everything has been going down good. Patient did previously report to hospitalists feeling globus sensation with solid foods, no trouble with liquids. If concern persists, may benefit from MBSS. Dajuan has seen this patient. FURNACE INSTALLER will continue to follow. Oral Medication Intake: Whole with Liquid Please contact the pharmacy regarding appropriate crushable or liquid drug formulations that are available whenever modified delivery is recommended. Compensatory Strategies and Precautions to be Taken for Safe Swallow: Sitting Upright (90 deg) Small Bites and Sips Alternate Liquids/Solids Rate of Ingestion Change Supervision While Eating and Drinking for Safe Swallow: Total Assistance (1:1) Foods to Avoid: D/t limited dentition, recommend avoid tough, difficult to chew solids, sticky consistencies. Assure that tray is well set up, and Pt can access cutlery. Swallowing Recommended Treatments: Compens. Strategy Educat. Recommendation for Speech: Inpatient Speech Therapy Comment: Patient may benefit from MBSS if concern persists. Frequency/Duration: Date Range for Service Req: Timeline to reassess: Salvage Clerk Clinican/Clinical Fellow: No Supervisory Statement: I have reviewed and agree with the student/clinical fellow's documentation: N/A Speech Language Pathologist: Anila Scott M.A., CCC-FURNACE INSTALLER
--- NOTE | 2022-02-22 13:07 | P.CONWO_ITS ---
History of Present Illness Data of Consult Service Date: 02/22/22 Requesting physician: David Riddle Primary Care Provider: Unknown Physician HPI Reason for consult: stage 2 to bilateral buttocks HPI: 81 year male with metastatic prostate cancer who was documented to have come in from a nursing facility, but states that he lives at home. Unclear how reliable he is but his family is here and very supportive. Children were in the room along with his who is oxygen dependent. He came in with a urinary tract infection and was treated for yeast in the groin. He fell, had FTT and carries a history of diabetes. Unclear how well he walks but did physical therapy today and worked very hard. Review of Systems Review of Systems: Denies fevers, chills, SOB. Yes all other systems are reviewed and are negative [facility] Medical History MARIALUISA (acute kidney injury) CKD (chronic kidney disease) stage 3, GFR 30-59 ml/min CKD (chronic kidney disease) stage 3, GFR 30-59 ml/min Diabetes Diabetes with retinopathy Glaucoma History of heart block HTN (hypertension) Hydronephrosis Legally blind Surgical History Status post cardiac pacemaker procedure Social History Household Members: Spouse Housing: Assisted Living Facility Do you presently have visiting nurse or other home services: Yes Alcohol intake: never Patient Tobacco Use Status: Former Tobacco user Use of substances other than those prescribed or required for medical reasons: No Currently Displaying Signs/Symptoms of Drug Intoxication Withdrawal: No Have you been hit, kicked, punched, or otherwise hurt by someone within the past year? If so, by whom?: No Do you feel safe in your current relationship?: Yes Is there a partner from a previous relationship who is making you feel unsafe now?: No Are you made to feel afraid or neglected: No Advance Directives: No Advance Directives Information Provided: No Do you have a plan to hurt others: No Plan Recently lost weight without trying: No Nutrition Risks: Difficulty swallowing Poor oral hygiene: No service: Yes Current occupational status: retired Meds Allergies Allergy/AdvReac Type Severity Reaction Status Date / Time Penicillins [PCN] Allergy Unknown UNKNOWN Verified 02/05/22 19:43 Active Medications: Current Medications Acetaminophen (Acetaminophen 325 Mg Tablet) 650 mg PO Q6H PRN PRN Reason: Pain, Mild (Pain Scale 1-3) Last Admin: 02/21/22 08:28 Dose: 650 mg Aspirin (Aspirin Enteric Coated 81 Mg Tablet.) 81 mg PO DAILY [facility] Last Admin: 02/22/22 08:27 Dose: 81 mg Atorvastatin Calcium (Atorvastatin Calcium 80 Mg Tablet) 80 mg PO BEDTIME [facility] Last Admin: 02/21/22 20:01 Dose: 80 mg Brimonidine Tartrate (Brimonidine Tartrate 0.2% Oph 5 Ml Bottle) 1 drop EYE- BOTH TID [facility] Last Admin: 02/22/22 08:28 Dose: 1 drop Dextrose (Dextrose 50 % 25 Gm/50 Ml Syringe) 25 gm IVPUSH Q15M PRN; Protocol PRN Reason: per Hypoglycemia Standing Ord. Diphenhydramine HCl (Diphenhydramine Hcl 25 Mg Tablet) 25 mg PO BID [facility] Last Admin: 02/22/22 08:29 Dose: Not Given Dorzolamide/Timolol (Dorzolamide/Timolo 2.23%/0.68% 10 Ml Drbtl) 1 drop EYE- RIGHT BID [facility] Last Admin: 02/22/22 08:28 Dose: 1 drop Enoxaparin Sodium (Enoxaparin Sodium 30 Mg/0.3 Ml Syringe) 30 mg SUBCUT Q24H [facility] Last Admin: 02/21/22 20:02 Dose: 30 mg Ferrous Sulfate (Ferrous Sulfate 324 Mg Tablet.) 324 mg PO DAILY [facility] Last Admin: 02/22/22 08:27 Dose: 324 mg Furosemide (Furosemide 40 Mg Tablet) 40 mg PO BID [facility]; Protocol Last Admin: 02/21/22 20:01 Dose: 40 mg Glucose (Glucose Gel 15 Gm Gel..Gram.) 15 gm PO Q15M PRN; Protocol PRN Reason: per Hypoglycemia Standing Ord. Hydromorphone HCl (Hydromorphone Hcl 1 Mg/Ml Syringe) 0.5 mg IVPUSH Q4H PRN; Protocol PRN Reason: Pain, Severe (Pain Scale 7-10) Ceftriaxone Sodium 1 gm/ (Sodium Chloride) 50 mls @ 100 mls/hr IV Q24H [facility] Last Infusion: 02/21/22 18:46 Dose: Infused Insulin Human Lispro (Insulin Lispro 100 Unit/Ml 3 Ml Vial) 0 unit SUBCUT QIDACHS [facility]; Protocol Last Admin: 02/22/22 12:02 Dose: 2 unit Melatonin (Melatonin 3 Mg Tablet) 6 mg PO BEDTIME PRN PRN Reason: Insomnia Non-Formulary Medication (Apalutamide [Erleada]) 240 mg PO DAILY@1200 [facility] Non-Formulary Medication (Bimatoprost) 1 drop EYE-RIGHT BEDTIME [facility] Non-Formulary Medication (Niacin) 1 tab PO DAILY [facility] Omeprazole (Omeprazole 20 Mg Capsule.Dr) 20 mg PO DAILY@0630 [facility] Last Admin: 02/22/22 06:08 Dose: 20 mg Pharmacy Consult (Consult Rx Perform Med Rec) 1 each MISCELLANE ONCE PRN PRN Reason: Consult order Potassium Chloride (Potassium Chloride Er 20 Meq Tab.Er.Prt) 20 meq PO DAILY [facility] Last Admin: 02/21/22 08:21 Dose: 20 meq Senna (Sennosides 8.6 Mg Tablet) 17.2 mg PO BEDTIME PRN PRN Reason: Constipation Sodium Chloride (0.9 % Sodium Chloride Flush 3 Ml Syringe) [facility] Admin: 02/22/22 10:18 Dose: Not Given Home Medications Medication Instructions Recorded Confirmed Last Taken Type Lantus U-100 Insulin 10 units subcut BID 01/28/22 02/20/22 02/05/22 History apalutamide 60 mg tablet (Erleada) 240 mg PO DAILY@1200 01/28/22 02/20/22 02/19/22 History niacin 500 mg tablet 1 tab PO DAILY 01/28/22 02/20/22 02/05/22 History potassium chloride 20 mEq 1 tab PO DAILY 01/28/22 02/20/22 02/19/22 History tablet,extended release amlodipine 10 mg tablet 10 mg PO DAILY 01/29/22 02/20/22 02/20/22 History aspirin 81 mg tablet,delayed 81 mg PO DAILY 01/29/22 02/20/22 02/19/22 History release bimatoprost 0.01 % eye drops 1 drp ophthalmic-Right BEDTIME 01/29/22 02/20/22 02/19/22 History brimonidine 0.2 % eye drops 1 drp ophthalmic (eye) TID 01/29/22 02/20/22 02/19/22 History dorzolamide 22.3 mg-timolol 6.8 1 drp ophthalmic-Right BID 01/29/22 02/20/22 02/20/22 History mg/mL eye drops ferrous sulfate 325 mg (65 mg 325 mg PO DAILY 01/29/22 02/20/22 02/20/22 History iron) tablet insulin aspart U-100 100 unit/mL 6 unit subcut DAILY@1130 01/29/22 02/20/22 02/05/22 History (3 mL) subcutaneous pen (Novolog Flexpen U-100 Insulin aspart) insulin aspart U-100 100 unit/mL 8 unit subcut BID@0730,1630 01/29/22 02/20/22 02/05/22 History (3 mL) subcutaneous pen (Novolog Flexpen U-100 Insulin aspart) rosuvastatin 40 mg tablet 40 mg PO BEDTIME 01/29/22 02/20/22 02/19/22 History furosemide 40 mg tablet 1 tab PO BID 02/05/22 02/20/22 02/19/22 History diphenhydramine HCl 25 mg capsule 25 mg PO BID 02/20/22 02/20/22 02/20/22 History omeprazole 20 mg tablet,delayed 20 mg PO DAILY@0630 02/20/22 02/20/22 02/20/22 History release Physical Exam Vital Signs and Narrative: Vital Signs: Last Vital Signs Temp 97.8 F 02/22/22 11:59 Pulse 66 02/22/22 11:59 Resp 19 02/22/22 11:59 BP 136/64 02/22/22 11:59 Pulse Ox 97 02/22/22 11:59 O2 Del Method 02/22/22 11:59 O2 Flow Rate 2 02/21/22 07:25 BMI result Body Mass Index 32.1 Shows good comprehension of instructions and ability to move independently in the bed. The right posterior thigh wound is examined 1st. It is a proximally 1.2 by a 0.5 cm to gross examination. A Tegaderm was removed two- view this area which is not a skin tear. Additionally was covered with brown film. Slough E appearance to open area with surrounding purplish hue. Contralateral side showing some flaking epithelium. These might possibly be related to previously placed all even in the setting of moisture, particularly given that he is being treated for yeast infection of the skin. The medial buttock wounds have clear friction and shear component with shaved appearance of epithelium of the periwound. Blanching is fully intact suggesting that pressure is probably not the primary etiology. No redness or streaking to suggest infection. Results Labs CBC and Chem 7: 02/21/22 06:18 02/22/22 08:11 Labs: Laboratory Results - last 24 hr 02/21/22 02/21/22 02/22/22 16:08 19:09 07:17 Anion Gap Estim Creat Clear Calc Estimated GFR POC Glucose 236 H 258 H 178 H Random Glucose Calcium 02/22/22 02/22/22 08:11 11:13 Anion Gap 14 Estim Creat Clear Calc 39.4 Estimated GFR 44 POC Glucose 190 H Random Glucose 201 H Calcium 9.1 Assessment and Plan (1) Dermatitis, unspecified: Status: Acute Plan 81-year-old male with metastatic prostate cancer and reasonable bed mobility with physical therapy note from today that indicating he can ambulate 50 ft with a walker with contact guard assist. Wonderful! Encourage ambulation with contact guard assist. Family is very supportive in might be able to do this in the hospital if the walker is available. This will reduce the risk of pressure ulcer development. I would treat the buttock wounds as friction and shear. This can be achieved the best way with and large Allevyn but must be large enough to fit over both buttocks wounds. Consider switching to silver alginate i f allevyn in his problematic. The silicone inferior edges are purposefully not applied to the posterior thighs which have harboring moisture in the past and caused localized infection. I do not agree with Tegaderm on skin tears unless they are located the on the arms. Ideally zinc oxide and nystatin powder together would make a nice caking agent for the right posterior thigh. Keeping the area dry will help heal the wound the affected by friction, shear and maceration.
[2022-02-22 14:03] VITALS: BMI 32.1
--- NOTE | 2022-02-22 14:11 | MHC.CLN ---
NUTRITION CONSULT FOR POOR INTAKE. DIET=DIABETIC 1800 KCAL. ADDING ENSURE BID TO PROVIDE ADDITIONAL 700 KCALS, 40 G PROTEIN. TAKES SUPPLEMENT AT HOME. SEEN BY QUALITY IMPROVEMENT COORDINATOR (RN) WITH DIET REC FOR REGULAR CONSISTENCY. PATIENT WITH HX SWALLOWING DIFFICULTY AND REPORTED RECENT DECREASED INTAKE. INCREASED NUTRITIONAL NEEDS DUE TO STAGE II PRESSURE INJURY. DIABETIC 1800 KCAL DIET AND SUPPLEMENT ENSURE BID APPROPRIATE.
[2022-02-22 15:07] VITALS: BP 112/71; PULSE 54; RESP 18; TEMP 36.1; O2SAT 96
[2022-02-22] MEDS: 0.9 % Sodium Chloride Flush 3 ML SYRINGE IVFLUSH ×2 (15:37→23:29)
[2022-02-22 15:57] LABS: Glucose, Whole Blood 153 mg/dL (60-115)
[2022-02-22] MEDS: cefTRIAXone sodium 1 GM in 0.9 % Sodium Chloride 50 ML IV (17:48)
[2022-02-22 19:05] VITALS: BP 115/65; PULSE 62; RESP 18; TEMP 36.5; O2SAT 97
[2022-02-22 19:37] LABS: Glucose, Whole Blood 219 mg/dL (60-115)
[2022-02-22] MEDS: Enoxaparin Sodium 30 MG/0.3 ML SYRINGE SUBCUT (19:57)
[2022-02-22] MEDS: diphenhydrAMINE HCL 25 MG TABLET PO (19:58)
[2022-02-22] MEDS: Atorvastatin Calcium 80 MG TABLET PO (19:58)
[2022-02-22] MEDS: Nystatin Powder 15 GM BOTTLE 1 APPL TOPICAL (19:59)
[2022-02-22 23:38] VITALS: BP 138/65; PULSE 58; RESP 16; TEMP 36
[2022-02-23 03:58] VITALS: BP 136/71; PULSE 58; RESP 14; TEMP 36.1; O2SAT 98
[2022-02-23] MEDS: Omeprazole 20 MG CAPSULE.DR PO (05:53)
[2022-02-23 07:28] LABS: Glucose, Whole Blood 165 mg/dL (60-115)
[2022-02-23] MEDS: Insulin Lispro 100 UNIT/ML 3 ML VIAL SUBCUT ×4 (07:53→20:54)
[2022-02-23] MEDS: Aspirin Enteric Coated 81 MG TABLET.DR PO (07:54)
[2022-02-23] MEDS: Ferrous Sulfate 324 MG TABLET.DR PO (07:54)
[2022-02-23] MEDS: 0.9 % Sodium Chloride Flush 3 ML SYRINGE IVFLUSH ×3 (07:54→23:29)
[2022-02-23] MEDS: Nystatin Powder 15 GM BOTTLE 1 APPL TOPICAL ×2 (09:16→20:52)
[2022-02-23] MEDS: Brimonidine Tartrate 0.2% Oph 5 ML BOTTLE 1 DROP EYE-BOTH ×3 (09:16→20:52)
[2022-02-23] MEDS: Dorzolamide/Timolo 2.23%/0.68% 10 ML DRBTL 1 DROP EYE-RIGHT ×2 (09:17→20:53)
[2022-02-23 09:45] VITALS: BP 136/71; PULSE 58; O2SAT 98
[2022-02-23 11:13] VITALS: BP 113/53; PULSE 55; RESP 18; TEMP 36; O2SAT 96
[2022-02-23 11:24] LABS: Glucose, Whole Blood 288 mg/dL (60-115)
--- NOTE | 2022-02-23 12:42 | P.CDIC_ITS ---
CDI Concurrent Query Documentation Clarification: PHYSICIAN'S DOCUMENTATION REQUEST Date of Query: 02/23/22 1243 Patient Name: Neil Lenz Admit Date: 02/20/22 Dear Doctor, A review of the medical record indicates additional documentation may be indicated. Please review below and update the documentation accordingly. Clinical Indicators: Current documentation includes a diagnosis of UTI. Additional clinical indicators in the record include: Risk Factors/Clinical Indicators/Treatments Patient has a chronic indwelling gill catheter placed during last admission. Urine, Hazy, + nitrite, 2+ leukocyte, urine RBC & WBC TNTC, Bacteria 2+, cloudy output from gill catheter, decreased PO. Ceftriaxone Please provide further specificity regarding the site, etiology, acuity, and known or suspected organism: Urinary tract infection * Urinary tract infection due to chronic indwelling gill catheter POA * Other * Unable to determine site * Indicate known or suspected organism * E-coli * Klebsiella * Rhonda * Other Use of terms such as suspected, likely, concern for, or probable (associated with a specific diagnosis that is being evaluated, monitored, or treated as if it exists) are acceptable and can be coded in the inpatient setting, when documented at the time of discharge. Thank you, Chanelle Arita [facility], CDIS Extension: [phone] Please use your independent medical judgment in providing your response. THIS QUERY IS PART OF THE PERMANENT MEDICAL RECORD Provider Response: Other Other Diagnosis: uti possible related to catherter use .
--- NOTE | 2022-02-23 13:44 | MHC.CM.PN ---
CM MET W/PT AND SPOKE W/GDTR ADEEL AT [facility] SPEAKING TO PT'S SON MARILU AT NUMBER ON FILE, INITIALLY PT DID NOT WANT STR PT RECOMMENDED AND FAMILY WAS ON BOARD HOWEVER WHEN PT'S /GDTR VISITED PT CONFIDED IN GDTR THAT HE WAS AFRAID TO GO HOME D/T NOT BEING ABLE TO CARE FOR HIM, APPEARS FRAIL AND ON PORTABLE O2 TANK, CM MET W/PT AGAIN AFTER SPEAKING W/SON MARILU WHO REPORTS PT DID HAVE A GOOD EXPERIENCE AT [facility], PT DOES CONFIRM THAT HE WOULD PREFER [facility] FOR STR, REFERRAL HAS BEEN PLACED AND CM AWAITING RESPONSE AT TIME OF THIS NOTE
--- NOTE | 2022-02-23 14:15 | P.PNIM_ITS ---
Subjective Subjective Date of Service: 02/23/22 Interval History: marialuisa ,poor oral intake,uti Review of Systems seems more awake , po intake improving Physical Exam Vital Signs: Vital Signs: Last Vital Signs Temp 96.8 F 02/23/22 11:13 Pulse 55 02/23/22 11:13 Resp 18 02/23/22 11:13 BP 113/53 L 02/23/22 11:13 Pulse Ox 96 02/23/22 11:13 O2 Del Method 02/23/22 11:13 O2 Flow Rate 2 02/21/22 07:25 BMI result Body Mass Index 32.1 General: AO X 3, no acute distress Resp:? CTA bilateral CVS: S1,S2,RRR GI: +BS, NT, no distention Skin: chronic stasis dermatitis, ,left leg is bigger than the right from vein graft long ago--no edema buttock area wounds vs friction/shear Neuro:? motor grossly intact Psych: appropriate affect ? Objective Data Active Medications Acetaminophen (Acetaminophen 325 Mg Tablet) 650 mg PO Q6H PRN PRN Reason: Pain, Mild (Pain Scale 1-3) Last Admin: 02/21/22 08:28 Dose: 650 mg Documented By: JULIANA Aspirin (Aspirin Enteric Coated 81 Mg Tablet.) 81 mg PO DAILY [facility] Last Admin: 02/23/22 07:54 Dose: 81 mg Documented By: SKYLAR Atorvastatin Calcium (Atorvastatin Calcium 80 Mg Tablet) 80 mg PO BEDTIME [facility] Last Admin: 02/22/22 19:58 Dose: 80 mg Documented By: SISSY Brimonidine Tartrate (Brimonidine Tartrate 0.2% Oph 5 Ml Bottle) 1 drop EYE- BOTH TID [facility] Last Admin: 02/23/22 09:16 Dose: 1 drop Documented By: SKYLAR Dextrose (Dextrose 50 % 25 Gm/50 Ml Syringe) 25 gm IVPUSH Q15M PRN; Protocol PRN Reason: per Hypoglycemia Standing Ord. Diphenhydramine HCl (Diphenhydramine Hcl 25 Mg Tablet) 25 mg PO BID [facility] Last Admin: 02/23/22 09:00 Dose: Not Given Documented By: SKYLAR Non-Admin Reason: Patient Refused Dorzolamide/Timolol (Dorzolamide/Timolo 2.23%/0.68% 10 Ml Drbtl) 1 drop EYE- RIGHT BID [facility] Last Admin: 02/23/22 09:17 Dose: 1 drop Documented By: SKYLAR Enoxaparin Sodium (Enoxaparin Sodium 30 Mg/0.3 Ml Syringe) 30 mg SUBCUT Q24H [facility] Last Admin: 02/22/22 19:57 Dose: 30 mg Documented By: SISSY Ferrous Sulfate (Ferrous Sulfate 324 Mg Tablet.) 324 mg PO DAILY [facility] Last Admin: 02/23/22 07:54 Dose: 324 mg Documented By: SKYLAR Furosemide (Furosemide 40 Mg Tablet) 40 mg PO BID [facility]; Protocol Last Admin: 02/21/22 20:01 Dose: 40 mg Documented By: COLHEYDI Glucose (Glucose Gel 15 Gm Gel..Gram.) 15 gm PO Q15M PRN; Protocol PRN Reason: per Hypoglycemia Standing Ord. Hydromorphone HCl (Hydromorphone Hcl 1 Mg/Ml Syringe) 0.5 mg IVPUSH Q4H PRN; Protocol PRN Reason: Pain, Severe (Pain Scale 7-10) Ceftriaxone Sodium 1 gm/ (Sodium Chloride) 50 mls @ 100 mls/hr IV Q24H [facility] Last Infusion: 02/22/22 18:24 Dose: 0 mls/hr Documented By: SISSY Insulin Human Lispro (Insulin Lispro 100 Unit/Ml 3 Ml Vial) 0 unit SUBCUT QIDACHS [facility]; Protocol Last Admin: 02/23/22 11:41 Dose: 6 unit Documented By: SKYLAR Melatonin (Melatonin 3 Mg Tablet) 6 mg PO BEDTIME PRN PRN Reason: Insomnia Non-Formulary Medication (Apalutamide [Erleada]) 240 mg PO DAILY@1200 [facility] Non-Formulary Medication (Bimatoprost) 1 drop EYE-RIGHT BEDTIME [facility] Non-Formulary Medication (Niacin) 1 tab PO DAILY [facility] Nystatin (Nystatin Powder 15 Gm Bottle) 1 appl TOPICAL BID [facility]; Protocol Last Admin: 02/23/22 09:16 Dose: 1 appl Documented By: SKYLAR Omeprazole (Omeprazole 20 Mg Capsule.) 20 mg PO DAILY@0630 [facility] Last Admin: 02/23/22 05:53 Dose: 20 mg Documented By: KERI Pharmacy Consult (Consult Rx Perform Med Rec) 1 each MISCELLANE ONCE PRN PRN Reason: Consult order Potassium Chloride (Potassium Chloride Er 20 Meq Tab.Er.Prt) 20 meq PO DAILY [facility] Last Admin: 02/21/22 08:21 Dose: 20 meq Documented By: JULIANA Senna (Sennosides 8.6 Mg Tablet) 17.2 mg PO BEDTIME PRN PRN Reason: Constipation Sodium Chloride (0.9 % Sodium Chloride Flush 3 Ml Syringe) 3 ml IVFLUSH QSHIFT [facility] Last Admin: 02/23/22 07:54 Dose: 3 ml Documented By: SKYLAR Labs CBC & Chem 7: 02/21/22 06:18 02/22/22 08:11 Labs: Laboratory Results - last 24 hr 02/22/22 02/22/22 02/23/22 15:11 19:10 07:12 POC Glucose 153 H 219 H 165 H 02/23/22 11:11 POC Glucose 288 H Microbiology Microbiology Results: Microbiology 02/20/22 17:09 Urine Culture - Final Urine Catheterized - Mcmahon Catheter Assessment and Plan (1) UTI (urinary tract infection): Status: Acute Plan 81 year male with a past medical history of hypertension, hyperlipidemia, diabetes, CKD, 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 Mechanical in nature, no fracture. PT eval before DC, declined rehab last time Adult failure to thrive: Patient attributes to food stuck sensation.? He is now tolerating liquid diet, speech and swallow eval UTI:? Patient has chronic indwelling Mcmahon placed during the last admission secondary to hydronephrosis. Culture is pending MARIALUISA on CKD:? Baseline creatinine around 1.4;? Creatine 1.52 . Hydronephrosis:? Also noted on the recent CT scan in January.? Persistent.? Patient has indwelling Mcmahon.? Patient to follow-up with Dr. Naqvi for outpatient for outpatient nephrostomy tube placement. History of prostate cancer with metastasis:? CT scan showed extensive metastasis to the spine-sclerotic lesions, liver lesions, lymphadenopathy.? Patient on Erleada.? Follows Dr. Lal. History of diabetes:? Noted to be mildly hyperglycemic on presentation.? Insulin sliding scale.? Monitor glucose. History of glaucoma: Continue home eye drops History of hypertension/hyperlipidemia: Continue home amlodipine, statin.? Hold home Lasix for now Pressure ulcer--surgery and wound care saw the patient -wound care , no surgerical intervention. Pt-recomended rehab DVT prophylaxis:? Lovenox Code status:? Full code Need for inpatient: IV Abx for UTI,awiting placemnet Quality Stroke Does the patient have a stroke diagnosis?: No VTE Prior VTE?: No VTE Risk Level:: Medical - moderate - high VTE Device Contraindication: Treatment Not Indicated VTE Drug Contraindication: N/A - Med Ordered
[2022-02-23 16:00] VITALS: BP 125/61; PULSE 74; RESP 17; TEMP 36.4; O2SAT 97
[2022-02-23 16:55] LABS: Glucose, Whole Blood 250 mg/dL (60-115)
[2022-02-23] MEDS: cefTRIAXone sodium 1 GM in 0.9 % Sodium Chloride 50 ML IV (17:04)
[2022-02-23 19:22] VITALS: BP 107/54; PULSE 70; RESP 20; TEMP 36.4; O2SAT 97
[2022-02-23 19:42] LABS: Glucose, Whole Blood 177 mg/dL (60-115)
[2022-02-23] MEDS: diphenhydrAMINE HCL 25 MG TABLET PO (20:51)
[2022-02-23] MEDS: Atorvastatin Calcium 80 MG TABLET PO (20:51)
[2022-02-23] MEDS: Enoxaparin Sodium 30 MG/0.3 ML SYRINGE SUBCUT (20:51)
[2022-02-23 23:39] VITALS: BP 110/62; PULSE 55; RESP 20; TEMP 35.9; O2SAT 95
[2022-02-24] VITALS (8 sets, daily range): BP systolic 119–138; BP diastolic 60–72; PULSE 55–83; RESP 18; TEMP 36.1–36.6; O2SAT 94–100
[2022-02-24] MEDS: Omeprazole 20 MG CAPSULE.DR PO (05:45)
[2022-02-24 07:37] LABS: Glucose, Whole Blood 161 mg/dL (60-115)
[2022-02-24] MEDS: Insulin Lispro 100 UNIT/ML 3 ML VIAL SUBCUT ×4 (07:56→20:01)
[2022-02-24] MEDS: Ferrous Sulfate 324 MG TABLET.DR PO (09:17)
[2022-02-24] MEDS: Aspirin Enteric Coated 81 MG TABLET.DR PO (09:17)
[2022-02-24] MEDS: diphenhydrAMINE HCL 25 MG TABLET PO ×2 (09:18→19:59)
[2022-02-24] MEDS: 0.9 % Sodium Chloride Flush 3 ML SYRINGE IVFLUSH ×3 (09:20→23:46)
[2022-02-24] MEDS: Dorzolamide/Timolo 2.23%/0.68% 10 ML DRBTL 1 DROP EYE-RIGHT ×2 (09:20→20:00)
[2022-02-24] MEDS: Nystatin Powder 15 GM BOTTLE 1 APPL TOPICAL ×2 (09:20→20:04)
[2022-02-24] MEDS: Brimonidine Tartrate 0.2% Oph 5 ML BOTTLE 1 DROP EYE-BOTH ×3 (09:20→19:59)
--- NOTE | 2022-02-24 09:26 | MHC.CM.PN ---
PT MEDICALLY CLEARED FOR D/C TO [facility] FOR [facility] FOR BLS TRANSPORT. CM ATTEMPTED TO CONTACT PT'S SON/HCP MARILU MESSAGE LEFT ON VOICEMAIL AND CM RECEIVED CALL BACK FROM PT'S DTR PEDRITO MARILU IS WORKING, PEDRITO AGREEABLE TO D/C PLAN. ANTIC PT WILL LEAVE AT 1PM PENDING INSURANCE AUTH.
[2022-02-24 09:55] LABS: COVID-19 Test Negative (Negative)
--- NOTE | 2022-02-24 11:10 | PM.DS ---
DS: Providers Provider Date of Service: 02/24/22 Date of admission: 02/20/22 19:41 Primary care physician: Unknown Physician Consults: 02/21/22 00:50 Consult to Gastroenterology Routine Consulting Provider: Mohan Ignacio Reason for consultation: Dysphagia 02/21/22 00:54 Consult to General Surgery Routine Consulting Provider: Ehsan Guaman Reason for consultation: Gallstone pancreatitis DS: Diagnosis Discharge Diagnosis (1) UTI (urinary tract infection): Status: Acute DS: Summary Hospital Course Hospital Course: 81 year male with a past medical history of hypertension, hyperlipidemia, diabetes, CKD, 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 Patient reports that over days he has been not eating good, attributes to not able to swallow down, mentions he has foot stuck sensation, unable to bring anything down; denies any abdominal pain; mentions he is able to swallow liquids.? Denies any chest pain or palpitations.? Denies any fever chills cough.? Patient also mentions that he was going to the bathroom with the help of his walker early in the morning; suddenly he tripped and fell over, denies any loss of consciousness; denies any hip pain, back pain, neck pain.? Denies any urinary frequency or urgency.? Patient reports that he had a Mcmahon catheter placed in the last admission. Family noted cloudy urine.? Review of all other systems is negative except mentioned above ER course: Per ER team patient on presentation noted to be dehydrated, urinalysis abnormal consistent with UTI, given ceftriaxone-patient tolerated; also noted to have renal insufficiency; concern for dehydration.? Admitted for further management. hospital course: Patient was admitted to the hospital status post fall: has multiple comorbidities including CKD, also had poor oral intake. seen by speech and Swallow recommended to advanced diet and patient is tolerating the diet now. UTI: Patient initially was on IV ceftriaxone, started on Ceftin upon discharge.Hydronephrosis has Mcmahon encourage hydration nora on ckd: seems to be improved ,slwoly introduce lasix in next few days. follow up for Hydronephrosis has Mcmahon and uti -will need outpatient follow up with urology(Dr Naqvi urology). Patient to follow-up with Dr. Naqvi for outpatient for outpatient nephrostomy tube placement. intilaly on imaging thought to be Gallstone pancreatitis: there is no clinical evidence of gallstone pancreaitis, lipase is normal and has no abd pain--Seen by Dr. Francois and no intidication for surgery History of prostate cancer with metastasis:? CT scan showed extensive metastasis to the spine-sclerotic lesions, liver lesions, lymphadenopathy.? Patient on Erleada.?imaging results discussed with oncology-patient follows up with Dr. Lal recomended outpatient follow up. buttock pressure ulcers :seen by surgery and wound care-No need for surgical debridement at this time. May continue to use Allevyn for wound care. Frequent repositioning to avoid pressure on these areas. Ensure wounds stay clean as they are close to rectum and at risk for fecal contamination. wound care also recomended:Apply a thick layer of zinc oxide to periwound of buttocks and posterior thigh wound.? Use silver alginate to the remaining open area to which zinc oxide will not adhere.? Cover with dry, clean dressing. due to multiple medical comorbidities including metastatic prostate cancer and generalized condition of patient, fragility:d/w family and oncology - decided to defer chemotherpay and decided for hospice. Above management discussed with the patient in detail length patient and his daughter/ -they understand and in agreement with the above plan, time spent 50 minutes and 50% time spent on counseling. Significant findings: As above. Procedures performed: None. Treatment and response: As above. Complications: None. Time Spent with Patient Time attestation: Total time spent providing and/or coordinating discharge services: Discharge coordination time: Greater than 30 minutes Quality: Safe Use of Opioids Does Pt have an Active Cancer Diagnosis on the Problem List?: No Quality: Stroke Does the patient have a stroke diagnosis?: No Physical Exam Vital Signs: Vital Signs: Last Vital Signs Temp 97.4 F 02/24/22 07:56 Pulse 58 02/24/22 09:09 Resp 18 02/24/22 07:56 BP 138/62 02/24/22 09:09 Pulse Ox 98 02/24/22 09:09 O2 Del Method 02/24/22 03:13 O2 Flow Rate 2 02/21/22 07:25 BMI result Body Mass Index 32.1 General: AO X 3, no acute distress Resp:? CTA bilateral CVS: S1,S2,RRR GI: +BS, NT, no distention Skin: chronic stasis dermatitis, ,left leg is bigger than the right from vein graft long ago--no edema wounds present of bilateral buttocks with size of R>L, superficial loss of skin with pink wound base. pressure ulcer stage2. buttock area wounds vs friction/shear Neuro:? motor grossly intact Psych: appropriate affect DS: Data Data Completed and Pending Labs on day of discharge: Laboratory Results - last 24 hr 02/23/22 02/23/22 02/23/22 11:11 16:51 19:38 POC Glucose 288 H 250 H 177 H COVID-19 (MICHAELA) COVID-19 Clin Com 02/24/22 02/24/22 07:27 09:25 POC Glucose 161 H COVID-19 (MICHAELA) Negative COVID-19 Clin Com See Note Additional Comments Additional comments: 02/22/22 02/22/22 ? 08:11 11:13 Anion Gap ?14 ? Estim Creat Clear Calc ?39.4 ? Estimated GFR ?44 ? POC Glucose ? ?190 H Random Glucose ?201 H ? Calcium ?9.1 ? Microbiology Microbiology Results: Microbiology ?02/20/22 17:09 Urine Culture - Final ?Urine Catheterized - Mcmahon Catheter ? ?CT/CT abdomen pelvis wo con IMPRESSION: ? Suspect gallstone pancreatitis. Correlate clinically to confirm the diagnosis of pancreatitis. Subtle possible stone within the junction of the common bile duct and pancreatic duct ? Sclerotic metastases unchanged. ? Liver lesions less conspicuous compared to prior. ? Persistent dilatation of the left collecting system down to the level of the pelvic lymphadenopathy as before. ? ? ? Fleischner guidelines were followed. CT/CT head/brain wo con IMPRESSION: Deep white matter and periventricular hypoattenuation, nonspecific; most likely sequela of chronic microvascular angiopathy ischemia. ? No fracture. ? No CT evidence of intracranial bleed. ? Atrophy and intraglobal calcification left orbit please correlate with the clinical exam. CT/CT cervical spine wo con IMPRESSION: *No acute fracture. ? *Multiple osteolytic and osteosclerotic densities involving the entire cervical spine concerning for bone metastasis especially possible prostate CA. Elevated diagnosis has not already been established, May consider correlation with follow-up bone scan. ? *Underlying early advanced degenerative disc disease at all levels. Discharge Plan Discharge Patient Disposition: [facility] Discharge Diagnosis: fall, poor oral intake , nora , pressure ulcer Referrals: [facility] [Outside] - 1 Week (SHORT TERM REHAB) Espinoza Naqvi MD [Physician] - 1 Week (follow up outpatiently) PhysicianLisa [Primary Care Provider] - 1 Week Discharge Medications: New nystatin 100,000 unit/gram Powder 1 appl topical BID Qty: 1 0RF Protocol: Apply to: Apply to: right posterior thigh after zinc oxide application cefuroxime axetil 250 mg tablet 250 mg PO BID Qty: 10 0RF Continued Erleada 60 mg Tablet 240 mg PO DAILY@1200 niacin 500 mg tablet 1 tab PO DAILY potassium chloride 20 mEq tablet extended release 1 tab PO DAILY Lantus U-100 Insulin 10 units subcut BID insulin aspart U-100 [Novolog Flexpen U-100 Insulin] 100 unit/mL (3 mL) Insulin Pen 8 unit SUBCUT BID@0730,1630 insulin aspart U-100 [Novolog Flexpen U-100 Insulin] 100 unit/mL (3 mL) Insulin Pen 6 unit SUBCUT DAILY@1130 rosuvastatin 40 mg Tablet 40 mg PO BEDTIME amlodipine 10 mg Tablet 10 mg PO DAILY aspirin 81 mg Tablet,Delayed Release (Dr/Ec) 81 mg PO DAILY bimatoprost 0.01 % Drops 1 drp ophthalmic-Right BEDTIME brimonidine 0.2 % Drops 1 drp OPHTHALMIC (EYE) TID Rx Instructions: administer approximately 8 hours apart dorzolamide-timolol 22.3-6.8 mg/mL Drops 1 drp ophthalmic-Right BID ferrous sulfate 325 mg (65 mg iron) Tablet 325 mg PO DAILY clotrimazole [Antifungal (clotrimazole)] 1 % cream 1 appl topical BID 28 Days Qty: 90 0RF diphenhydramine HCl 25 mg Capsule 25 mg PO BID omeprazole 20 mg Tablet,Delayed Release (Dr/Ec) 20 mg PO DAILY@0630 Held furosemide 40 mg tablet 1 tab PO BID Hold Instructions: Resume on 02/27/22. Discharge Orders: Discharge Order (Routine); Ordered 02/26/22 Ordered By: Homer Martins Diet: advance to usual diet Activity on Discharge: As tolerated Stand Alone Forms: Patient Portal Discharge page Care Plan Goals: Patient was admitted to the hospital status post fall: has multiple comorbidities including CKD, also had poor oral intake. seen by speech and Swallow recommended to advanced diet and patient is tolerating the diet now. nora on ckd: seems to be improved ,please check bmo in 2-3 days and start lasix as renal function allows. UTI: Patient initially was on IV ceftriaxone, started on Ceftin upon discharge. prostate cancer with metastasis- patient follows up with Dr. Lal outpatient. Hydronephrosis has Mcmahon patient need to sollow up with Dr Naqvi and Dr Lal outpatient. Health Concerns: as above. encourage hydration follow up for Hydronephrosis has Mcmahon and uti -will need outpatient follow up with urology(Dr Naqvi). dressing chnages for decubtii -as per surgery/wound care. Plan of Treatment: as above. Assessment: as above.
--- NOTE | 2022-02-24 11:25 | MHC.SL.SWA ---
Speech Pathologist Impression: WFL Dysphasia Diet Status: Continue with REGULAR diet w/ THIN Liquids. Pt requires assistance w/ tray at all meals, with preparation of food to eat in bitesize amounts (e.g. pre-cutting food) and orientation to foods and utensils on tray (due to blindness). Patient tolerating unmodified diet. Patient denies having complaints pertaining to his swallow at this time. Further ST intervention no longer warranted at this level of care. Please re-refer if there are any changes or further concern. Liquid Consistency and Strategies for Safe Swallow: Liquid Intake Recommendation: Thin Liquid Intake Strategies: Unrestricted Solid Food Consistency: Dietary Recommendations: Regular Additional Modifications to Solid Foods: Pt requires assistance w/ tray at all meals, with preparation of food to eat in bitesize amounts (e.g. pre-cutting food), opening juices and other drinks, and orientation to foods and utensils on tray (due to blindness). Oral Medication Intake: Whole with Liquid Please contact the pharmacy regarding appropriate crushable or liquid drug formulations that are available whenever modified delivery is recommended. Compensatory Strategies and Precautions to be Taken for Safe Swallow: Sitting Upright (90 deg) Liquids from Cup Liquids from Straw Supervision While Eating and Drinking for Safe Swallow: Intermittent Supervision Foods to Avoid: D/t limited dentition, recommend avoid tough, difficult to chew solids, sticky consistencies. Assure that tray is well set up, and Pt can access cutlery. Swallowing Recommended Treatments: Compens. Strategy Educat. Recommendation for Speech: D/C Telecommunications Specialist Clinican/Clinical Fellow: No Supervisory Statement: I have reviewed and agree with the student/clinical fellow's documentation: N/A Speech Language Pathologist: Anila Scott M.A., CCC-COREMAKER HELPER
[2022-02-24 11:48] LABS: Glucose, Whole Blood 201 mg/dL (60-115)
--- NOTE | 2022-02-24 13:56 | HO.PM.IMPN ---
Subjective Subjective Date of Service: 02/24/22 Interval History: marialuisa ,poor oral intake,uti Review of Systems denies any chest pain or shortness of breath or abdominal pain or fever or chills Physical Exam Vital Signs: Vital Signs: Last Vital Signs Temp 97.0 F 02/24/22 11:46 Pulse 61 02/24/22 11:46 Resp 18 02/24/22 11:46 BP 127/60 02/24/22 11:46 Pulse Ox 100 02/24/22 11:46 O2 Del Method 02/24/22 11:46 O2 Flow Rate 2 02/21/22 07:25 BMI result Body Mass Index 32.1 General: AO X 3, no acute distress Resp:? CTA bilateral CVS: S1,S2,RRR GI: +BS, NT, no distention Skin: chronic stasis dermatitis, ,left leg is bigger than the right from vein graft long ago--no edema buttock area wounds vs friction/shear Neuro:? motor grossly intact Psych: appropriate affect Objective Data Active Medications Acetaminophen (Acetaminophen 325 Mg Tablet) 650 mg PO Q6H PRN PRN Reason: Pain, Mild (Pain Scale 1-3) Last Admin: 02/21/22 08:28 Dose: 650 mg Documented By: JULIANA Aspirin (Aspirin Enteric Coated 81 Mg Tablet.) 81 mg PO DAILY [facility] Last Admin: 02/24/22 09:17 Dose: 81 mg Documented By: SKYLAR Atorvastatin Calcium (Atorvastatin Calcium 80 Mg Tablet) 80 mg PO BEDTIME [facility] Last Admin: 02/23/22 20:51 Dose: 80 mg Documented By: SISSY Brimonidine Tartrate (Brimonidine Tartrate 0.2% Oph 5 Ml Bottle) 1 drop EYE-BOTH TID [facility] Last Admin: 02/24/22 09:20 Dose: 1 drop Documented By: SKYLAR Dextrose (Dextrose 50 % 25 Gm/50 Ml Syringe) 25 gm IVPUSH Q15M PRN; Protocol PRN Reason: per Hypoglycemia Standing Ord. Diphenhydramine HCl (Diphenhydramine Hcl 25 Mg Tablet) 25 mg PO BID [facility] Last Admin: 02/24/22 09:18 Dose: 25 mg Documented By: SKYLAR Dorzolamide/Timolol (Dorzolamide/Timolo 2.23%/0.68% 10 Ml Drbtl) 1 drop EYE-RIGHT BID [facility] Last Admin: 02/24/22 09:20 Dose: 1 drop Documented By: SKYLAR Enoxaparin Sodium (Enoxaparin Sodium 30 Mg/0.3 Ml Syringe) 30 mg SUBCUT Q24H [facility] Last Admin: 02/23/22 20:51 Dose: 30 mg Documented By: SISSY Ferrous Sulfate (Ferrous Sulfate 324 Mg Tablet.) 324 mg PO DAILY [facility] Last Admin: 02/24/22 09:17 Dose: 324 mg Documented By: SKYLAR Furosemide (Furosemide 40 Mg Tablet) 40 mg PO BID [facility]; Protocol Last Admin: 02/21/22 20:01 Dose: 40 mg Documented By: COLHEYDI Glucose (Glucose Gel 15 Gm Gel..Gram.) 15 gm PO Q15M PRN; Protocol PRN Reason: per Hypoglycemia Standing Ord. Hydromorphone HCl (Hydromorphone Hcl 1 Mg/Ml Syringe) 0.5 mg IVPUSH Q4H PRN; Protocol PRN Reason: Pain, Severe (Pain Scale 7-10) Ceftriaxone Sodium 1 gm/ (Sodium Chloride) 50 mls @ 100 mls/hr IV Q24H [facility] Last Infusion: 02/23/22 17:44 Dose: 0 mls/hr Documented By: SISSY Insulin Human Lispro (Insulin Lispro 100 Unit/Ml 3 Ml Vial) 0 unit SUBCUT QIDACHS [facility]; Protocol Last Admin: 02/24/22 11:49 Dose: 4 unit Documented By: SKYLAR Melatonin (Melatonin 3 Mg Tablet) 6 mg PO BEDTIME PRN PRN Reason: Insomnia Non-Formulary Medication (Apalutamide [Erleada]) 240 mg PO DAILY@1200 [facility] Non-Formulary Medication (Bimatoprost) 1 drop EYE-RIGHT BEDTIME [facility] Non-Formulary Medication (Niacin) 1 tab PO DAILY [facility] Nystatin (Nystatin Powder 15 Gm Bottle) 1 appl TOPICAL BID [facility]; Protocol Last Admin: 02/24/22 09:20 Dose: 1 appl Documented By: SKYLAR Omeprazole (Omeprazole 20 Mg Capsule.) 20 mg PO DAILY@0630 [facility] Last Admin: 02/24/22 05:45 Dose: 20 mg Documented By: KERI Pharmacy Consult (Consult Rx Perform Med Rec) 1 each MISCELLANE ONCE PRN PRN Reason: Consult order Potassium Chloride (Potassium Chloride Er 20 Meq Tab.Er.Prt) 20 meq PO DAILY [facility] Last Admin: 02/21/22 08:21 Dose: 20 meq Documented By: JULIANA Senna (Sennosides 8.6 Mg Tablet) 17.2 mg PO BEDTIME PRN PRN Reason: Constipation Sodium Chloride (0.9 % Sodium Chloride Flush 3 Ml Syringe) 3 ml IVFLUSH QSHIFT [facility] Last Admin: 02/24/22 09:20 Dose: 3 ml Documented By: SKYLAR Labs CBC & Chem 7: 02/21/22 06:18 02/22/22 08:11 Labs: Laboratory Results - last 24 hr 02/23/22 02/23/22 02/24/22 16:51 19:38 07:27 POC Glucose 250 H 177 H 161 H COVID-19 (MICHAELA) COVID-19 Clin Com 02/24/22 02/24/22 09:25 11:45 POC Glucose 201 H COVID-19 (MICHAELA) Negative COVID-19 Clin Com See Note Assessment and Plan (1) UTI (urinary tract infection): Status: Acute Plan 81 year male with a past medical history of hypertension, hyperlipidemia, diabetes, CKD, 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 Mechanical in nature, no fracture. PT eval before DC, declined rehab last time Adult failure to thrive: Patient attributes to food stuck sensation.? He is now tolerating liquid diet, speech and swallow eval UTI:? Patient has chronic indwelling Mcmahon placed during the last admission secondary to hydronephrosis. Culture is pending MARIALUISA on CKD:? Baseline creatinine around 1.4;? Creatine 1.52 . Hydronephrosis:? Also noted on the recent CT scan in January.? Persistent.? Patient has indwelling Mcmahon.? Patient to follow-up with Dr. Naqvi for outpatient for outpatient nephrostomy tube placement. History of prostate cancer with metastasis:? CT scan showed extensive metastasis to the spine-sclerotic lesions, liver lesions, lymphadenopathy.? Patient on Erleada.? Follows Dr. Lal. History of diabetes:? Noted to be mildly hyperglycemic on presentation.? Insulin sliding scale.? Monitor glucose. History of glaucoma: Continue home eye drops History of hypertension/hyperlipidemia: Continue home amlodipine, statin.? Hold home Lasix for now Pressure ulcer--surgery and wound care saw the patient -wound care , no surgerical intervention. Pt-recomended rehab DVT prophylaxis:? Lovenox Code status:? Full code Need for inpatient: awiting placement Quality Stroke Does the patient have a stroke diagnosis?: No VTE Prior VTE?: No VTE Risk Level:: Medical - moderate - high VTE Device Contraindication: Treatment Not Indicated VTE Drug Contraindication: N/A - Med Ordered
--- NOTE | 2022-02-24 14:41 | MHC.CM.PN ---
D/C TO BE CANCELLED D/T NO INSURANCE AUTH, SNF UNABLE TO ACCEPT W/CA MED, WOULD TAKE FROM HOME HOWEVER WOULD REQUIRE MED TO BE SEALED OR BLISTER PACKED, PER PT'S DTR MED COMES DIRECTLY FROM [facility] AND IS IN A REGULAR PILL BOTTLE, DTR IS AWARE THAT PT WILL NOT D/C TODAY FOR PREVIOUS REASONS AND AGREEABLE TO EXPANSION OF REFERRAL.
[2022-02-24 16:03] LABS: Glucose, Whole Blood 295 mg/dL (60-115)
--- NOTE | 2022-02-24 16:31 | MHC.CM.PN ---
CM MET W/PT'S DTR PEDRITO AT BEDSIDE, PEDRITO REPORTS PT'S SON MARILU SPOKE W/DR LEYVA REGARDING STOPPING CA TX & DR LEYVA WAS AGREEABLE, PDERITO ALSO REPORTED THAT ED PROVIDER HAD TOLD FAMILY D/T EXTENSIVE METASTASIS PT WOULD LIKELY SURVIVE ANOTHER 2 MOS AND W/CA TX DR LEYVA REPORTED MAY GIVE PT ANOTHER MONTH, AGREEABLE AND ANTIC PLAN WILL BE TO TXFR TO CO CONTRACTED FACILITY W/HOSPICE. FAMILY WILL DISCUSS FURTHER W/PT THE NEED FOR HOSPICE AND FOLLOW UP W/CM TOMORROW 02/25.
[2022-02-24 19:14] LABS: Glucose, Whole Blood 306 mg/dL (60-115)
[2022-02-24] MEDS: Enoxaparin Sodium 30 MG/0.3 ML SYRINGE SUBCUT (19:58)
[2022-02-24] MEDS: Atorvastatin Calcium 80 MG TABLET PO (19:59)
[2022-02-25 03:16] VITALS: BP 128/60; PULSE 65; RESP 18; TEMP 36.6; O2SAT 95
[2022-02-25] MEDS: Omeprazole 20 MG CAPSULE.DR PO (06:24)
[2022-02-25 07:14] VITALS: BP 146/62; PULSE 59; RESP 18; TEMP 36.1; O2SAT 96
[2022-02-25 08:03] LABS: Glucose, Whole Blood 271 mg/dL (60-115)
[2022-02-25] MEDS: Insulin Lispro 100 UNIT/ML 3 ML VIAL SUBCUT ×4 (08:16→21:42)
[2022-02-25] MEDS: Ferrous Sulfate 324 MG TABLET.DR PO (08:17)
[2022-02-25] MEDS: diphenhydrAMINE HCL 25 MG TABLET PO ×2 (08:17→20:54)
[2022-02-25] MEDS: Nystatin Powder 15 GM BOTTLE 1 APPL TOPICAL ×2 (08:17→20:55)
[2022-02-25] MEDS: Aspirin Enteric Coated 81 MG TABLET.DR PO (08:17)
[2022-02-25] MEDS: Dorzolamide/Timolo 2.23%/0.68% 10 ML DRBTL 1 DROP EYE-RIGHT ×2 (08:18→20:54)
[2022-02-25] MEDS: Brimonidine Tartrate 0.2% Oph 5 ML BOTTLE 1 DROP EYE-BOTH ×3 (08:18→20:54)
[2022-02-25] MEDS: 0.9 % Sodium Chloride Flush 3 ML SYRINGE IVFLUSH ×3 (08:55→20:54)
--- NOTE | 2022-02-25 09:12 | MHC.CLN ---
F/U PO INTAKE 100% DIET RX: 1800DM-RECOMMEND LIBERALIZING DIET R/T PT TRANSITIONING TO HOSPICE PT RECEIVING 8OZ ENSURE ENLIVE BID PROVIDES 700KCALS, 40G PROTEIN TO INCREASE KCALS AND PROMOTE WOUND HEALING PT DRINKS SUPPLEMENT AT HOME WILL CHANGE DIET TO REGULAR PRIMARY GOAL IS COMFORT
[2022-02-25 10:48] VITALS: BP 146/62; PULSE 59; O2SAT 96
[2022-02-25 10:50] VITALS: BP 144/62; PULSE 56; RESP 18; TEMP 36.4; O2SAT 97
--- NOTE | 2022-02-25 10:55 | MHC.CM.PN ---
CM MET W/SON/HCP MARILU AT BEDSIDE TO DISCUSS DISPO, PER SON FAMILY DOES NOT PREFER/WANT TO HAVE HOSPICE CONSULT PRIOR TO D/C, CM AWAITING TO HEAR BACK FROM [facility] TO SEE IF THEY WILL BE ABLE TO OFFER A BED, PER DISCUSSION W/DTR PEDRITO YESTERDAY [facility] WOULD BE PREFERRED SNF.
[2022-02-25 12:02] LABS: Glucose, Whole Blood 278 mg/dL (60-115)
--- NOTE | 2022-02-25 13:05 | MHC.CM.PN ---
CM MET W/PT AND SON AT BEDSIDE, SON NOW REPORTING HE WANTS A HOSPICE CONSULT AND AGREEABLE TO [facility], CONSULT AND REFERRAL PLACED, ONCOLOGY CONSULT ALSO PLACED, DR LEYVA HAS MET W/FAMILY AND AGREEABLE TO PLAN. [facility] CHECKING ON BED AVAILABILITY
--- NOTE | 2022-02-25 13:52 | HO.PM.IMPN ---
Subjective Subjective Date of Service: 02/26/22 Interval History: marialuisa ,poor oral intake,uti Review of Systems denies any? chest pain or shortness of breath or abdominal pain or fever or chills Physical Exam Vital Signs: Vital Signs: Last Vital Signs Temp 97.5 F 02/25/22 10:50 Pulse 56 02/25/22 10:50 Resp 18 02/25/22 10:50 BP 144/62 H 02/25/22 10:50 Pulse Ox 97 02/25/22 10:50 O2 Del Method 02/25/22 10:50 O2 Flow Rate 2 02/21/22 07:25 BMI result Body Mass Index 32.1 General: AO X 3, no acute distress Resp:? CTA bilateral CVS: S1,S2,RRR GI: +BS, NT, no distention Skin: chronic stasis dermatitis, ,left leg is bigger than the right from vein graft long ago--no edema buttock area wounds vs friction/shear Neuro:? motor grossly intact Psych: appropriate affect Objective Data Active Medications Acetaminophen (Acetaminophen 325 Mg Tablet) 650 mg PO Q6H PRN PRN Reason: Pain, Mild (Pain Scale 1-3) Last Admin: 02/21/22 08:28 Dose: 650 mg Documented By: JULIANA Aspirin (Aspirin Enteric Coated 81 Mg Tablet.) 81 mg PO DAILY [facility] Last Admin: 02/25/22 08:17 Dose: 81 mg Documented By: CELSO Atorvastatin Calcium (Atorvastatin Calcium 80 Mg Tablet) 80 mg PO BEDTIME [facility] Last Admin: 02/24/22 19:59 Dose: 80 mg Documented By: SISSY Brimonidine Tartrate (Brimonidine Tartrate 0.2% Oph 5 Ml Bottle) 1 drop EYE-BOTH TID [facility] Last Admin: 02/25/22 08:18 Dose: 1 drop Documented By: CELSO Cefuroxime Axetil (Cefuroxime Axetil 250 Mg Tablet) 250 mg PO BID [facility] Last Admin: 02/25/22 08:17 Dose: 250 mg Documented By: CELSO Dextrose (Dextrose 50 % 25 Gm/50 Ml Syringe) 25 gm IVPUSH Q15M PRN; Protocol PRN Reason: per Hypoglycemia Standing Ord. Diphenhydramine HCl (Diphenhydramine Hcl 25 Mg Tablet) 25 mg PO BID [facility] Last Admin: 02/25/22 08:17 Dose: 25 mg Documented By: CELSO Dorzolamide/Timolol (Dorzolamide/Timolo 2.23%/0.68% 10 Ml Drbtl) 1 drop EYE-RIGHT BID [facility] Last Admin: 02/25/22 08:18 Dose: 1 drop Documented By: CELSO Enoxaparin Sodium (Enoxaparin Sodium 30 Mg/0.3 Ml Syringe) 30 mg SUBCUT Q24H [facility] Last Admin: 02/24/22 19:58 Dose: 30 mg Documented By: SISSY Ferrous Sulfate (Ferrous Sulfate 324 Mg Tablet.) 324 mg PO DAILY [facility] Last Admin: 02/25/22 08:17 Dose: 324 mg Documented By: CELSO Furosemide (Furosemide 40 Mg Tablet) 40 mg PO BID [facility]; Protocol Last Admin: 02/21/22 20:01 Dose: 40 mg Documented By: COLHEYDI Glucose (Glucose Gel 15 Gm Gel..Gram.) 15 gm PO Q15M PRN; Protocol PRN Reason: per Hypoglycemia Standing Ord. Hydrocortisone (Hydrocortisone 1 % Cream 28.35 Gm Tube) 1 appl TOPICAL DAILY PRN; Protocol PRN Reason: Itching Hydromorphone HCl (Hydromorphone Hcl 1 Mg/Ml Syringe) 0.5 mg IVPUSH Q4H PRN; Protocol PRN Reason: Pain, Severe (Pain Scale 7-10) Insulin Human Lispro (Insulin Lispro 100 Unit/Ml 3 Ml Vial) 0 unit SUBCUT QIDACHS [facility]; Protocol Last Admin: 02/25/22 12:07 Dose: 6 unit Documented By: CELSO Melatonin (Melatonin 3 Mg Tablet) 6 mg PO BEDTIME PRN PRN Reason: Insomnia Non-Formulary Medication (Apalutamide [Erleada]) 240 mg PO DAILY@1200 [facility] Non-Formulary Medication (Bimatoprost) 1 drop EYE-RIGHT BEDTIME [facility] Non-Formulary Medication (Niacin) 1 tab PO DAILY [facility] Nystatin (Nystatin Powder 15 Gm Bottle) 1 appl TOPICAL BID [facility]; Protocol Last Admin: 02/25/22 08:17 Dose: 1 appl Documented By: CELSO Omeprazole (Omeprazole 20 Mg Capsule.) 20 mg PO DAILY@0630 [facility] Last Admin: 02/25/22 06:24 Dose: 20 mg Documented By: KERI Pharmacy Consult (Consult Rx Perform Med Rec) 1 each MISCELLANE ONCE PRN PRN Reason: Consult order Potassium Chloride (Potassium Chloride Er 20 Meq Tab.Er.Prt) 20 meq PO DAILY [facility] Last Admin: 02/21/22 08:21 Dose: 20 meq Documented By: JUSTYNA-PRAKASHDRISS Senna (Sennosides 8.6 Mg Tablet) 17.2 mg PO BEDTIME PRN PRN Reason: Constipation Sodium Chloride (0.9 % Sodium Chloride Flush 3 Ml Syringe) 3 ml IVFLUSH QSHIFT [facility] Last Admin: 02/25/22 08:55 Dose: 3 ml Documented By: COTEMA Labs CBC & Chem 7: 02/21/22 06:18 02/22/22 08:11 Labs: Laboratory Results - last 24 hr 02/24/22 02/24/22 02/25/22 15:58 19:02 07:19 POC Glucose 295 H 306 H 271 H 02/25/22 10:54 POC Glucose 278 H Assessment and Plan (1) UTI (urinary tract infection): Status: Acute Plan 81 year male with a past medical history of hypertension, hyperlipidemia, diabetes, CKD, 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 Mechanical in nature, no fracture. PT eval before DC, declined rehab last time Adult failure to thrive: Patient attributes to food stuck sensation.? He is now tolerating liquid diet, speech and swallow eval UTI:? Patient has chronic indwelling Mcmahon placed during the last admission secondary to hydronephrosis. Culture is pending MARIALUISA on CKD:? Baseline creatinine around 1.4;? Creatine 1.52 . Hydronephrosis:? Also noted on the recent CT scan in January.? Persistent.? Patient has indwelling Mcmahon.? Patient to follow-up with Dr. Naqvi for outpatient for outpatient nephrostomy tube placement. History of prostate cancer with metastasis:? CT scan showed extensive metastasis to the spine-sclerotic lesions, liver lesions, lymphadenopathy.? Patient on Erleada.? Follows Dr. Lal. History of diabetes:? Noted to be mildly hyperglycemic on presentation.? Insulin sliding scale.? Monitor glucose. History of glaucoma: Continue home eye drops History of hypertension/hyperlipidemia: Continue home amlodipine, statin.? Hold home Lasix for now Pressure ulcer--surgery and wound care saw the patient -wound care , no surgerical intervention. Pt-recomended rehab d/w patient family (son),also oncology-Currently family's wishes are to stop chemotherapy and decided for hospice care. DVT prophylaxis:? Lovenox Code status:? Full code Need for inpatient: awiting placement Quality Stroke Does the patient have a stroke diagnosis?: No VTE Prior VTE?: No VTE Risk Level:: Medical - moderate - high VTE Device Contraindication: Treatment Not Indicated VTE Drug Contraindication: N/A - Med Ordered
[2022-02-25 16:00] VITALS: BP 137/77; PULSE 54; RESP 18; TEMP 36.9; O2SAT 97
[2022-02-25] MEDS: Hydrocortisone 1 % Cream 28.35 GM TUBE 1 APPL TOPICAL (16:20)
[2022-02-25 17:05] LABS: Glucose, Whole Blood 297 mg/dL (60-115)
[2022-02-25 19:52] VITALS: BP 143/58; PULSE 53; RESP 18; TEMP 36.6; O2SAT 94
[2022-02-25 20:30] LABS: Glucose, Whole Blood 273 mg/dL (60-115)
[2022-02-25] MEDS: Enoxaparin Sodium 30 MG/0.3 ML SYRINGE SUBCUT (20:54)
[2022-02-25] MEDS: Atorvastatin Calcium 80 MG TABLET PO (20:54)
[2022-02-25 23:23] LABS: Glucose, Whole Blood 230 mg/dL (60-115)
[2022-02-26] VITALS: BP 140/66; PULSE 56; RESP 18; TEMP 35.9; O2SAT 97
[2022-02-26 04:00] VITALS: BP 154/60; PULSE 57; RESP 18; TEMP 36.2; O2SAT 98
[2022-02-26] MEDS: Omeprazole 20 MG CAPSULE.DR PO (05:34)
[2022-02-26 07:36] VITALS: BP 155/70; PULSE 81; RESP 18; TEMP 36.6; O2SAT 96
[2022-02-26 07:46] LABS: Glucose, Whole Blood 197 mg/dL (60-115)
--- NOTE | 2022-02-26 07:52 | P.PNIM_ITS ---
Subjective Subjective Date of Service: 02/26/22 Interval History: marialuisa ,poor oral intake,uti Physical Exam Vital Signs: Vital Signs: Last Vital Signs Temp 97.8 F 02/26/22 07:36 Pulse 81 02/26/22 07:36 Resp 18 02/26/22 07:36 BP 155/70 H 02/26/22 07:36 Pulse Ox 96 02/26/22 07:36 O2 Del Method 02/26/22 07:36 O2 Flow Rate 2 02/21/22 07:25 BMI result Body Mass Index 32.1 General: AO X 3, no acute distress Resp:? CTA bilateral CVS: S1,S2,RRR GI: +BS, NT, no distention Skin: chronic stasis dermatitis, ,left leg is bigger than the right from vein graft long ago--no edema buttock area wounds vs friction/shear Neuro:? motor grossly intact Psych: appropriate affect Objective Data Active Medications Acetaminophen (Acetaminophen 325 Mg Tablet) 650 mg PO Q6H PRN PRN Reason: Pain, Mild (Pain Scale 1-3) Last Admin: 02/21/22 08:28 Dose: 650 mg Documented By: JULIANA Aspirin (Aspirin Enteric Coated 81 Mg Tablet.) 81 mg PO DAILY [facility] Last Admin: 02/25/22 08:17 Dose: 81 mg Documented By: CELSO Atorvastatin Calcium (Atorvastatin Calcium 80 Mg Tablet) 80 mg PO BEDTIME [facility] Last Admin: 02/25/22 20:54 Dose: 80 mg Documented By: ILSA Brimonidine Tartrate (Brimonidine Tartrate 0.2% Oph 5 Ml Bottle) 1 drop EYE- BOTH TID [facility] Last Admin: 02/25/22 20:54 Dose: 1 drop Documented By: ILSA Cefuroxime Axetil (Cefuroxime Axetil 250 Mg Tablet) 250 mg PO BID [facility] Last Admin: 02/25/22 20:54 Dose: 250 mg Documented By: ILSA Dextrose (Dextrose 50 % 25 Gm/50 Ml Syringe) 25 gm IVPUSH Q15M PRN; Protocol PRN Reason: per Hypoglycemia Standing Ord. Diphenhydramine HCl (Diphenhydramine Hcl 25 Mg Tablet) 25 mg PO BID [facility] Last Admin: 02/25/22 20:54 Dose: 25 mg Documented By: ILSA Dorzolamide/Timolol (Dorzolamide/Timolo 2.23%/0.68% 10 Ml Drbtl) 1 drop EYE- RIGHT BID [facility] Last Admin: 02/25/22 20:54 Dose: 1 drop Documented By: ILSA Enoxaparin Sodium (Enoxaparin Sodium 30 Mg/0.3 Ml Syringe) 30 mg SUBCUT Q24H [facility] Last Admin: 02/25/22 20:54 Dose: 30 mg Documented By: ILSA Ferrous Sulfate (Ferrous Sulfate 324 Mg Tablet.) 324 mg PO DAILY [facility] Last Admin: 02/25/22 08:17 Dose: 324 mg Documented By: CELSO Furosemide (Furosemide 40 Mg Tablet) 40 mg PO BID [facility]; Protocol Last Admin: 02/21/22 20:01 Dose: 40 mg Documented By: RONNA Glucose (Glucose Gel 15 Gm Gel..Gram.) 15 gm PO Q15M PRN; Protocol PRN Reason: per Hypoglycemia Standing Ord. Hydrocortisone (Hydrocortisone 1 % Cream 28.35 Gm Tube) 1 appl TOPICAL DAILY PRN; Protocol PRN Reason: Itching Last Admin: 02/25/22 16:20 Dose: 1 appl Documented By: DERICKEMA Insulin Human Lispro (Insulin Lispro 100 Unit/Ml 3 Ml Vial) 0 unit SUBCUT QIDACHS [facility]; Protocol Last Admin: 02/25/22 21:42 Dose: 6 unit Documented By: ILSA Melatonin (Melatonin 3 Mg Tablet) 6 mg PO BEDTIME PRN PRN Reason: Insomnia Non-Formulary Medication (Apalutamide [Erleada]) 240 mg PO DAILY@1200 [facility] Non-Formulary Medication (Bimatoprost) 1 drop EYE-RIGHT BEDTIME [facility] Non-Formulary Medication (Niacin) 1 tab PO DAILY [facility] Nystatin (Nystatin Powder 15 Gm Bottle) 1 appl TOPICAL BID [facility]; Protocol Last Admin: 02/25/22 20:55 Dose: 1 appl Documented By: ILSA Omeprazole (Omeprazole 20 Mg Capsule.) 20 mg PO DAILY@0630 [facility] Last Admin: 02/26/22 05:34 Dose: 20 mg Documented By: ILSA Pharmacy Consult (Consult Rx Perform Med Rec) 1 each MISCELLANE ONCE PRN PRN Reason: Consult order Potassium Chloride (Potassium Chloride Er 20 Meq Tab.Er.Prt) 20 meq PO DAILY [facility] Last Admin: 02/21/22 08:21 Dose: 20 meq Documented By: JULIANA Senna (Sennosides 8.6 Mg Tablet) 17.2 mg PO BEDTIME PRN PRN Reason: Constipation Sodium Chloride (0.9 % Sodium Chloride Flush 3 Ml Syringe) 3 ml IVFLUSH QSHIFT [facility] Last Admin: 02/25/22 20:54 Dose: 3 ml Documented By: ILSA Labs CBC & Chem 7: 02/21/22 06:18 02/22/22 08:11 Labs: Laboratory Results - last 24 hr 02/25/22 02/25/22 02/25/22 07:19 10:54 16:17 POC Glucose 271 H 278 H 297 H 02/25/22 02/25/22 02/26/22 19:54 23:19 07:22 POC Glucose 273 H 230 H 197 H Assessment and Plan Plan 81 year male with a past medical history of hypertension, hyperlipidemia, diabetes, CKD, 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 Mechanical in nature, no fracture. PT eval before DC, declined rehab last time Adult failure to thrive: Patient attributes to food stuck sensation.? He is now tolerating liquid diet, speech and swallow eval UTI:? Patient has chronic indwelling Mcmahon placed during the last admission secondary to hydronephrosis. Culture is pending MARIALUISA on CKD:? Baseline creatinine around 1.4;? Creatine 1.52 . Hydronephrosis:? Also noted on the recent CT scan in January.? Persistent.? Patient has indwelling Mcmahon.? Patient to follow-up with Dr. Naqvi for outpatient for outpatient nephrostomy tube placement. History of prostate cancer with metastasis:? CT scan showed extensive metastasis to the spine-sclerotic lesions, liver lesions, lymphadenopathy.? Patient on Erleada.? Follows Dr. Lal. History of diabetes:? Noted to be mildly hyperglycemic on presentation.? Insulin sliding scale.? Monitor glucose. History of glaucoma: Continue home eye drops History of hypertension/hyperlipidemia: Continue home amlodipine, statin.? Hold home Lasix for now Pressure ulcer--surgery and wound care saw the patient -wound care , no surgerical intervention. Pt-recomended rehab DVT prophylaxis:? Lovenox Code status:? Full code Need for inpatient: awiting placement Quality Stroke Does the patient have a stroke diagnosis?: No VTE Prior VTE?: No VTE Risk Level:: Medical - moderate - high VTE Device Contraindication: Treatment Not Indicated VTE Drug Contraindication: N/A - Med Ordered
[2022-02-26] MEDS: diphenhydrAMINE HCL 25 MG TABLET PO (08:22)
[2022-02-26] MEDS: Insulin Lispro 100 UNIT/ML 3 ML VIAL SUBCUT ×2 (08:22→12:02)
[2022-02-26] MEDS: Aspirin Enteric Coated 81 MG TABLET.DR PO (08:22)
[2022-02-26] MEDS: Ferrous Sulfate 324 MG TABLET.DR PO (08:22)
[2022-02-26] MEDS: Brimonidine Tartrate 0.2% Oph 5 ML BOTTLE 1 DROP EYE-BOTH (08:25)
[2022-02-26] MEDS: Dorzolamide/Timolo 2.23%/0.68% 10 ML DRBTL 1 DROP EYE-RIGHT (08:25)
[2022-02-26] MEDS: Nystatin Powder 15 GM BOTTLE 1 APPL TOPICAL (08:25)
[2022-02-26] MEDS: 0.9 % Sodium Chloride Flush 3 ML SYRINGE IVFLUSH (08:27)
--- NOTE | 2022-02-26 09:19 | MHC.CM.PN ---
CM CONTACTED PT'S PCP DR TY PRIOR TO [phone] [id number] TO UPDATE ON PT/FAMILY PLAN FOR HOSPICE PLANNED AT [facility], CM SPOKE W/CLINICAL CREDENTIALING SPECIALIST WHO WAS COVERING FOR DR TY'S NURSE SPEEDY AND SHE REPORTED SHE WOULD UPDATE PT'S TEAM/DR TY, AT 9:07AM CM RECEIVED A MESSAGE FROM [facility] REPORTING PT IS APPROVED FOR HOSPICE/[facility] BOARD AND HE WILL NEED ACCEPTING FACILITY TO CONTACT HIM, CM HAS LET [facility] KNOW AND CM AWAITING TO HEAR BACK TO FINALIZE D/C TIME, [facility] AWARE.
[2022-02-26 11:49] VITALS: BP 135/65; PULSE 54; RESP 18; TEMP 36.3; O2SAT 98
[2022-02-26 11:55] LABS: Glucose, Whole Blood 241 mg/dL (60-115)
== END 2022-02-26 12:51 | disposition skilled nursing facility (03) | DRG 699 ==
LOC: HO.ED 17:00 → HO.EDOVER 19:55 → HO.S3 22:18
PROVIDERS: Internal Medicine; Physician Assistant; Admitting Provider Hospitalist; Emergency Provider Internal Medicine; Visit Provider Internal Medicine
DX: T83.511A Infection and inflammatory reaction due to indwelling urethral catheter, initial encounter (principal); N13.6 Pyonephrosis; C79.51 Secondary malignant neoplasm of bone; E87.1 Hypo-osmolality and hyponatremia; N17.9 Acute kidney failure, unspecified; Z51.5 Encounter for palliative care; I87.2 Venous insufficiency (chronic) (peripheral); I12.9 Hypertensive chronic kidney disease with stage 1 through stage 4 chronic kidney disease, or unspecified chronic kidney disease; N18.30 Chronic kidney disease, stage 3 unspecified; E11.22 Type 2 diabetes mellitus with diabetic chronic kidney disease; C61 Malignant neoplasm of prostate; E11.65 Type 2 diabetes mellitus with hyperglycemia; R62.7 Adult failure to thrive; Z68.32 Body mass index [BMI] 32.0-32.9, adult; R13.10 Dysphagia, unspecified; L30.9 Dermatitis, unspecified; E78.5 Hyperlipidemia, unspecified; H40.9 Unspecified glaucoma; L89.322 Pressure ulcer of left buttock, stage 2; L89.312 Pressure ulcer of right buttock, stage 2; E86.0 Dehydration; H54.8 Legal blindness, as defined in USA; Z20.822 Contact with and (suspected) exposure to COVID-19; Z88.0 Allergy status to penicillin; Z79.4 Long term (current) use of insulin; Z79.82 Long term (current) use of aspirin; Z79.899 Other long term (current) drug therapy
CPT/HCPCS: 36415; 70450; 72125; 74176; 80048; 80076; 81001; 82009; 82947; 83690; 83735; 85025; 87086; 87502; 87635; 92526; 92610; 93005; 96361; 96374; 97116; 97162; 99218; 99285; C1758; J0696; J1650; Q0163